=== PATIENT | female | born 1950 | race American Indian/Alaskan Native ===

== ENCOUNTER 2017-04-21 09:19 | Emergency (ER) | payer MEDICARE ==
[2017-04-21 09:55] LABS: Basophils % (Auto) 0.3 % (0.0-1.8); Eosinophils % (Auto) 1.6 % (0.0-4.3); Hemoglobin 11.9 gm/dl (10.1-14.3); Mean Corpuscular HGB Conc 33 % (30-34); Mean Corpuscular Hemoglobin 31 pg (28-32); Mean Corpuscular Volume 93 fl (79-97); Platelet Count 242 K/mm3 (140-440); Red Blood Count 3.87 M/mm3 (3.65-5.03); Red Cell Distribution Width 13.5 % (13.2-15.2); White Blood Count 7.3 K/mm3 (4.5-11.0)
[2017-04-21 10:07] LABS: INR 0.97 (0.87-1.13)
[2017-04-21 10:08] LABS: Partial Thromboplastin Time 27.8 Sec. (24.2-36.6)
[2017-04-21 10:10] LABS: Anion Gap 17 mmol/L; BUN/Creatinine Ratio 16.66; Blood Urea Nitrogen 15 mg/dL (7-17); Calcium 9.4 mg/dL (8.4-10.2); Carbon Dioxide 27 mmol/L (22-30); Glucose 340 mg/dL (65-100); Potassium 4.2 mmol/L (3.6-5.0); Sodium 136 mmol/L (137-145)
--- NOTE | 2017-04-21 10:26 | XRay Report ---
RIGHT TIBIA/FIBULA: History: Right leg swelling AP and lateral views of the right tibia/fibula demonstrate normal mineralization and contours for this patient's age. No destructive changes or fracture. There is mild diffuse soft tissue swelling. IMPRESSION: Mild soft tissue swelling.
[2017-04-21] MEDS ORDERED: ZOFRAN IV ONE (16:33)
[2017-04-21] MEDS ORDERED: LASIX IV ONE (16:33)
[2017-04-21] MEDS ORDERED: MORPHINE IV ONE (16:33)
[2017-04-21] MEDS ORDERED: TYLENOL PO ONE (18:08)
--- NOTE | 2017-04-21 19:30 | Cat Scan Report ---
FINAL REPORT PROCEDURE: CT HEAD/BRAIN WO CON TECHNIQUE: Computerized tomography of the head was performed without contrast material. HISTORY: Headache. DLP 1075.62 mGy-cm. COMPARISON: No prior studies are available for comparison. FINDINGS: Skull and scalp: Normal. Paranasal sinuses: Mild right sphenoid sinusitis. Ventricles and subarachnoid spaces: Normal. Cerebrum: No evidence of hemorrhage, acute infarction or mass. Punctate right basal ganglia calcifications. Small up to 4 millimeter areas of low attenuation right basal ganglia. Cerebellum and brainstem: No evidence of hemorrhage, acute infarction or mass. Vasculature: Mild atherosclerosis. Comments: None. IMPRESSION: No CT evidence of acute intracranial pathology. Areas of low in attenuation in the right basal ganglia likely small lacunes. Consider MRI of the brain for further evaluation if there is continued clinical concern and if patient has no contraindication to MRI. Right sphenoid sinusitis.
--- NOTE | 2017-04-21 19:33 | Emergency Department Report ---
HPI - General Chief Complaint: Extremity Injury, Lower Time Seen by Provider: 04/21/17 16:07 - HPI HPI: The patient is a 67-year-old female who presents for evaluation of headache and right leg pain. The patient reports mild achy frontal headache on and off, is exacerbated with movement, and right lower leg pain, moderate to severe, constant since onset, exacerbated with weightbearing, improved with rest, since sustaining a fall from standing 5 days ago. She states that she tripped 5 days ago, and struck her right lower leg and head on the ground. Since she has also experienced mild swelling to the right leg as well. She denies neuro deficits, neck pain, neck stiffness, chest pain, dyspnea, hemoptysis, back pain, abdominal pain, pain to the arms, paresthesias, motor deficit in the arms or legs. ED Past Medical Hx - Past Medical History Previous Medical History?: Yes Hx Hypertension: Yes Hx Diabetes: Yes Additional medical history: Hypercholesterolemia - Surgical History Past Surgical History?: Yes Additional Surgical History: Right side lymph node excision - Social History Smoking Status: Never Smoker Substance Use Type: None - Medications Home Medications: Home Medications Medication Instructions Recorded Confirmed Last Taken Type Albuterol Sulfate [Ventolin HFA] 2 puff IH Q4H PRN #1 hfa.aer.ad 12/08/14 Unknown Rx Azithromycin [Zithromax Z-RAHUL] 250 mg PO DAILY #6 tablet 12/08/14 Unknown Rx Benzonatate [Tessalon Perles] 100 mg PO Q8HR #30 capsule 12/08/14 Unknown Rx Acetaminophen/Codeine [Tylenol #3] 1 tab PO Q6H PRN #12 tab 04/21/17 Unknown Rx Furosemide [Lasix] 20 mg PO QDAY #10 tablet 04/21/17 Unknown Rx ED Review of Systems ROS: Stated complaint: FALL LEG PAIN Other details as noted in HPI Constitutional: denies: fever ENT: denies: throat or neck pain Respiratory: denies: cough, shortness of breath Cardiovascular: denies: chest pain Endocrine: denies unexplained weight loss or gain Gastrointestinal: denies: abdominal pain, nausea Genitourinary: denies: dysuria Musculoskeletal: reports right leg pain and leg swelling Skin: denies: rash Neurological: reports headache Hematological/Lymphatic: denies: easy bleeding or easy bruising Psych: denies sadness or hopelessness Physical Exam - Physical Exam Vital Signs: Vital Signs 04/21/17 09:31 Temperature 98.5 F Pulse Rate 70 Respiratory 16 Rate Blood Pressure 160/76 O2 Sat by Pulse 100 Oximetry Physical Exam: General: well-nourished, well-developed, no acute distress Head: Normocephalic, atraumatic Eyes: normal sclera, EOMI, PERRL ENT: Mucous membranes are pink and moist Neck: trachea midline, neck supple, No neck stiffness, no cervical adenopathy Respiratory: Breath sounds equal bilaterally, no wheezing, rales, or rhonchi Cardio: S1 and S2 present, no murmurs, rubs, gallops, capillary refill is brisk Abdomen: Normoactive bowel sounds, soft abdomen, no rigidity, no guarding or rebound tenderness Musc: Right lower leg anterior tenderness to palpation present, mild swelling, redness, and ecchymosis present as well, distal sensation, motor function and pulses intact in the right foot, compartments are soft and pliable in the right leg and foot, no signs of compartment syndrome Skin: No rash Neuro: no facial drooping, normal speech, alert oriented 3, no sensation or motor deficits, reflexes 2+ symmetric on DTR testing, no [place] deficit with finger to nose testing, no obvious gross neuro deficits Psych: Normal affect ED Course Vital Signs 04/21/17 09:31 Temperature 98.5 F Pulse Rate 70 Respiratory 16 Rate Blood Pressure 160/76 O2 Sat by Pulse 100 Oximetry ED Medical Decision Making - Lab Data Result diagrams: 04/21/17 09:41 04/21/17 09:41 - Medical Decision Making The patient was seen and examined by myself. The patient is placed on a athletic monitor and continuous pulse ox. On initial evaluation, the patient was found to be in no distress. Evaluation orders were placed. The patient is given morphine and Tylenol for her pain. X-ray of the tibia fibular right is unremarkable. Lab results revealed mildly elevated glucose of 300, and mildly elevated d-dimer level, and otherwise labs are unremarkable. Ultrasound of the right lower extremity is negative for DVT. The patient was reevaluated and reported that their symptoms were markedly improved. The patient is stable for discharge with outpatient follow-up. The patient is given follow-up and return instructions. The patient expressed understanding and agreed with the plan. The patient is discharged in stable condition. Critical care attestation.: If time is entered above; I have spent that time in minutes in the direct care of this critically ill patient, excluding procedure time. ED Disposition Clinical Impression: Acute post-traumatic headache, not intractable, Myalgia, Acute hyperglycemia Contusion of lower leg, right Qualifiers: Encounter type: initial encounter Qualified Code(s): S80.11XA - Contusion of right lower leg, initial encounter Disposition: TO HOME OR SELFCARE Is pt being admited?: No Does the pt Need Aspirin: No Condition: Stable Instructions: Cellulitis (ED), Acute Headache (ED), Contusion in Adults (ED), Musculoskeletal Pain (ED), Knee Pain (ED), Diabetic Hyperglycemia (ED) Prescriptions: Acetaminophen/Codeine [Tylenol #3] 1 tab PO Q6H PRN #12 tab PRN Reason: Pain Furosemide [Lasix] 20 mg PO QDAY #10 tablet Referrals: PRIMARY CARE, [Primary Care Provider] - 3-5 Days Time of Disposition: 19:30
[2017-04-21 20:04] VITALS: BP 188/78
--- NOTE | 2017-04-23 11:12 | Vascular Lab Report ---
Right Lower Extremity Venous Duplex Study: Reason for Exam: Pain of the right lower extremity. Comments on the Right: All veins visualized are freely compressible without evidence of internal echogenicity. Flow is spontaneous and phasic throughout. No evidence of acute or chronic thrombus is seen in any of the vessels visualized. Comments on the Left: A limited duplex study was done of the proximal veins of the left lower extremity. All veins visualized are freely compressible without evidence of internal echogenicity. Flow is spontaneous and phasic throughout. No evidence of acute or chronic thrombus is seen in any of the vessels visualized. Impression: No evidence of acute or chronic deep venous thrombosis in the right lower extremity.
== END 2017-04-21 20:05 | disposition home or self-care (01) ==
LOC: ED 09:19
DX: G44.319 Acute post-traumatic headache, not intractable (principal); S80.11XA Contusion of right lower leg, initial encounter; I10 Essential (primary) hypertension; E11.65 Type 2 diabetes mellitus with hyperglycemia; E78.00 Pure hypercholesterolemia, unspecified; W01.0XXA Fall on same level from slipping, tripping and stumbling without subsequent striking against object, initial encounter; Y93.89 Activity, other specified; Y92.89 Other specified places as the place of occurrence of the external cause; Y99.8 Other external cause status
CPT/HCPCS: 36415; 70450; 73590; 80048; 82962; 85025; 85379; 85610; 85730; 93971; 96374; 96375; 99285; J1940; J2270; J2405

== ENCOUNTER 2017-12-12 10:50 | Emergency (ER) | payer MEDICARE ==
--- NOTE | 2017-12-12 11:42 | Emergency Department Report ---
HPI - General Chief Complaint: Medical Clearance Time Seen by Provider: 12/12/17 11:29 - HPI HPI: Patient reports that she is off her insulin for 3 days and not feeling good today. She says she takes sliding scale insulin and also Levemir 40 units in the morning. She says she ran out. Denies any nausea or vomiting. Denies any chest pain or abdominal pain. Reported feeling of tiredness. Pain is 0-10. She has a history of high blood pressure and diabetes along with high cholesterol. Patient says she goes across the street for primary care. She said her hemoglobin A1c was greater than a last time but she cannot remember the specific number. Reports increased urination and thirst. Denies any shortness of breath. ED Past Medical Hx - Past Medical History Previous Medical History?: Yes Hx Hypertension: Yes Hx Diabetes: Yes Additional medical history: Hypercholesterolemia - Surgical History Past Surgical History?: Yes Additional Surgical History: Right side lymph node excision - Family History Family history: diabetes, hypertension - Social History Smoking Status: Never Smoker Substance Use Type: None - Medications Home Medications: Home Medications Medication Instructions Recorded Confirmed Last Taken Type Albuterol Sulfate [Ventolin HFA] 2 puff IH Q4H PRN #1 hfa.aer.ad 12/08/14 Unknown Rx Azithromycin [Zithromax Z-RAHUL] 250 mg PO DAILY #6 tablet 12/08/14 Unknown Rx Benzonatate [Tessalon Perles] 100 mg PO Q8HR #30 capsule 12/08/14 Unknown Rx Acetaminophen/Codeine [Tylenol #3] 1 tab PO Q6H PRN #12 tab 04/21/17 Unknown Rx Furosemide [Lasix] 20 mg PO QDAY #10 tablet 04/21/17 Unknown Rx Insulin Detemir [Levemir VIAL] 40 unit SQ QAM #1 vial 12/12/17 Unknown Rx ED Review of Systems ROS: Stated complaint: MEDICATION REFILL Other details as noted in HPI Comment: All other systems reviewed and negative Constitutional: weakness Respiratory: no symptoms reported Cardiovascular: denies: chest pain, palpitations, dyspnea on exertion, orthopnea , edema, syncope, paroxysmal nocturnal dyspnea Endocrine: increased hunger, increased thirst, increased urine. denies: excessive sweating, flushing, intolerance to cold, intolerance to heat, unexplained weight gain, unexplained weight loss Gastrointestinal: denies: abdominal pain, nausea, vomiting, diarrhea, constipation, hematemesis, melena, hematochezia Genitourinary: denies: urgency, dysuria, frequency, hematuria, discharge Musculoskeletal: denies: back pain, joint swelling, arthralgia, myalgia Skin: denies: rash Neurological: weakness. denies: headache, numbness, paresthesias, confusion, abnormal gait, vertigo Physical Exam - Physical Exam Vital Signs: Vital Signs 12/12/17 10:56 Temperature 98.4 F Pulse Rate 103 H Respiratory 16 Rate Blood Pressure 161/61 O2 Sat by Pulse 99 Oximetry Vital Signs 12/12/17 12/12/17 10:56 14:55 Temperature 98.4 F 97.1 F L Pulse Rate 103 H 80 Respiratory 16 18 Rate Blood Pressure 161/61 Blood Pressure 180/82 [Left] O2 Sat by Pulse 99 100 Oximetry General: This is a 67-year-old female well-nourished well-developed and nontoxic in appearance. Physical Exam: Head: Normocephalic, atraumatic, no abrasion, no bruising and no contusion. Eyes: Biateral pupils equal and reactive to light, bilateral EOM intact.. Bilateral conjunctival and sclera without injection, normal accommodation. Mouth: Moist, no pharyngeal exudate or erythema. No peritonsillar abscesses. Uvula is midline and oral airways patent. Neck: Supple, No Cervical adenopathy, full range of motion and no C-spine tenderness. No swelling or tracheal deviation normal reflexes Cardiovascular: S1, S2. Regular rate and rhythm. No murmur. Capillary refill is less then 3 seconds. Lungs: Clear to auscultate bilaterally. No rhonchi, wheezes or rales. No chest wall tenderness. No chest contusion. No bruising to chest. MSK: Strength 5/5 in all extremities. No joint deformity or crepitus. Normal inspection. Full range of motion to all extremities. No laceration, abrasion or ecchymotic area noted. Abdomen: Non-tender to palpate in all quadrants, no guarding or rebound tenderness, positive bowel sounds in all quadrants. No CVA tenderness. No hernia, bruit or mass. No rigidity or distention. Extremities: No clubbing, cyanosis or edema. +2 pulses. No neurovascular compromise Skin: Clean, dry and intact. No rash or lesions. Neurological: GCS at 15, Pt is alert and oriented 3 speech is clear . Bilateral hand extension course coordinator strong and equal. Normal gait. Negative Romberg and no pronator drift. Normal Reflexes. No motor or sensory deficit Back: No vertebral tenderness, no paraspinal tenderness. The bend over and touch his toes without any difficulties. Ambulates without any difficulties. Psych: Normal mood and behavior ED Course Vital Signs 12/12/17 10:56 Temperature 98.4 F Pulse Rate 103 H Respiratory 16 Rate Blood Pressure 161/61 O2 Sat by Pulse 99 Oximetry Vital Signs 12/12/17 12/12/17 10:56 14:55 Temperature 98.4 F 97.1 F L Pulse Rate 103 H 80 Respiratory 16 18 Rate Blood Pressure 161/61 Blood Pressure 180/82 [Left] O2 Sat by Pulse 99 100 Oximetry - Reevaluation(s) Reevaluation #1: 12/12/17 13:03 BG 560. ivf x2 liter. second liter infusing. Insulin 10 units r,egular Reevaluation #2: 12/12/17 14:13 Patient is stable at present. Second units of normal saline infusing. ED Medical Decision Making - Lab Data Result diagrams: 12/12/17 11:53 12/12/17 11:53 Lab Results 12/12/17 12/12/17 12/12/17 Range/Units 11:02 11:53 11:53 WBC 10.3 (4.5-11.0) K/mm3 RBC 3.81 (3.65-5.03) M/mm3 Hgb 12.2 (10.1-14.3) gm/dl Hct 36.4 (30.3-42.9) % MCV 95 (79-97) fl MCH 32 (28-32) pg MCHC 34 (30-34) % RDW 13.4 (13.2-15.2) % Plt Count 272 (140-440) K/mm3 Lymph % (Auto) 14.1 (13.4-35.0) % [place] % (Auto) 4.4 (0.0-7.3) % Eos % (Auto) 0.6 (0.0-4.3) % Baso % (Auto) 0.3 (0.0-1.8) % Lymph # 1.5 (1.2-5.4) K/mm3 [place] # 0.5 (0.0-0.8) K/mm3 Eos # 0.1 (0.0-0.4) K/mm3 Baso # 0.0 (0.0-0.1) K/mm3 Seg Neutrophils % 80.6 H (40.0-70.0) % Seg Neutrophils # 8.3 H (1.8-7.7) K/mm3 VBG pH (7.320-7.420) Sodium (137-145) mmol/L Potassium (3.6-5.0) mmol/L Chloride (98-107) mmol/L Carbon Dioxide (22-30) mmol/L Anion Gap mmol/L BUN (7-17) mg/dL Creatinine (0.7-1.2) mg/dL Estimated GFR ml/min BUN/Creatinine Ratio % Glucose (65-100) mg/dL POC Glucose 416 H (70-105) Calcium (8.4-10.2) mg/dL Total Bilirubin (0.1-1.2) mg/dL Direct Bilirubin (0-0.2) mg/dL Indirect Bilirubin mg/dL AST (5-40) units/L ALT (7-56) units/L Alkaline Phosphatase (35-129) units/L Total Protein (6.3-8.2) g/dL Albumin (3.9-5) g/dL Albumin/Globulin Ratio % Urine Color Straw (Yellow) Urine Turbidity Clear (Clear) Urine pH 5.0 (5.0-7.0) Ur Specific [place] 1.024 (1.003-1.030) Urine Protein <15 mg/dl (Negative) mg/dL Urine Glucose (UA) >=500 (Negative) mg/dL Urine Ketones 80 (Negative) mg/dL Urine Blood Neg (Negative) Urine Nitrite Neg (Negative) Urine Bilirubin Neg (Negative) Urine Urobilinogen < 2.0 (<2.0) mg/dL Ur Leukocyte Esterase Neg (Negative) Urine WBC (Auto) 3.0 (0.0-6.0) /HPF Urine RBC (Auto) 1.0 (0.0-6.0) /HPF U Epithel Cells (Auto) 4.0 (0-13.0) /HPF Urine Mucus Few /HPF 12/12/17 12/12/17 Range/Units 11:53 11:53 WBC (4.5-11.0) K/mm3 RBC (3.65-5.03) M/mm3 Hgb (10.1-14.3) gm/dl Hct (30.3-42.9) % MCV (79-97) fl MCH (28-32) pg MCHC (30-34) % RDW (13.2-15.2) % Plt Count (140-440) K/mm3 Lymph % (Auto) (13.4-35.0) % [place] % (Auto) (0.0-7.3) % Eos % (Auto) (0.0-4.3) % Baso % (Auto) (0.0-1.8) % Lymph # (1.2-5.4) K/mm3 [place] # (0.0-0.8) K/mm3 Eos # (0.0-0.4) K/mm3 Baso # (0.0-0.1) K/mm3 Seg Neutrophils % (40.0-70.0) % Seg Neutrophils # (1.8-7.7) K/mm3 VBG pH 7.304 L (7.320-7.420) Sodium 135 L (137-145) mmol/L Potassium 3.9 (3.6-5.0) mmol/L Chloride 91.4 L (98-107) mmol/L Carbon Dioxide 23 (22-30) mmol/L Anion Gap 25 mmol/L BUN 14 (7-17) mg/dL Creatinine 1.0 (0.7-1.2) mg/dL Estimated GFR > 60 ml/min BUN/Creatinine Ratio 14 % Glucose 560 H* (65-100) mg/dL POC Glucose (70-105) Calcium 8.9 (8.4-10.2) mg/dL Total Bilirubin 0.50 (0.1-1.2) mg/dL Direct Bilirubin < 0.2 (0-0.2) mg/dL Indirect Bilirubin 0.3 mg/dL AST 13 (5-40) units/L ALT 12 (7-56) units/L Alkaline Phosphatase 118 (35-129) units/L Total Protein 6.9 (6.3-8.2) g/dL Albumin 3.8 L (3.9-5) g/dL Albumin/Globulin Ratio 1.2 % Urine Color (Yellow) Urine Turbidity (Clear) Urine pH (5.0-7.0) Ur Specific [place] (1.003-1.030) Urine Protein (Negative) mg/dL Urine Glucose (UA) (Negative) mg/dL Urine Ketones (Negative) mg/dL Urine Blood (Negative) Urine Nitrite (Negative) Urine Bilirubin (Negative) Urine Urobilinogen (<2.0) mg/dL Ur Leukocyte Esterase (Negative) Urine WBC (Auto) (0.0-6.0) /HPF Urine RBC (Auto) (0.0-6.0) /HPF U Epithel Cells (Auto) (0-13.0) /HPF Urine Mucus /HPF Anion gap:21.5 mEq/L Corrected Anion Gap for Albumin High anion gap acidosis - Medical Decision Making ED course: Patient presented to emergency room complaining of not feeling well because her blood sugar is high and she's been out of her insulin for 3 days. Denies any nausea vomiting, abdominal pain. Physical findings with normal exam. Laboratory findings urine with positive ketones, positive glucose and protein. Chemistry with blood glucose of 560 ,corrected anion gap including albumin was 21.9 her venous pH is 7.3 which is slightly decrease in her CO2 is 23 which is stable. Sodium of 134. Patient received 2 L of normal saline IV, 10 units of regular insulin which brought her blood sugar down to 255. Patient stable throughout ED course she was able to tolerate water without any nausea or vomiting. Patient says she felt a lot better after IV fluids and insulin. She'll be discharged home to follow up with her primary care physician for management of her blood glucose. I discussed with her that she needs to keep a record of her blood sugar and take to her primary care visit with her for evaluation. Patient discharged home with prescription for Levemir insulin and regular insulin. Critical care attestation.: If time is entered above; I have spent that time in minutes in the direct care of this critically ill patient, excluding procedure time. ED Disposition Clinical Impression: Urine ketone, Glucosuria, Elevated blood pressure reading with diagnosis of hypertension Hyperglycemia due to type 2 diabetes mellitus Qualifiers: Diabetes mellitus prison insulin use: with prison use Qualified Code(s): E11.65 - Type 2 diabetes mellitus with hyperglycemia; Z79.4 - [facility] (current ) use of insulin Disposition: DC-01 TO HOME OR SELFCARE Is pt being admited?: No Does the pt Need Aspirin: No Condition: Stable Instructions: Diabetes Mellitus Type 2 in Adults (ED), Hypertension (ED), Diabetic Hyperglycemia (ED), How to Check Your Blood Sugar (ED) Additional Instructions: Please take insulin as instructed by her primary care physician Document your blood sugar before meals and at bedtime and take your primary care physician with you. Please follow diabetic diet that was given to you by her primary care doctor Increase her fluid intake to include water Prescriptions: Insulin Detemir [Levemir VIAL] 40 unit SQ QAM #1 vial Referrals: PRIMARY CAREMD [Primary Care Provider] - 12/13/17 ESTELA OH MD [Staff Physician] - 12/14/17 Forms: Work/School Release Form(ED)
[2017-12-12] MEDS ORDERED: NACL 0.9% 1000 ML 1,000 ML IV ONE ×2 (11:43→13:02)
[2017-12-12 12:09] LABS: Basophils % (Auto) 0.3 % (0.0-1.8); Eosinophils # (Auto) 0.1 K/mm3 (0.0-0.4); Eosinophils % (Auto) 0.6 % (0.0-4.3); Hematocrit 36.4 % (30.3-42.9); Hemoglobin 12.2 gm/dl (10.1-14.3); Lymphocytes # (Auto) 1.5 K/mm3 (1.2-5.4); Lymphocytes % (Auto) 14.1 % (13.4-35.0); Mean Corpuscular HGB Conc 34 % (30-34); Mean Corpuscular Hemoglobin 32 pg (28-32); Mean Corpuscular Volume 95 fl (79-97); Monocytes # (Auto) 0.5 K/mm3 (0.0-0.8); Monocytes % (Auto) 4.4 % (0.0-7.3); Platelet Count 272 K/mm3 (140-440); Red Blood Count 3.81 M/mm3 (3.65-5.03); Red Cell Distribution Width 13.4 % (13.2-15.2)
[2017-12-12 12:12] LABS: Bilirubin,Urine NEG (Negative); Blood,Urine NEG (Negative); Color,Urine Straw (Yellow); Mucus,Urine FEW /HPF; Protein,Urine <15 mg/dL mg/dL (Negative); Urobilinogen,Urine < 2.0 mg/dL (<2.0)
[2017-12-12 12:23] LABS: Alanine Aminotransferase 12 units/L (7-56); Albumin 3.8 g/dL (3.9-5); BUN/Creatinine Ratio 14; Blood Urea Nitrogen 14 mg/dL (7-17); Calcium 8.9 mg/dL (8.4-10.2); Hemolysis Index 27
[2017-12-12 12:34] LABS: Bilirubin,Direct < 0.2 mg/dL (0-0.2)
[2017-12-12] MEDS ORDERED: HumuLIN R IV ONE (13:02)
[2017-12-12 16:16] VITALS: BP 157/82
== END 2017-12-12 16:12 | disposition home or self-care (01) ==
LOC: ED 10:50
DX: I10 Essential (primary) hypertension (principal); E11.65 Type 2 diabetes mellitus with hyperglycemia; E78.00 Pure hypercholesterolemia, unspecified
CPT/HCPCS: 36415; 80048; 80074; 81001; 82805; 82962; 85025; 96361; 96374; 99284; J7030; J1815

== ENCOUNTER 2018-03-17 08:06 | Emergency (ER) | payer MEDICARE ==
[2018-03-17 08:38] LABS: Basophils % (Auto) 0.4 % (0.0-1.8); Eosinophils # (Auto) 0.1 K/mm3 (0.0-0.4); Eosinophils % (Auto) 1.3 % (0.0-4.3); Hematocrit 36.1 % (30.3-42.9); Hemoglobin 12.3 gm/dl (10.1-14.3); Lymphocytes # (Auto) 2.1 K/mm3 (1.2-5.4); Lymphocytes % (Auto) 30.4 % (13.4-35.0); Mean Corpuscular HGB Conc 34 % (30-34); Mean Corpuscular Hemoglobin 32 pg (28-32); Mean Corpuscular Volume 95 fl (79-97); Monocytes # (Auto) 0.6 K/mm3 (0.0-0.8); Monocytes % (Auto) 9.2 % (0.0-7.3); Platelet Count 275 K/mm3 (140-440); Red Blood Count 3.81 M/mm3 (3.65-5.03); Red Cell Distribution Width 13.3 % (13.2-15.2)
[2018-03-17 08:53] LABS: Alanine Aminotransferase 9 units/L (7-56); Albumin 3.9 g/dL (3.9-5); BUN/Creatinine Ratio 13; Blood Urea Nitrogen 13 mg/dL (7-17); Calcium 9.3 mg/dL (8.4-10.2); Hemolysis Index 3; Lipase 18 units/L (13-60)
[2018-03-17 08:54] LABS: Bacteria,Urine 1+ /HPF (Negative); Bilirubin,Urine NEG (Negative); Blood,Urine NEG (Negative); Color,Urine Yellow (Yellow); Hyaline Casts,Urine 1 /LPF; Mucus,Urine FEW /HPF; Protein,Urine <15 mg/dL mg/dL (Negative); Urobilinogen,Urine < 2.0 mg/dL (<2.0)
[2018-03-17] MEDS ORDERED: HumuLIN R IV ONE (11:27)
[2018-03-17] MEDS ORDERED: NACL 0.9% 500 ML 500 ML IV ONE (11:28)
[2018-03-17] MEDS ORDERED: TORADOL IV ONE (11:28)
--- NOTE | 2018-03-17 12:31 | Emergency Department Report ---
ED Abdominal Pain HPI - General Chief Complaint: Abdominal Pain Stated Complaint: LOWER SIDE ABD PAIN Time Seen by Provider: 03/17/18 11:19 Source: patient Mode of arrival: Ambulatory Limitations: No Limitations - History of Present Illness Initial Comments: 68-year-old female with a past medical history of elevated cholesterol, diabetes , hypertension, and previous cholecystectomy presents to the hospital complaining of left flank pain 1 week. Pain is intermittent and aching. Pain comes and goes without any specific activity or palpation. Patient also states she's having difficulty moving her bowels and did have a bowel movement after taking a lot of Ex-Lax. She did complain of nausea with 2 episodes of vomiting that has since resolved. She denies fever, dysuria, hematuria, diarrhea, melena , hematochezia, or hematemesis. Severity scale (0 -10): 2 - Related Data Previous Rx's Medication Instructions Recorded Last Taken Type Albuterol Sulfate [Ventolin HFA] 2 puff IH Q4H PRN #1 hfa.aer.ad 12/08/14 Unknown Rx Azithromycin [Zithromax Z-RAHUL] 250 mg PO DAILY #6 tablet 12/08/14 Unknown Rx Benzonatate [Tessalon Perles] 100 mg PO Q8HR #30 capsule 12/08/14 Unknown Rx Acetaminophen/Codeine [Tylenol #3] 1 tab PO Q6H PRN #12 tab 04/21/17 Unknown Rx Furosemide [Lasix] 20 mg PO QDAY #10 tablet 04/21/17 Unknown Rx Insulin Detemir [Levemir Flextouch] 40 unit SQ QAM #1 insuln.pen 12/12/17 Unknown Rx Docusate Sodium [Colace] 100 mg PO BID PRN #20 capsule 03/17/18 Unknown Rx Ibuprofen [Motrin] 800 mg PO Q8HR PRN #30 tablet 03/17/18 Unknown Rx traMADol [Ultram 50 MG tab] 50 mg PO Q6HR PRN #20 tablet 03/17/18 Unknown Rx Allergies Allergy/AdvReac Type Severity Reaction Status Date / Time No Known Allergies Allergy Unverified 12/08/14 16:58 ED Review of Systems ROS: Stated complaint: LOWER SIDE ABD PAIN Other details as noted in HPI Comment: All other systems reviewed and negative ED Past Medical Hx - Past Medical History Previous Medical History?: Yes Hx Hypertension: Yes Hx Diabetes: Yes Additional medical history: Hypercholesterolemia - Surgical History Past Surgical History?: Yes Hx Cholecystectomy: Yes Additional Surgical History: Right side lymph node excision - Social History Smoking Status: Current Every Day Smoker Substance Use Type: Prescribed - Medications Home Medications: Home Medications Medication Instructions Recorded Confirmed Last Taken Type Albuterol Sulfate [Ventolin HFA] 2 puff IH Q4H PRN #1 hfa.aer.ad 12/08/14 Unknown Rx Azithromycin [Zithromax Z-RAHUL] 250 mg PO DAILY #6 tablet 12/08/14 Unknown Rx Benzonatate [Tessalon Perles] 100 mg PO Q8HR #30 capsule 12/08/14 Unknown Rx Acetaminophen/Codeine [Tylenol #3] 1 tab PO Q6H PRN #12 tab 04/21/17 Unknown Rx Furosemide [Lasix] 20 mg PO QDAY #10 tablet 04/21/17 Unknown Rx Insulin Detemir [Levemir Flextouch] 40 unit SQ QAM #1 insuln.pen 12/12/17 Unknown Rx Docusate Sodium [Colace] 100 mg PO BID PRN #20 capsule 03/17/18 Unknown Rx Ibuprofen [Motrin] 800 mg PO Q8HR PRN #30 tablet 03/17/18 Unknown Rx traMADol [Ultram 50 MG tab] 50 mg PO Q6HR PRN #20 tablet 03/17/18 Unknown Rx ED Physical Exam - General Limitations: No Limitations - Other Other exam information: General: No limitations, patient is alert in no acute distress Head exam: Atraumatic, normocephalic Eyes exam: Normal appearance ENT: Moist mucous membrane, normal oropharynx Neck exam: Normal inspection, full range of motion, no meningismus nontender Respiratory exam: Clear to auscultation bilateral, no wheezes, rales, crackles Cardiovascular: Normal rate and rhythm, normal heart sounds Abdomen: Soft, nondistended, and nontender, with normal bowel sounds, no rebound, or guarding Extremity: Full range of motion normal inspection no deformity Back: Normal Inspection, full range of motion, pain at the left flank area but I reproduce Neurologic: Alert, oriented x3, cranial nerves intact, no motor or sensory deficit Psychiatric: normal affect, normal mood Skin: Warm, dry, intact ED Course Vital Signs 03/17/18 08:12 Temperature 98.2 F Pulse Rate 85 Respiratory 18 Rate Blood Pressure 165/70 O2 Sat by Pulse 100 Oximetry ED Medical Decision Making - Lab Data Result diagrams: 03/17/18 08:26 03/17/18 08:26 Lab Results 03/17/18 03/17/18 03/17/18 Range/Units 08:26 08:26 08:28 WBC 7.0 (4.5-11.0) K/mm3 RBC 3.81 (3.65-5.03) M/mm3 Hgb 12.3 (10.1-14.3) gm/dl Hct 36.1 (30.3-42.9) % MCV 95 (79-97) fl MCH 32 (28-32) pg MCHC 34 (30-34) % RDW 13.3 (13.2-15.2) % Plt Count 275 (140-440) K/mm3 Lymph % (Auto) 30.4 (13.4-35.0) % [place] % (Auto) 9.2 H (0.0-7.3) % Eos % (Auto) 1.3 (0.0-4.3) % Baso % (Auto) 0.4 (0.0-1.8) % Lymph # 2.1 (1.2-5.4) K/mm3 [place] # 0.6 (0.0-0.8) K/mm3 Eos # 0.1 (0.0-0.4) K/mm3 Baso # 0.0 (0.0-0.1) K/mm3 Seg Neutrophils % 58.7 (40.0-70.0) % Seg Neutrophils # 4.1 (1.8-7.7) K/mm3 Sodium 133 L (137-145) mmol/L Potassium 3.9 (3.6-5.0) mmol/L Chloride 89.9 L (98-107) mmol/L Carbon Dioxide 27 (22-30) mmol/L Anion Gap 20 mmol/L BUN 13 (7-17) mg/dL Creatinine 1.0 (0.7-1.2) mg/dL Estimated GFR > 60 ml/min BUN/Creatinine Ratio 13 % Glucose 309 H (65-100) mg/dL Calcium 9.3 (8.4-10.2) mg/dL Total Bilirubin 0.50 (0.1-1.2) mg/dL AST 13 (5-40) units/L ALT 9 (7-56) units/L Alkaline Phosphatase 109 (35-129) units/L Total Protein 7.0 (6.3-8.2) g/dL Albumin 3.9 (3.9-5) g/dL Albumin/Globulin Ratio 1.3 % Lipase 18 (13-60) units/L Urine Color Yellow (Yellow) Urine Turbidity Clear (Clear) Urine pH 5.0 (5.0-7.0) Ur Specific [place] 1.013 (1.003-1.030) Urine Protein <15 mg/dl (Negative) mg/dL Urine Glucose (UA) >=500 (Negative) mg/dL Urine Ketones Tr (Negative) mg/dL Urine Blood Neg (Negative) Urine Nitrite Neg (Negative) Urine Bilirubin Neg (Negative) Urine Urobilinogen < 2.0 (<2.0) mg/dL Ur Leukocyte Esterase Tr (Negative) Urine WBC (Auto) 3.0 (0.0-6.0) /HPF Urine RBC (Auto) 3.0 (0.0-6.0) /HPF U Epithel Cells (Auto) 23.0 H (0-13.0) /HPF Urine Bacteria (Auto) 1+ (Negative) /HPF Hyaline Casts 1 /LPF Urine Mucus Few /HPF - Radiology Data Radiology results: report reviewed CT abdomen and pelvis noncontrast,: unremarkable urinary tract. Nonobstructing umbilical hernia. Severe degenerative lower thoracic and lumbar changes. - Medical Decision Making Patient has left flank pain exacerbated with movement while in the ED. Labs a urine unremarkable with exception of hyperglycemia which was improved with treatment in the ED. Patient was fed prior to discharge. Pain improved with ED treatment of Toradol. Tramadol will be provided prior to discharge and additional medication will be prescribed. - Differential Diagnosis renal colic, UTI, constipation, diverticulitis, muscle strain Critical Care Time: No Critical care attestation.: If time is entered above; I have spent that time in minutes in the direct care of this critically ill patient, excluding procedure time. ED Disposition Clinical Impression: Flank strain, DJD (degenerative joint disease), thoracolumbar, Diabetes Disposition: DC-01 TO HOME OR SELFCARE Is pt being admited?: No Does the pt Need Aspirin: No Condition: Stable Instructions: Flank Pain (ED), Degenerative Disc Disease (ED), Diabetes Mellitus Type 2 in Adults (ED) Additional Instructions: Follow-up with the primary care doctor. Return is symptoms worsen as indicated by your discharge instructed. Take medications as prescribed. Prescriptions: Docusate Sodium [Colace] 100 mg PO BID PRN #20 capsule PRN Reason: Constipation Ibuprofen [Motrin] 800 mg PO Q8HR PRN #30 tablet PRN Reason: Pain traMADol [Ultram 50 MG tab] 50 mg PO Q6HR PRN #20 tablet PRN Reason: Pain Referrals: PRIMARY CARE, [Primary Care Provider] - 3-5 Days Time of Disposition: 13:50
--- NOTE | 2018-03-17 13:05 | Cat Scan Report ---
CT abdomen and pelvis without contrast: Right flank pain and constipation. Transverse images are performed from the lung bases to the ischium with coronal and sagittal 2-D reformatted images. The visualized lung bases are clear. The gallbladder has been removed. The abdominal and retroperitoneal organs appear normal. Specifically no evidence of renal calcification. The abdominal aorta is normal in size and contour. The unopacified bowel and mesentery appear normal. The appendix is not identified. No evidence of inflammatory change is noted. No abnormal collections. There is an umbilical hernia containing mesenteric fat. The hernia measures 14 mm in width. There are some calcifications in the uterus most likely related to small fibroids. There is diffuse spondylosis of the lower thoracic and lumbar levels. There is mild retrolisthesis of L2 on L3. There is diffuse narrowing of the interspaces in the lower thoracic and upper lumbar levels as well as L5. Impressions: 1. Unremarkable urinary tract. 2. Nonobstructing umbilical hernia. 3. Severe degenerative lower thoracic and lumbar changes.
[2018-03-17] MEDS ORDERED: ULTRAM PO ONE (13:46)
[2018-03-17 14:11] VITALS: BP 181/57
== END 2018-03-17 14:10 | disposition home or self-care (01) ==
LOC: ED 08:06
DX: M47.9 Spondylosis, unspecified (principal); I10 Essential (primary) hypertension; E11.9 Type 2 diabetes mellitus without complications; F17.200 Nicotine dependence, unspecified, uncomplicated; Z79.4 Long term (current) use of insulin
CPT/HCPCS: 36415; 74176; 80053; 81001; 82962; 83690; 85025; 96374; 96375; 99284; J1885; J7040; J1815

== ENCOUNTER 2020-02-12 20:10 | Inpatient (IN) | payer MEDICARE, OTHER ==
[2020-02-12] MEDS ORDERED: SODIUM CHLORIDE 0.9% 1000 ML 1,000 ML IV ONE ×2 (20:17→21:50)
--- NOTE | 2020-02-12 20:19 | Emergency Department Report ---
ED General Adult HPI - General Chief complaint: Weakness Stated complaint: HIGH BLOOD SUGAR PUI?: No Time Seen by Provider: 02/12/20 20:14 Source: patient, EMS (Verbal report received from emergency medical services. EMS documentation not available at time of chart dictation ), RN notes reviewed, old records reviewed Mode of arrival: Stretcher Limitations: Altered Mental Status, Physical Limitation - History of Present Illness Initial comments: Patient is a 69-year-old female. She has a history of diabetes. She also has a history of COPD. She does not know who her primary care doctor is. History obtained mostly from EMS. Apparently, emergency services were called because the patient was having weakness, confusion, nausea vomiting and hyperglycemia. The patient is mildly confused, but she tells me that she has been having nausea and vomiting, weakness, abdominal pain, malaise and fatigue. She denies headache, neck pain, chest pain, shortness of breath, irritative and obstructive urinary symptoms. She is not sure if she is taking any diabetic medications. She has difficulty describing exacerbating or relieving factors. -: unknown Consistency: other Improves with: other Worsens with: other Associated Symptoms: other - Related Data Previous Rx's Medication Instructions Recorded Last Taken Type Albuterol Sulfate [Ventolin HFA] 2 puff IH Q4H PRN #1 hfa.aer.ad 12/08/14 Unknown Rx Azithromycin [Zithromax Z-RAHUL] 250 mg PO DAILY #6 tablet 12/08/14 Unknown Rx Benzonatate [Tessalon Perles] 100 mg PO Q8HR #30 capsule 12/08/14 Unknown Rx Acetaminophen/Codeine [Tylenol #3] 1 tab PO Q6H PRN #12 tab 04/21/17 Unknown Rx Furosemide [Lasix] 20 mg PO QDAY #10 tablet 04/21/17 Unknown Rx Insulin Detemir (Nf) [Levemir 40 unit SQ QAM #1 insuln.pen 12/12/17 Unknown Rx Flextouch] Docusate Sodium [Colace] 100 mg PO BID PRN #20 capsule 03/17/18 Unknown Rx Ibuprofen [Motrin] 800 mg PO Q8HR PRN #30 tablet 03/17/18 Unknown Rx traMADoL [Ultram 50 MG tab] 50 mg PO Q6HR PRN #20 tablet 03/17/18 Unknown Rx Allergies Allergy/AdvReac Type Severity Reaction Status Date / Time No Known Allergies Allergy Unverified 12/08/14 16:58 ED Review of Systems ROS: Stated complaint: HIGH BLOOD SUGAR Other details as noted in HPI Comment: Unobtainable due to pts medical conditions Constitutional: malaise, weakness Endocrine: increased thirst, increased urine Gastrointestinal: abdominal pain ED Past Medical Hx - Past Medical History Hx Hypertension: Yes Hx Diabetes: Yes Additional medical history: Hypercholesterolemia - Surgical History Hx Cholecystectomy: Yes Additional Surgical History: Right side lymph node excision - Social History Smoking Status: Current Every Day Smoker Substance Use Type: Prescribed - Medications Home Medications: Home Medications Medication Instructions Recorded Confirmed Last Taken Type Albuterol Sulfate [Ventolin HFA] 2 puff IH Q4H PRN #1 hfa.aer.ad 12/08/14 Unknown Rx Azithromycin [Zithromax Z-RAHUL] 250 mg PO DAILY #6 tablet 12/08/14 Unknown Rx Benzonatate [Tessalon Perles] 100 mg PO Q8HR #30 capsule 12/08/14 Unknown Rx Acetaminophen/Codeine [Tylenol #3] 1 tab PO Q6H PRN #12 tab 04/21/17 Unknown Rx Furosemide [Lasix] 20 mg PO QDAY #10 tablet 04/21/17 Unknown Rx Insulin Detemir (Nf) [Levemir 40 unit SQ QAM #1 insuln.pen 12/12/17 Unknown Rx Flextouch] Docusate Sodium [Colace] 100 mg PO BID PRN #20 capsule 03/17/18 Unknown Rx Ibuprofen [Motrin] 800 mg PO Q8HR PRN #30 tablet 03/17/18 Unknown Rx traMADoL [Ultram 50 MG tab] 50 mg PO Q6HR PRN #20 tablet 03/17/18 Unknown Rx ED Physical Exam - General Limitations: Other (Confusion, weakness) General appearance: anxious, in distress, other (The patient is listless) - Head Head exam: Present: atraumatic, normocephalic - Eye Eye exam: Present: normal appearance, EOMI. Absent: nystagmus - ENT ENT exam: Present: mucous membranes dry, normal external ear exam - Neck Neck exam: Present: normal inspection, full ROM. Absent: tenderness, meningismus - Respiratory Respiratory exam: Present: decreased breath sounds. Absent: respiratory distress - Cardiovascular Cardiovascular Exam: Present: normal rhythm, tachycardia, normal heart sounds. Absent: systolic murmur, diastolic murmur, rubs, gallop - GI/Abdominal GI/Abdominal exam: Present: soft, tenderness. Absent: distended, guarding, rebound, rigid, pulsatile mass - Extremities Exam Extremities exam: Present: normal inspection, full ROM, other (2+ pulses noted in the bilateral upper and lower extremities. There is no palpable cord. negative Homans sign. Muscular compartments are soft. The pelvis is stable.). Absent: calf tenderness - Back Exam Back exam: Present: normal inspection, full ROM. Absent: tenderness, CVA tende rness (R), CVA tenderness (L), paraspinal tenderness, vertebral tenderness - Neurological Exam Neurological exam: Present: alert, other (No facial droop. Tongue midline. Extraocular movements intact bilaterally. Facial sensation intact to light touch in V1, V2, V3 distribution bilaterally. 5 and a 5 strength in 4 extremities. Sensation intact to light touch in 4 extremities.) - Psychiatric Psychiatric exam: Present: anxious - Skin Skin exam: Present: warm, dry, intact, normal color. Absent: rash ED Course Vital Signs 02/12/20 02/12/20 02/12/20 20:17 20:24 20:30 Temperature 97.8 F Pulse Rate 100 H 106 H Respiratory 18 18 16 Rate Blood Pressure 150/51 150/51 O2 Sat by Pulse 100 100 100 Oximetry 02/12/20 02/12/20 02/12/20 21:00 21:09 21:46 Temperature 96.2 F L Pulse Rate 140 H 99 H Respiratory 21 21 Rate Blood Pressure 127/52 134/57 O2 Sat by Pulse 100 100 Oximetry 02/12/20 02/12/20 22:06 22:16 Temperature Pulse Rate 100 H 101 H Respiratory 17 22 Rate Blood Pressure 134/57 134/48 O2 Sat by Pulse 100 100 Oximetry - Reevaluation(s) Reevaluation #1: 02/12/20 21:48 Differential diagnosis, including but not limited to: Diabetic hyperglycemia, diabetic ketoacidosis, hyperosmolar state, volume depletion, dehydration, pneumonia, urinary tract infection, intracranial lesion, intra-abdominal lesion Assessment and plan: 69-year-old female with complaint of generalized weakness, malaise and fatigue, nausea vomiting abdominal pain, slightly confused, GCS of 14, no history of trauma, found to have evidence of hyperglycemia, anion gap acidosis, leukocytosis, and lactic acidosis. Patient does not have any neck pain or stiffness, or nuchal rigidity. She is alert and oriented to name, place and location. This is not suggestive of meningitis. We do suspect a toxic metabolic encephalopathy, likely secondary to hyperosmolar state versus diabetic ketoacidosis. IV fluids, insulin, antibiotics ordered. CT scan brain, abdomen pelvis ordered. She will be admitted to the medical service once her diagnostics have resulted. Reevaluation #2: 02/12/20 22:15 Dr Kev Payton to admit Reevaluation #3: 02/12/20 22:28 CT scan brain negative for acute findings, CT scan abdomen pelvis negative for acute emergent findings. Incidental orthopedic findings can be followed up as an outpatient once she has been medically optimized. ED Medical Decision Making - Lab Data Result diagrams: 02/12/20 20:32 02/12/20 21:38 Vital Signs 02/12/20 02/12/20 20:17 20:24 Temperature 97.8 F Pulse Rate 100 H Respiratory 18 18 Rate Blood Pressure 150/51 O2 Sat by Pulse 100 100 Oximetry Lab Results 02/12/20 02/12/20 Range/Units 20:32 20:32 WBC 16.9 H (4.5-11.0) K/mm3 RBC 3.27 L (3.65-5.03) M/mm3 Hgb 10.5 (10.1-14.3) gm/dl Hct 36.8 (30.3-42.9) % MCV 113 H (79-97) fl MCH 32 (28-32) pg MCHC 29 L (30-34) % RDW 15.6 H (13.2-15.2) % Plt Count 260 (140-440) K/mm3 Lymph % (Auto) 7.4 L (13.4-35.0) % [place] % (Auto) 7.7 H (0.0-7.3) % Eos % (Auto) 0.3 (0.0-4.3) % Baso % (Auto) 0.4 (0.0-1.8) % Lymph # 1.2 (1.2-5.4) K/mm3 [place] # 1.3 H (0.0-0.8) K/mm3 Eos # 0.0 (0.0-0.4) K/mm3 Baso # 0.1 (0.0-0.1) K/mm3 Seg Neutrophils % 84.2 H (40.0-70.0) % Seg Neutrophils # 14.2 H (1.8-7.7) K/mm3 VBG pH 7.076 L* (7.320-7.420) - EKG Data -: EKG Interpreted by Me EKG shows normal: sinus rhythm Rate: bradycardia - EKG Data 02/12/20 21:48 Sinus rhythm, 96 bpm, OR interval within normal limits, QTC 482 ms. There is motion artifact. Premature complexes. Not a STEMI. - Radiology Data Radiology results: report reviewed, image reviewed interpreted by me: Noncontrast CT scan of the brain, interpreted by myself, negative for acute findings, chronic findings noted Print Report Referring Physician: KIMI LAZARO Patient Name: CAMRYN JOY Date of : 1950 Sex: Female Report Date: 2020-02-12 Report Status: Finalized Findings [address] [address] XRay Report Signed Patient: CAMRYN JOY MR#: [id number] : 1950 Acct:[id number] Age/Sex: 69 / F ADM Date: 02/12/20 Loc: ED Attending Dr: Ordering Physician: KIMI LAZARO MD Date of Service: 02/12/20 Procedure(s): XR chest 1V ap Accession Number(s): [id number] cc: KIMI LAZARO MD Fluoro Time In Minutes: CHEST 1 VIEW 02/12/2020 7:43 PM INDICATION / CLINICAL INFORMATION: MAIN: Altered Mental Status; complaints of nausea, vomiting and elevated blood glucose. COMPARISON: None available. FINDINGS: SUPPORT DEVICES: None. HEART / MEDIASTINUM: No significant abnormality. LUNGS / PLEURA: No significant pulmonary or pleural abnormality. No pneumothorax. ADDITIONAL FINDINGS: Surgical clips right axillary region. IMPRESSION: 1. No acute findings. Signer Name: Teo Jo MD Signed: 02/12/2020 8:50 PM Workstation Name: [id number] Transcribed By: TL Dictated By: Teo Jo MD Electronically Authent icated By: Teo Jo MD Signed Date/Time: 02/12/202049 DD/ 49 TD/TT: Critical Care Time: Yes Critical care time in (mins) excluding proc time.: 45 Critical care attestation.: If time is entered above; I have spent that time in minutes in the direct care of this critically ill patient, excluding procedure time. ED Disposition Clinical Impression: DKA (diabetic ketoacidoses), BRITTNEY (acute kidney injury), SIRS (systemic inflammatory response syndrome), Dehydration Disposition: OP ADMIT IP TO THIS HOSP Is pt being admited?: Yes Does the pt Need Aspirin: No Condition: Critical Instructions: Diabetic Ketoacidosis (ED) Referrals: PRIMARY CARE, [Primary Care Provider] - 3-5 Days
[2020-02-12 20:52] LABS: Basophils # (Auto) 0.1 K/mm3 (0.0-0.1); Basophils % (Auto) 0.4 % (0.0-1.8); Eosinophils % (Auto) 0.3 % (0.0-4.3); Lymphocytes # (Auto) 1.2 K/mm3 (1.2-5.4); Lymphocytes % (Auto) 7.4 % (13.4-35.0); Mean Corpuscular HGB Conc 29 % (30-34); Monocytes # (Auto) 1.3 K/mm3 (0.0-0.8); Monocytes % (Auto) 7.7 % (0.0-7.3); Platelet Count 260 K/mm3 (140-440); Red Blood Count 3.27 M/mm3 (3.65-5.03); Red Cell Distribution Width 15.6 % (13.2-15.2)
[2020-02-12 20:53] LABS: Hemoglobin 10.5 gm/dl (10.1-14.3)
[2020-02-12 20:54] LABS: Hematocrit 36.8 % (30.3-42.9); Mean Corpuscular Volume 113 fl (79-97)
--- NOTE | 2020-02-12 20:55 | XRay Report ---
CHEST 1 VIEW 02/12/2020 7:43 PM INDICATION / CLINICAL INFORMATION: MAIN: Altered Mental Status; complaints of nausea, vomiting and elevated blood glucose. COMPARISON: None available. FINDINGS: SUPPORT DEVICES: None. HEART / MEDIASTINUM: No significant abnormality. LUNGS / PLEURA: No significant pulmonary or pleural abnormality. No pneumothorax. ADDITIONAL FINDINGS: Surgical clips right axillary region. IMPRESSION: 1. No acute findings. Signer Name: Teo Jo MD Signed: 02/12/2020 8:50 PM Workstation Name: [id number]
[2020-02-12 21:03] LABS: INR 1.24 (0.87-1.13)
[2020-02-12 21:13] LABS: Albumin 3.9 g/dL (3.9-5); Calcium 9.4 mg/dL (8.4-10.2)
[2020-02-12 21:26] LABS: Bacteria,Urine 2+ /HPF (Negative); Bilirubin,Urine NEG (Negative); Blood,Urine SM (Negative); Color,Urine Straw (Yellow); Mucus,Urine FEW /HPF; Protein,Urine <15 mg/dL mg/dL (Negative); Urobilinogen,Urine < 2.0 mg/dL (<2.0)
[2020-02-12] MEDS ORDERED: cefTRIAXone/NS 2 GM/100 ML 2 GM/100 ML BAG IV ONE (21:32)
[2020-02-12] MEDS ORDERED: SODIUM CHLORIDE 0.9% 1000 ML 2,000 ML IV ONE (21:32)
[2020-02-12] MEDS ORDERED: INSULIN REGULAR, HUMAN 100 UNITS/1 ML IV ONE (21:33)
[2020-02-12] MEDS ORDERED: DEXTROSE 50% IN WATER (25GM) 50 ML SYRINGE IV PRN (21:33)
[2020-02-12 22:06] LABS: Calcium 9.1 mg/dL (8.4-10.2)
--- NOTE | 2020-02-12 22:17 | Cat Scan Report ---
CT HEAD WITHOUT CONTRAST INDICATION / CLINICAL INFORMATION: Altered Mental Status. TECHNIQUE: All CT scans at this location are performed using CT dose reduction for ALARA by means of automated e xposure control. COMPARISON: None available. FINDINGS: HEMORRHAGE: None. EXTRA-AXIAL SPACES: Normal in size and morphology for the patient's age. VENTRICULAR SYSTEM: Normal in size and morphology for the patient's age. CEREBRAL PARENCHYMA: No significant abnormality. No acute territorial infarct. MIDLINE SHIFT OR HERNIATION: None. CEREBELLUM / BRAINSTEM: No significant abnormality. ORBITS: Normal as visualized. SOFT TISSUES of HEAD: No significant abnormality. CALVARIUM: No significant abnormality. PARANASAL SINUSES / MASTOID AIR CELLS: Normal as visualized. ADDITIONAL FINDINGS: None. IMPRESSION: 1. No acute intracranial abnormality. Signer Name: Teo Jo MD Signed: 02/12/2020 10:13 PM Workstation Name: [id number]
--- NOTE | 2020-02-12 22:22 | Cat Scan Report ---
CT ABDOMEN AND PELVIS WITHOUT CONTRAST INDICATION: n/v weak hyperglycemia. TECHNIQUE: Axial CT images were obtained through the abdomen and pelvis without IV contrast. All CT scans at is location are performed using CT dose reduction for ALARA by means of automated exposure control. COMPARISON: CT abdomen pelvis 03/17/2018 FINDINGS: LOWER CHEST: No significant abnormality. LIVER: Moderate decreased attenuation characteristic for steatosis. GALLBLADDER: Surgically absent. BILE DUCTS: No significant abnormality. PANCREAS: No significant abnormality. SPLEEN: No significant abnormality. ADRENALS: No significant abnormality. RIGHT KIDNEY and URETER: No significant abnormality. LEFT KIDNEY and URETER: No significant abnormality. STOMACH and SMALL BOWEL: No significant abnormality. COLON: No significant abnormality. APPENDIX: No significant abnormality. PERITONEUM: Small fat-containing umbilical hernia, unchanged. No free fluid. No free air. No fluid co llection. LYMPH NODES: No significant adenopathy. AORTA and ARTERIES: No significant abnormality. IVC and VEINS: No significant abnormality. URINARY BLADDER: No significant abnormality. REPRODUCTIVE ORGANS: No significant abnormality. ADDITIONAL FINDINGS: None. SKELETAL SYSTEM: Moderately advanced multilevel degenerative changes of lumbar spine. Osteonecrosis o f right femoral head with subchondral collapse and mild secondary degenerative arthrosis. IMPRESSION: 1. No significant abnormality. 2. Hepatic steatosis. 3. Osteonecrosis with subchondral collapse right femoral head with secondary degenerative changes. Signer Name: Teo Jo MD Signed: 02/12/2020 10:17 PM Workstation Name: [id number]
[2020-02-12] MEDS ORDERED: ONDANSETRON 4 MG/2 ML INJ IV PRN (22:43)
[2020-02-12] MEDS: INSULIN REGULAR, HUMAN 100 UNITS in SODIUM CHLORIDE 0.9% 99 ML IV SCH (22:54)
--- NOTE | 2020-02-12 23:13 | History and Physical Report ---
History of Present Illness Date of examination: 02/12/20 Date of admission: 02/12/2020 Chief complaint: Confusion Generalized weakness. History of present illness: 69-year-old -[place] female with known history of COPD and diabetes mellitus brought in by EMS today after they were called because patient was having weakness, confusion, nausea and vomiting and elevated blood sugar. Patient unable to give a very good history as she is confused and most of the history was gotten from the emergency room physician. However patient was able to state that she was feeling very weak and having some abdominal pain. She denies any headache, no chest pain or shortness of breath but has been having some nausea and vomiting. Denies any diarrhea. Denies any hematuria or dysuria. Work-up in the emergency room reveals blood glucose greater than 1000 and tami colbert was apparently in DKA. She was started on IV fluid and also placed on insulin drip. Family members not available during this history and physical. Past History Past Medical History: COPD, diabetes, hypertension, hyperlipidemia Past Surgical History: No surgical history, cholecystectomy Social history: smoking (Daily smoker) Family history: no significant family history Medications and Allergies Allergies Allergy/AdvReac Type Severity Reaction Status Date / Time No Known Allergies Allergy Unverified 12/08/14 16:58 Home Medications Medication Instructions Recorded Confirmed Last Taken Type Albuterol Sulfate [Ventolin HFA] 2 puff IH Q4H PRN #1 hfa.aer.ad 12/08/14 Unknown Rx Azithromycin [Zithromax Z-RAHUL] 250 mg PO DAILY #6 tablet 12/08/14 Unknown Rx Benzonatate [Tessalon Perles] 100 mg PO Q8HR #30 capsule 12/08/14 Unknown Rx Acetaminophen/Codeine [Tylenol #3] 1 tab PO Q6H PRN #12 tab 04/21/17 Unknown Rx Furosemide [Lasix] 20 mg PO QDAY #10 tablet 04/21/17 Unknown Rx Insulin Detemir (Nf) [Levemir 40 unit SQ QAM #1 insuln.pen 12/12/17 Unknown Rx Flextouch] Docusate Sodium [Colace] 100 mg PO BID PRN #20 capsule 03/17/18 Unknown Rx Ibuprofen [Motrin] 800 mg PO Q8HR PRN #30 tablet 03/17/18 Unknown Rx traMADoL [Ultram 50 MG tab] 50 mg PO Q6HR PRN #20 tablet 03/17/18 Unknown Rx Active Meds: Active Medications Dextrose (D50w (25gm) Syringe) 0 ml IV Q30MIN PRN; Protocol PRN Reason: Hypoglycemia Heparin Sodium (Porcine) (Heparin) 5,000 unit SUB-Q Q8HR IVANA Insulin Human Regular 100 (units/ Sodium Chloride) 100 mls @ 1 mls/hr IV TITR IVANA; Protocol Last Admin: 02/12/20 22:54 Dose: 8 units/hr, 8 mls/hr Documented by: Potassium Chloride/Dextrose/Sod Cl (D5w/0.45% Nacl/Kcl 20 Meq) 20 meq in 1,000 mls @ 125 mls/hr IV DIRECT IVANA Ondansetron HCl (Zofran) 4 mg IV Q8H PRN PRN Reason: Nausea And Vomiting Sodium Chloride (Sodium Chloride Flush Syringe 10 Ml) 10 ml IV PRN PRN PRN Reason: LINE FLUSH Sodium Chloride (Sodium Chloride Flush Syringe 10 Ml) 10 ml IV BID IVANA Review of Systems ROS unobtainable: due to mental status Exam - Constitutional Vitals: Temp Pulse Resp BP Pulse Ox 96.2 F L 102 H 21 142/56 100 02/12/20 21:09 02/12/20 23:00 02/12/20 23:00 02/12/20 23:00 02/12/20 23:00 General appearance: Present: mild distress, well-nourished - EENT Eyes: Present: PERRL, EOM intact ENT: hearing intact, clear oral mucosa, dentition normal - Neck Neck: Present: supple, normal ROM - Respiratory Respiratory effort: normal Respiratory: bilateral: CTA - Cardiovascular Rhythm: regular Heart Sounds: Present: S1 & S2 - Extremities Extremities: no ischemia, pulses intact, pulses symmetrical, No edema, Full ROM Peripheral Pulses: within normal limits - Abdominal General gastrointestinal: Present: soft, non-tender, non-distended, normal bowel sounds - Integumentary Integumentary: Present: clear, warm, dry - Musculoskeletal Musculoskeletal: generalized weakness - Psychiatric Psychiatric: cooperative, other (Appears confused.) - Neurologic Neurologic: CNII-XII intact, moves all extremities Results - Labs CBC & Chem 7: 02/12/20 20:32 02/12/20 23:05 Labs: Abnormal lab results 02/12/20 02/12/20 02/12/20 Range/Units 20:32 20:32 20:32 WBC 16.9 H (4.5-11.0) K/mm3 RBC 3.27 L (3.65-5.03) M/mm3 MCV 113 H (79-97) fl MCHC 29 L (30-34) % RDW 15.6 H (13.2-15.2) % Lymph % (Auto) 7.4 L (13.4-35.0) % [place] % (Auto) 7.7 H (0.0-7.3) % [place] # 1.3 H (0.0-0.8) K/mm3 Seg Neutrophils % 84.2 H (40.0-70.0) % Seg Neutrophils # 14.2 H (1.8-7.7) K/mm3 PT 15.3 H (12.2-14.9) Sec. INR 1.24 H (0.87-1.13) VBG pH (7.320-7.420) Sodium 128 L (137-145) mmol/L Potassium 5.7 H (3.6-5.0) mmol/L Chloride 83.9 L (98-107) mmol/L Carbon Dioxide 11 L (22-30) mmol/L BUN 51 H (7-17) mg/dL Creatinine 2.1 H (0.7-1.2) mg/dL Glucose 1043 H* (65-100) mg/dL Lactic Acid (0.7-2.0) mmol/L Phosphorus (2.5-4.5) mg/dL Magnesium (1.7-2.3) mg/dL Alkaline Phosphatase 159 H (35-129) units/L Ammonia (25-60) umol/L Salicylates (2.8-20.0) mg/dL Acetaminophen (10.0-30.0) ug/mL 02/12/20 02/12/20 02/12/20 Range/Units 20:32 20:32 20:32 WBC (4.5-11.0) K/mm3 RBC (3.65-5.03) M/mm3 MCV (79-97) fl MCHC (30-34) % RDW (13.2-15.2) % Lymph % (Auto) (13.4-35.0) % [place] % (Auto) (0.0-7.3) % [place] # (0.0-0.8) K/mm3 Seg Neutrophils % (40.0-70.0) % Seg Neutrophils # (1.8-7.7) K/mm3 PT (12.2-14.9) Sec. INR (0.87-1.13) VBG pH (7.320-7.420) Sodium (137-145) mmol/L Potassium (3.6-5.0) mmol/L Chloride (98-107) mmol/L Carbon Dioxide (22-30) mmol/L BUN (7-17) mg/dL Creatinine (0.7-1.2) mg/dL Glucose (65-100) mg/dL Lactic Acid 4.30 H* (0.7-2.0) mmol/L Phosphorus (2.5-4.5) mg/dL Magnesium (1.7-2.3) mg/dL Alkaline Phosphatase (35-129) units/L Ammonia 62.0 H (25-60) umol/L Salicylates < 0.3 L (2.8-20.0) mg/dL Acetaminophen (10.0-30.0) ug/mL 02/12/20 02/12/20 02/12/20 Range/Units 20:32 20:32 20:32 WBC (4.5-11.0) K/mm3 RBC (3.65-5.03) M/mm3 MCV (79-97) fl MCHC (30-34) % RDW (13.2-15.2) % Lymph % (Auto) (13.4-35.0) % [place] % (Auto) (0.0-7.3) % [place] # (0.0-0.8) K/mm3 Seg Neutrophils % (40.0-70.0) % Seg Neutrophils # (1.8-7.7) K/mm3 PT (12.2-14.9) Sec. INR (0.87-1.13) VBG pH 7.076 L* (7.320-7.420) Sodium (137-145) mmol/L Potassium (3.6-5.0) mmol/L Chloride (98-107) mmol/L Carbon Dioxide (22-30) mmol/L BUN (7-17) mg/dL Creatinine (0.7-1.2) mg/dL Glucose (65-100) mg/dL Lactic Acid (0.7-2.0) mmol/L Phosphorus (2.5-4.5) mg/dL Magnesium 3.10 H (1.7-2.3) mg/dL Alkaline Phosphatase (35-129) units/L Ammonia (25-60) umol/L Salicylates (2.8-20.0) mg/dL Acetaminophen < 5.0 L (10.0-30.0) ug/mL 02/12/20 02/12/20 Range/Units 21:38 21:38 WBC (4.5-11.0) K/mm3 RBC (3.65-5.03) M/mm3 MCV (79-97) fl MCHC (30-34) % RDW (13.2-15.2) % Lymph % (Auto) (13.4-35.0) % [place] % (Auto) (0.0-7.3) % [place] # (0.0-0.8) K/mm3 Seg Neutrophils % (40.0-70.0) % Seg Neutrophils # (1.8-7.7) K/mm3 PT (12.2-14.9) Sec. INR (0.87-1.13) VBG pH (7.320-7.420) Sodium 128 L (137-145) mmol/L Potassium 5.5 H (3.6-5.0) mmol/L Chloride 84.4 L (98-107) mmol/L Carbon Dioxide 4 L* D (22-30) mmol/L BUN 52 H (7-17) mg/dL Creatinine 2.2 H (0.7-1.2) mg/dL Glucose 1124 H* (65-100) mg/dL Lactic Acid (0.7-2.0) mmol/L Phosphorus 8.20 H (2.5-4.5) mg/dL Magnesium 3.20 H (1.7-2.3) mg/dL Alkaline Phosphatase (35-129) units/L Ammonia (25-60) umol/L Salicylates (2.8-20.0) mg/dL Acetaminophen (10.0-30.0) ug/mL Assessment and Plan - Patient Problems (1) DKA (diabetic ketoacidoses) Current Visit: Yes Status: Acute Plan to address problem: Patient admitted into the intensive care unit and placed on IV fluid and insulin drip according to DKA protocol. Will monitor blood glucose closely. Will monitor hemoglobin A1c. We will place a consult to dietitian for diabetic education. (2) BRITTNEY (acute kidney injury) Current Visit: Yes Status: Acute Plan to address problem: Probably secondary to dehydration. We will place a consult to nephrology for evaluation and recommendation. (3) Dehydration Current Visit: Yes Status: Acute Plan to address problem: We will continue IV fluid hydration. Will monitor chemistry. (4) DVT prophylaxis Current Visit: Yes Status: Acute Plan to address problem: Patient placed on subcutaneous heparin. (5) Full code status Current Visit: Yes Status: Acute
[2020-02-12 23:46] LABS: Calcium 8.2 mg/dL (8.4-10.2)
[2020-02-12] MEDS ORDERED: D5W/0.45% NACL/KCL 20 MEQ 20 MEQ/1,000 ML BAG IV ONE (23:54)
[2020-02-13] MEDS: D5W/0.45% NACL/KCL 20 MEQ 20 MEQ/1,000 ML BAG IV SCH ×2 (00:03→10:58)
[2020-02-13 01:59] LABS: Calcium 8.3 mg/dL (8.4-10.2)
[2020-02-13] MEDS: SODIUM CHLORIDE 0.9% 1000 ML 1,000 ML IV SCH ×2 (02:00→08:47)
[2020-02-13] MEDS ORDERED: SODIUM BICARB 8.4% 50 MEQ/50 ML SYRINGE IV ONE (05:35)
[2020-02-13] MEDS: INSULIN REGULAR, HUMAN 100 UNITS in SODIUM CHLORIDE 0.9% 99 ML IV SCH ×2 (05:53→08:30)
[2020-02-13] MEDS: HEPARIN 5,000 UNIT/1 ML VIAL SUB-Q SCH ×2 (07:33→13:33)
[2020-02-13 07:55] LABS: Albumin 3.8 g/dL (3.9-5); Calcium 8.7 mg/dL (8.4-10.2)
[2020-02-13 08:37] LABS: Basophils % (Auto) 0.2 % (0.0-1.8); Eosinophils % (Auto) 0.2 % (0.0-4.3); Hemoglobin 9.4 gm/dl (10.1-14.3); Lymphocytes # (Auto) 1.1 K/mm3 (1.2-5.4); Lymphocytes % (Auto) 7.1 % (13.4-35.0); Mean Corpuscular HGB Conc 34 % (30-34); Mean Corpuscular Volume 96 fl (79-97); Monocytes # (Auto) 1.6 K/mm3 (0.0-0.8); Platelet Count 221 K/mm3 (140-440); Red Blood Count 2.91 M/mm3 (3.65-5.03)
[2020-02-13 08:47] LABS: INR 1.11 (0.87-1.13)
[2020-02-13] MEDS ORDERED: SODIUM BICARBONATE 50 MEQ in SODIUM CHLORIDE 0.9% 1000 ML 1,000 ML IV SCH (09:00)
[2020-02-13] MEDS ORDERED: FLU VACC QUAD 2019-20 (3 YR UP)/PF 60 MCG/0.5 ML SYRINGE IM ONE (12:00)
[2020-02-13] MEDS ORDERED: PNEUMOCOCCAL 23 Valent 0.5 ML VIAL IM ONE (12:00)
[2020-02-13] MEDS ORDERED: SODIUM CHLORIDE 0.9% 1000 ML 1,000 ML IV ONE ×3 (12:34→14:25)
--- NOTE | 2020-02-13 12:46 | Consultation ---
History of Present Illness Consult date: 02/13/20 Requesting physician: CLIFTON MURILLO Reason for consult: other (DKA) History of present illness: PULMONARY/CCM CONSULT NOTE (Full dictation # [id number]) Please see dictated notes for full details Past History Past Medical History: COPD, diabetes, hypertension, hyperlipidemia Past Surgical History: No surgical history, cholecystectomy Social history: smoking (Daily smoker) Family history: no significant family history Medications and Allergies Allergies Allergy/AdvReac Type Severity Reaction Status Date / Time No Known Allergies Allergy Unverified 12/08/14 16:58 Home Medications Medication Instructions Recorded Confirmed Last Taken Type Albuterol Sulfate [Ventolin HFA] 2 puff IH Q4H PRN #1 hfa.aer.ad 12/08/14 Unknown Rx Azithromycin [Zithromax Z-RAHUL] 250 mg PO DAILY #6 tablet 12/08/14 Unknown Rx Benzonatate [Tessalon Perles] 100 mg PO Q8HR #30 capsule 12/08/14 Unknown Rx Acetaminophen/Codeine [Tylenol #3] 1 tab PO Q6H PRN #12 tab 04/21/17 Unknown Rx Furosemide [Lasix] 20 mg PO QDAY #10 tablet 04/21/17 Unknown Rx Insulin Detemir (Nf) [Levemir 40 unit SQ QAM #1 insuln.pen 12/12/17 Unknown Rx Flextouch] Docusate Sodium [Colace] 100 mg PO BID PRN #20 capsule 03/17/18 Unknown Rx Ibuprofen [Motrin] 800 mg PO Q8HR PRN #30 tablet 03/17/18 Unknown Rx traMADoL [Ultram 50 MG tab] 50 mg PO Q6HR PRN #20 tablet 03/17/18 Unknown Rx Active Meds: Active Medications Dextrose (D50w (25gm) Syringe) 0 ml IV Q30MIN PRN; Protocol PRN Reason: Hypoglycemia Heparin Sodium (Porcine) (Heparin) 5,000 unit SUB-Q Q8HR IVANA Last Admin: 02/13/20 07:33 Dose: 5,000 unit Documented by: Insulin Human Regular 100 (units/ Sodium Chloride) 100 mls @ 1 mls/hr IV TITR IVANA; Protocol Last Titration: 02/13/20 12:00 Dose: 9 units/hr, 9 mls/hr Documented by: Potassium Chloride/Dextrose/Sod Cl (D5w/0.45% Nacl/Kcl 20 Meq) 20 meq in 1,000 mls @ 125 mls/hr IV DIRECT IVANA Last Admin: 02/13/20 10:58 Dose: 125 mls/hr Documented by: Sodium Bicarbonate 50 meq/ (Sodium Chloride) 1,050 mls @ 100 mls/hr IV DIRECT IVANA Last Admin: 02/13/20 09:16 Dose: 100 mls/hr Documented by: Sodium Chloride (Nacl 0.9% 1000 Ml) 1,000 mls @ 999 mls/hr IV BOLUS ONE Stop: 02/13/20 13:34 Sodium Chloride (Nacl 0.9% 1000 Ml) 1,000 mls @ 999 mls/hr IV BOLUS ONE Stop: 02/13/20 13:40 Ondansetron HCl (Zofran) 4 mg IV Q8H PRN PRN Reason: Nausea And Vomiting Sodium Chloride (Sodium Chloride Flush Syringe 10 Ml) 10 ml IV PRN PRN PRN Reason: LINE FLUSH Sodium Chloride (Sodium Chloride Flush Syringe 10 Ml) 10 ml IV BID IVANA Physical Examination Vital signs: Vital Signs Temp 97.8 F 02/12/20 20:10 Results - Laboratory Findings CBC and BMP: 02/13/20 08:27 02/13/20 Unknown PT/INR, D-dimer PT 14.1 Sec. (12.2-14.9) 02/13/20 08:27 INR 1.11 (0.87-1.13) 02/13/20 08:27 Abnormal lab findings: Abnormal Labs 02/12/20 02/12/20 02/12/20 20:32 20:32 20:32 WBC 16.9 H RBC 3.27 L Hgb Hct MCV 113 H MCHC 29 L RDW 15.6 H Lymph % (Auto) 7.4 L [place] % (Auto) 7.7 H Lymph # [place] # 1.3 H Seg Neutrophils % 84.2 H Seg Neutrophils # 14.2 H PT 15.3 H INR 1.24 H VBG pH Sodium 128 L Potassium 5.7 H Chloride 83.9 L Carbon Dioxide 11 L BUN 51 H Creatinine 2.1 H Glucose 1043 H* POC Glucose Hemoglobin A1c Lactic Acid Calcium Phosphorus Magnesium Alkaline Phosphatase 159 H Ammonia Total Protein Albumin Salicylates Acetaminophen 02/12/20 02/12/20 02/12/20 20:32 20:32 20:32 WBC RBC Hgb Hct MCV MCHC RDW Lymph % (Auto) [place] % (Auto) Lymph # [place] # Seg Neutrophils % Seg Neutrophils # PT INR VBG pH Sodium Potassium Chloride Carbon Dioxide BUN Creatinine Glucose POC Glucose Hemoglobin A1c Lactic Acid 4.30 H* Calcium Phosphorus Magnesium Alkaline Phosphatase Ammonia 62.0 H Total Protein Albumin Salicylates < 0.3 L Acetaminophen 02/12/20 02/12/20 02/12/20 20:32 20:32 20:32 WBC RBC Hgb Hct MCV MCHC RDW Lymph % (Auto) [place] % (Auto) Lymph # [place] # Seg Neutrophils % Seg Neutrophils # PT INR VBG pH 7.076 L* Sodium Potassium Chloride Carbon Dioxide BUN Creatinine Glucose POC Glucose Hemoglobin A1c Lactic Acid Calcium Phosphorus Magnesium 3.10 H Alkaline Phosphatase Ammonia Total Protein Albumin Salicylates Acetaminophen < 5.0 L 02/12/20 02/12/20 02/12/20 21:38 21:38 23:05 WBC RBC Hgb Hct MCV MCHC RDW Lymph % (Auto) [place] % (Auto) Lymph # [place] # Seg Neutrophils % Seg Neutrophils # PT INR VBG pH Sodium 128 L Potassium 5.5 H Chloride 84.4 L Carbon Dioxide 4 L* D BUN 52 H Creatinine 2.2 H Glucose 1124 H* POC Glucose Hemoglobin A1c Lactic Acid 3.30 H* Calcium Phosphorus 8.20 H Magnesium 3.20 H Alkaline Phosphatase Ammonia Total Protein Albumin Salicylates Acetaminophen 02/12/20 02/12/20 02/12/20 23:05 23:05 23:05 WBC RBC Hgb Hct MCV MCHC RDW Lymph % (Auto) [place] % (Auto) Lymph # [place] # Seg Neutrophils % Seg Neutrophils # PT INR VBG pH Sodium 132 L Potassium Chloride 92.7 L Carbon Dioxide 3 L* BUN 51 H Creatinine 2.0 H Glucose 967 H* POC Glucose Hemoglobin A1c 10.5 H Lactic Acid Calcium 8.2 L Phosphorus 6.30 H D Magnesium 2.70 H Alkaline Phosphatase Ammonia Total Protein Albumin Salicylates Acetaminophen 02/12/20 02/13/20 02/13/20 23:57 01:12 01:24 WBC RBC Hgb Hct MCV MCHC RDW Lymph % (Auto) [place] % (Auto) Lymph # [place] # Seg Neutrophils % Seg Neutrophils # PT INR VBG pH Sodium 135 L Potassium Chloride 96.2 L Carbon Dioxide 4 L* BUN 50 H Creatinine 2.0 H Glucose 845 H* POC Glucose > 500 H > 500 H Hemoglobin A1c Lactic Acid Calcium 8.3 L Phosphorus Magnesium Alkaline Phosphatase Ammonia Total Protein Albumin Salicylates Acetaminophen 02/13/20 02/13/20 02/13/20 02:25 03:30 04:50 WBC RBC Hgb Hct MCV MCHC RDW Lymph % (Auto) [place] % (Auto) Lymph # [place] # Seg Neutrophils % Seg Neutrophils # PT INR VBG pH Sodium Potassium Chloride Carbon Dioxide BUN Creatinine Glucose POC Glucose > 500 H > 500 H > 500 H Hemoglobin A1c Lactic Acid Calcium Phosphorus Magnesium Alkaline Phosphatase Ammonia Total Protein Albumin Salicylates Acetaminophen 02/13/20 02/13/20 02/13/20 05:19 06:14 06:14 WBC RBC Hgb Hct MCV MCHC RDW Lymph % (Auto) [place] % (Auto) Lymph # [place] # Seg Neutrophils % Seg Neutrophils # PT INR VBG pH Sodium Potassium Chloride Carbon Dioxide 9 L* BUN 47 H Creatinine 2.1 H Glucose 570 H* 569 H* POC Glucose > 500 H Hemoglobin A1c Lactic Acid Calcium Phosphorus Magnesium Alkaline Phosphatase 135 H Ammonia Total Protein 5.8 L Albumin 3.8 L Salicylates Acetaminophen 02/13/20 02/13/20 02/13/20 06:39 07:40 08:27 WBC RBC Hgb Hct MCV MCHC RDW Lymph % (Auto) [place] % (Auto) Lymph # [place] # Seg Neutrophils % Seg Neutrophils # PT INR VBG pH Sodium Potassium Chloride Carbon Dioxide BUN Creatinine Glucose POC Glucose > 500 H 467 H Hemoglobin A1c Lactic Acid 2.80 H* Calcium Phosphorus Magnesium Alkaline Phosphatase Ammonia Total Protein Albumin Salicylates Acetaminophen 02/13/20 02/13/20 02/13/20 08:27 08:49 09:37 WBC 15.9 H RBC 2.91 L Hgb 9.4 L Hct 28.0 L D MCV MCHC RDW Lymph % (Auto) 7.1 L [place] % (Auto) 10.0 H Lymph # 1.1 L [place] # 1.6 H Seg Neutrophils % 82.5 H Seg Neutrophils # 13.1 H PT INR VBG pH Sodium Potassium Chloride Carbon Dioxide BUN Creatinine Glucose POC Glucose 324 H 270 H Hemoglobin A1c Lactic Acid Calcium Phosphorus Magnesium Alkaline Phosphatase Ammonia Total Protein Albumin Salicylates Acetaminophen 02/13/20 02/13/20 02/13/20 11:00 11:39 12:17 WBC RBC Hgb Hct MCV MCHC RDW Lymph % (Auto) [place] % (Auto) Lymph # [place] # Seg Neutrophils % Seg Neutrophils # PT INR VBG pH Sodium Potassium Chloride Carbon Dioxide BUN Creatinine Glucose POC Glucose 141 H 142 H Hemoglobin A1c Lactic Acid 3.70 H* Calcium Phosphorus Magnesium Alkaline Phosphatase Ammonia Total Protein Albumin Salicylates Acetaminophen
[2020-02-13 13:37] LABS: Calcium 8.8 mg/dL (8.4-10.2)
[2020-02-13] MEDS ORDERED: dilTIAZem 25 MG/5 ML INJ IV STA (14:25)
--- NOTE | 2020-02-13 14:37 | Consultation ---
PULMONARY CRITICAL CARE CONSULT NOTE CONSULTING PHYSICIAN: Paul Lawrence M.D. REASON FOR CONSULTATION: Diabetic ketoacidosis. CHIEF COMPLAINT AND HISTORY OF PRESENT ILLNESS: The patient is a 69-year-old -Citizen Of [place] female with past medical history significant amongst other things for a diagnosis of diabetes as well as chronic obstructive lung disease. Emergency Medical Services were called secondary to the patient's developing an acute weakness, acute encephalopathy, nausea, vomiting and she was hyperglycemic. In the ER, she was confused. She had shortness of breath. She had increased work of breathing. She had denied any urinary pain or dysuria. Denied fevers or chills, but really was unable to tell much of the history. Evaluation was consistent with a diagnosis of diabetic ketoacidosis. ICU admission was requested for IV insulin management. When I stopped by to see her, she was resting in bed, still pretty somnolent, still confused, unable to give us a phone number or really understand where she was. I do not have any history of fevers or chills. I do not have any history of vomiting or overt aspiration. The above is as much of the history of presentation as I have. It is unclear if she was on any medications or not at home. PAST MEDICAL HISTORY: Again, significant for diabetes, COPD, hyperlipidemia, hypertension. PAST SURGICAL HISTORY: She has had a cholecystectomy. MEDICATIONS: She was on at the time I stopped by to see were reviewed. Pertinent medications include the following: Heparin 5000 units subcutaneous q. 8 hours, insulin drip was going at 9 units per hour, Zofran 4 mg IV q. 8 hours p.r.n. nausea and vomiting. She was on a D5 half NS drip with 20 of KCl per liter at 125 mL per hour. She had received some sodium bicarbonate supplementation earlier. She received Rocephin 2 grams IV in the Emergency Room. ALLERGIES: No known drug allergies. DIET: Well-built lady and acute weight loss or gain, the history is unknown. FAMILY AND SOCIAL HISTORY: As far as I can tell, she lived in the community. She is described as a current every day smoker, unable to quantify how much. Alcohol, illicit drug use or abuse, other family history is unknown. REVIEW OF SYSTEMS: Unobtainable secondary to the patient's medical and mental condition. Since she has been here, no gross hematochezia or melena. No gross hematuria or dysuria. No hematemesis. No hemoptysis. No witnessed seizures. Review of systems otherwise unobtainable or as in body of history above. PHYSICAL EXAMINATION: VITAL SIGNS: At presentation, she was afebrile, temperature 97.8 degrees Fahrenheit, pulse of 100, respiratory rate of 18, blood pressure 150/51, O2 sats were 100%, inspired oxygen concentration at that time was not recorded. When I stopped by to see her, her O2 sats were 99% on room air. GENERAL: She is an elderly looking -Citizen Of [place] female, normocephalic, atraumatic, talking to me in full sentences with mildly increased respiratory effort at rest. HEAD, EYES, EARS, NOSE AND THROAT: She is anicteric. No conjunctival erythema. Oropharynx was dry. Mallampati #2 oropharynx. No gross jugular venous distention, no thyromegaly. NECK: Grossly, there were no palpable lymph nodes in the supraclavicular or submandibular lymph node chains. LUNGS: Auscultation of both lung nava was unremarkable. Lungs were clear bilaterally with good bilateral air movement. HEART: Sounds 1 and 2 were heard, regular rate and rhythm at the time of my evaluation without overt rubs or murmurs. ABDOMEN: Soft, full, bowel sounds were positive. She had mild tenderness in the right upper quadrant region. No palpable hepatosplenomegaly. EXTREMITIES: Without overt digital clubbing or cyanosis. No pedal edema. Pedal pulses were 2+ bilaterally. NEUROLOGIC: Pupils were equal, round, about 3 mm, reactive to light. Extraocular muscle movements were intact. She moved all 4 extremities spontaneously. She was a little bit confused, a poor historian. SKIN: Without overt cellulitis or rash in the areas of the skin I examined. Please see the wound care nurse's notes for full description of her skin. PSYCHIATRIC: Her mood and affect were flat. LABORATORY DATA: From my review are as follows: Admission white cell count 16,900, hemoglobin 10.5, hematocrit 36.8, platelet count 260. No manual differential. INR was 1.24. Her venous blood gas showed a pH of 7.08. Serum sodium on presentation 132, potassium 4.0, chloride 93, bicarbonate was 3, BUN was 51, creatinine was 2.0, glucose was 967. Lactic acid level was 3.3. Phosphorus and magnesium were elevated. Ammonia was up at 62, otherwise liver function tests within normal limits. TSH within normal limits. Urinalysis was negative for nitrites and leukocyte esterase. She did have 2+ bacteria. Aspirin, Tylenol, alcohol levels were within normal limits. Most recent labs, potassium 3.2, anion gap is down to 18. Lactic acid is still 3.9, BUN 42, creatinine 1.8. Two sets of blood cultures, no growth to date. Chest x-ray was done. I have reviewed the chest x-ray as well as the radiologist's interpretation. I do agree to a nonacute chest x-ray, no focal infiltrates, no acute process. A CT scan of the abdomen and pelvis was done. I have reviewed the results, hepatic steatosis, otherwise no significant abnormality. She did have osteonecrosis with subchondral collapse of the right femoral head. A CT scan of her head was also done, it was read as no acute intracranial abnormality. ASSESSMENT: 1. Diabetic ketoacidosis. 2. Severe metabolic acidosis. 3. Leukocytosis. 4. Acute kidney injury. 5. Elevated lactic acid levels. 6. Acute encephalopathy. 7. Hyperammonemia. 8. History of hypertension. 9. History of chronic obstructive pulmonary disease. 10. History of hyperlipidemia. PLAN: We will continue the DKA protocol as well as volume resuscitation. This lactic acidosis is probably related to an element of intravascular volume depletion. We will continue per the DKA protocol. She did receive one dose of Rocephin. I will get a CRP level and a procalcitonin level. Follow her clinically off antibiotics at this time and see if the results of this test will assist with clinical decision making. Oxygen will be weaned as necessary or instituted as necessary to keep O2 sats greater than or equal to 92%. Aspiration precautions will be maintained. She will remain n.p.o. for now. She is appropriately on DVT prophylaxis. I will put her on GI prophylaxis with IV Pepcid. Flu and pneumonia vaccination will be addressed per protocol. Once she is more appropriate, counseling will be given for tobacco abstinence as well as diabetic education and we will get more history. Thank you very much for the consult, Dr. Lawrence. We will follow along and make further recommendations as picture progresses/becomes clearer. She is critically ill on life-sustaining interventions including the IV insulin therapy, at high risk of from endocrine system decompensation. At this time, I spent about 35-40 minutes of critical care time without overlap and excluding any procedural time that may be necessary. JOB# [id number] EAMON/JAKE
--- NOTE | 2020-02-13 14:56 | Consultation ---
History of Present Illness Consult date: 02/13/20 Requesting physician: JUDAH PERDUE Consult reason: atrial fibrillation History of present illness: The pt is a 69-year-old -Irish female with a past medical history of COPD and diabetes mellitus. She is lethargic on evaluation and is a rather poor historian and thus HPI is obtained per the chart. Pt was brought in by EMS yesterday after they were called because patient was having weakness, confusion, nausea and vomiting and elevated blood sugar. Following arrival, pt diagnosed with DKA and was initiated on insulin gtt. Today, she was noted to develop new onset AFib with RVR and thus cardiology has been consulted. On evaluation, pt is resting comfortably with NAD, she denies any cardiac complaints or known prior cardiac issues. She is noted to be in AFib RVR with HR 130s - 160s. Past History Past Medical History: COPD, diabetes, hypertension, hyperlipidemia Past Surgical History: No surgical history, cholecystectomy Social history: smoking (Daily smoker) Family history: no significant family history Medications and Allergies Allergies Allergy/AdvReac Type Severity Reaction Status Date / Time No Known Allergies Allergy Unverified 12/08/14 16:58 Home Medications Medication Instructions Recorded Confirmed Last Taken Type Albuterol Sulfate [Ventolin HFA] 2 puff IH Q4H PRN #1 hfa.aer.ad 12/08/14 Unknown Rx Azithromycin [Zithromax Z-RAHUL] 250 mg PO DAILY #6 tablet 12/08/14 Unknown Rx Benzonatate [Tessalon Perles] 100 mg PO Q8HR #30 capsule 12/08/14 Unknown Rx Acetaminophen/Codeine [Tylenol #3] 1 tab PO Q6H PRN #12 tab 04/21/17 Unknown Rx Furosemide [Lasix] 20 mg PO QDAY #10 tablet 04/21/17 Unknown Rx Insulin Detemir (Nf) [Levemir 40 unit SQ QAM #1 insuln.pen 12/12/17 Unknown Rx Flextouch] Docusate Sodium [Colace] 100 mg PO BID PRN #20 capsule 03/17/18 Unknown Rx Ibuprofen [Motrin] 800 mg PO Q8HR PRN #30 tablet 03/17/18 Unknown Rx traMADoL [Ultram 50 MG tab] 50 mg PO Q6HR PRN #20 tablet 03/17/18 Unknown Rx Active Meds: Active Medications Dextrose (D50w (25gm) Syringe) 0 ml IV Q30MIN PRN; Protocol PRN Reason: Hypoglycemia Last Admin: 02/13/20 14:35 Dose: 50 ml Documented by: Famotidine (Pepcid) 20 mg IV QDAY IVANA Heparin Sodium (Porcine) (Heparin) 5,000 unit SUB-Q Q8HR IVANA Last Admin: 02/13/20 13:33 Dose: 5,000 unit Documented by: Insulin Human Regular 100 (units/ Sodium Chloride) 100 mls @ 1 mls/hr IV TITR IVANA; Protocol Last Titration: 02/13/20 13:10 Dose: 0 units/hr, 0 mls/hr Documented by: Potassium Chloride/Dextrose/Sod Cl (D5w/0.45% Nacl/Kcl 20 Meq) 20 meq in 1,000 mls @ 125 mls/hr IV DIRECT IVANA Last Admin: 02/13/20 10:58 Dose: 125 mls/hr Documented by: Sodium Bicarbonate 50 meq/ (Sodium Chloride) 1,050 mls @ 100 mls/hr IV DIRECT IVANA Last Admin: 02/13/20 09:16 Dose: 100 mls/hr Documented by: Sodium Chloride (Nacl 0.9% 1000 Ml) 1,000 mls @ 999 mls/hr IV BOLUS ONE Stop: 02/13/20 15:25 Diltiazem HCl (Cardizem/D5w 100mg/100ml) 100 mg in 100 mls @ 5 mls/hr IV TITR IVANA; Protocol Ondansetron HCl (Zofran) 4 mg IV Q8H PRN PRN Reason: Nausea And Vomiting Sodium Chloride (Sodium Chloride Flush Syringe 10 Ml) 10 ml IV PRN PRN PRN Reason: LINE FLUSH Sodium Chloride (Sodium Chloride Flush Syringe 10 Ml) 10 ml IV BID IVANA Review of Systems Cardiovascular: no chest pain, no palpitations, no rapid/irregular heart beat, no shortness of breath, no dyspnea on exertion Physical Examination Vital Signs Temp 97.8 F 02/12/20 20:10 General appearance: no acute distress, other (lethargic) HEENT: Positive: PERRL Neck: Positive: neck supple, trachea midline Cardiac: Positive: irregularly irregular, S1/S2, Tachycardia Lungs: Positive: Decreased Breath Sounds Neuro: Positive: Other (lethargic) Abdomen: Negative: Tender Skin: Negative: Rash Musculoskeletal: No Pain Extremities: Absent: edema Results 02/13/20 08:27 02/13/20 Unknown Cardiac Enzymes 02/12/20 02/13/20 Range/Units 20:32 06:14 AST 19 24 (5-40) units/L Coagulation 02/12/20 02/13/20 Range/Units 20:32 08:27 PT 15.3 H 14.1 (12.2-14.9) Sec. INR 1.24 H 1.11 (0.87-1.13) APTT 27.0 (24.2-36.6) Sec. CBC 02/12/20 02/13/20 Range/Units 20:32 08:27 WBC 16.9 H 15.9 H (4.5-11.0) K/mm3 RBC 3.27 L 2.91 L (3.65-5.03) M/mm3 Hgb 10.5 9.4 L (10.1-14.3) gm/dl Hct 36.8 28.0 L D (30.3-42.9) % Plt Count 260 221 (140-440) K/mm3 Lymph # 1.2 1.1 L (1.2-5.4) K/mm3 [place] # 1.3 H 1.6 H (0.0-0.8) K/mm3 Eos # 0.0 0.0 (0.0-0.4) K/mm3 Baso # 0.1 0.0 (0.0-0.1) K/mm3 Comprehensive Metabolic Panel 02/12/20 02/12/20 02/12/20 Range/Units 20:32 21:38 23:05 Sodium 128 L 128 L 132 L (137-145) mmol/L Potassium 5.7 H 5.5 H 4.0 D (3.6-5.0) mmol/L Chloride 83.9 L 84.4 L 92.7 L (98-107) mmol/L Carbon Dioxide 11 L 4 L* D 3 L* (22-30) mmol/L BUN 51 H 52 H 51 H (7-17) mg/dL Creatinine 2.1 H 2.2 H 2.0 H (0.7-1.2) mg/dL Glucose 1043 H* 1124 H* 967 H* (65-100) mg/dL Calcium 9.4 9.1 8.2 L (8.4-10.2) mg/dL AST 19 (5-40) units/L ALT 25 (7-56) units/L Alkaline Phosphatase 159 H (35-129) units/L Total Protein 7.1 (6.3-8.2) g/dL Albumin 3.9 (3.9-5) g/dL 02/13/20 02/13/20 02/13/20 Range/Units 01:24 06:14 06:14 Sodium 135 L 137 (137-145) mmol/L Potassium 4.4 3.7 (3.6-5.0) mmol/L Chloride 96.2 L 102.2 (98-107) mmol/L Carbon Dioxide 4 L* 9 L* (22-30) mmol/L BUN 50 H 47 H (7-17) mg/dL Creatinine 2.0 H 2.1 H (0.7-1.2) mg/dL Glucose 845 H* 570 H* 569 H* (65-100) mg/dL Calcium 8.3 L 8.7 (8.4-10.2) mg/dL AST 24 (5-40) units/L ALT 23 (7-56) units/L Alkaline Phosphatase 135 H (35-129) units/L Total Protein 5.8 L (6.3-8.2) g/dL Albumin 3.8 L (3.9-5) g/dL 02/13/20 Range/Units Unknown Sodium 145 D (137-145) mmol/L Potassium 3.2 L (3.6-5.0) mmol/L Chloride 111.1 H (98-107) mmol/L Carbon Dioxide 19 L D (22-30) mmol/L BUN 42 H (7-17) mg/dL Creatinine 1.8 H (0.7-1.2) mg/dL Glucose 97 (65-100) mg/dL Calcium 8.8 (8.4-10.2) mg/dL AST (5-40) units/L ALT (7-56) units/L Alkaline Phosphatase (35-129) units/L Total Protein (6.3-8.2) g/dL Albumin (3.9-5) g/dL - Imaging and Cardiology EKG: report reviewed, image reviewed EKG interpretations - Telemetry EKG Rhythm: Atrial Fibrillation - EKG Supraventricular dysrhythmia: atrial fibrillation Assessment and Plan Agree with IV cardizem bolus and gtt. Initiate heparin gtt and consider conve rsion to OAC prior to hospital discharge. Obtain echo. Management of DKA per primary/critical care team. Further recs to follow per hospital course. Will follow. The patient has been seen in conjunction with Dr. Garcia who agrees with the assessment and plan of care. - Patient Problems (1) Atrial fibrillation with RVR Current Visit: Yes Status: Acute Plan to address problem: new onset (2) DKA (diabetic ketoacidoses) Current Visit: Yes Status: Acute (3) BRITTNEY (acute kidney injury) Current Visit: Yes Status: Acute (4) Anemia Current Visit: Yes Status: Acute (5) COPD (chronic obstructive pulmonary disease) Current Visit: Yes Status: Chronic
[2020-02-13] MEDS ORDERED: dilTIAZem/D5W 100 MG/100 ML BAG IV SCH (15:00)
[2020-02-13] MEDS: POTASSIUM CHLORIDE ER 20 MEQ TAB PO SCH ×2 (15:43→21:53)
[2020-02-13] MEDS: HEPARIN/ 0.45% NACL DRIP 25,000 UNIT/500 ML BAG IV SCH (15:52)
[2020-02-13] MEDS ORDERED: HEPARIN 10,000 UNITS/10 ML VIAL IV ONE (16:00)
--- NOTE | 2020-02-13 16:31 | Progress Note ---
Assessment and Plan Assessment and plan: 69-year-old -[place] female with known history of COPD and diabetes mellitus brought in by EMS today after they were called because patient was having weakness, confusion, nausea and vomiting and elevated blood sugar. Patient unable to give a very good history as she is confused and most of the history was gotten from the emergency room physician. However patient was able to state that she was feeling very weak and having some abdominal pain. She denies any headache, no chest pain or shortness of breath but has been having some nausea and vomiting. Denies any diarrhea. Denies any hematuria or dysuria. Work-up in the emergency room reveals blood glucose greater than 1000 and patient was apparently in DKA. She was started on IV fluid and also placed on insulin drip. DKA BRITNTEY with vasomotor nephropathy AFib with RVR COPD Dehydration Leukocytosis Anemia Hypotension Plan Continue ICU care Adjust insulin per protocol Cardiology consulted Patient noted with episodic Hypotension, address Replace electrolytes DVT/GI prophy CCT 35 MINS History Interval history: Patient seen and examined, appears dehydrated, later in the day she developed Si nus tachycardia but was asymptomatic, cardiology consulted Hospitalist Physical - Physical exam Narrative exam: General appearance: Present: mild distress, well-nourished - EENT Eyes: Present: PERRL, EOM intact ENT: hearing intact, clear oral mucosa, dentition normal - Neck Neck: Present: supple, normal ROM - Respiratory Respiratory effort: normal Respiratory: bilateral: CTA - Cardiovascular Rhythm: regular Heart Sounds: Present: S1 & S2 - Extremities Extremities: no ischemia, pulses intact, pulses symmetrical, No edema, Full ROM Peripheral Pulses: within normal limits - Abdominal General gastrointestinal: Present: soft, non-tender, non-distended, normal bowel sounds - Integumentary Integumentary: Present: clear, warm, dry - Musculoskeletal Musculoskeletal: generalized weakness - Psychiatric Psychiatric: cooperative, other - Neurologic Neurologic: CNII-XII intact, moves all extremities - Constitutional Vitals: Temp Pulse Resp BP Pulse Ox 98.4 F 128 H 13 119/62 100 02/13/20 12:00 02/13/20 14:58 02/13/20 10:00 02/13/20 14:58 02/13/20 10:00 General appearance: Present: no acute distress, other (lethargic) Results - Labs CBC & Chem 7: 02/14/20 04:29 02/14/20 04:29 Labs: Laboratory Last Values WBC 15.9 K/mm3 (4.5-11.0) H 02/13/20 08:27 RBC 2.91 M/mm3 (3.65-5.03) L 02/13/20 08:27 Hgb 9.4 gm/dl (10.1-14.3) L 02/13/20 08:27 Hct 28.0 % (30.3-42.9) L D 02/13/20 08:27 MCV 96 fl (79-97) 02/13/20 08: MCH 32 pg (28-32) 02/13/20 08: MCHC 34 % (30-34) 02/13/20 08: RDW 14.0 % (13.2-15.2) 02/13/20 08: Plt Count 221 K/mm3 (140-440) 02/13/20 08:27 Lymph % (Auto) 7.1 % (13.4-35.0) L 02/13/20 08:27 [place] % (Auto) 10.0 % (0.0-7.3) H 02/13/20 08:27 Eos % (Auto) 0.2 % (0.0-4.3) 02/13/20 08: Baso % (Auto) 0.2 % (0.0-1.8) 02/13/20 08:27 Lymph # 1.1 K/mm3 (1.2-5.4) L 02/13/20 08:27 [place] # 1.6 K/mm3 (0.0-0.8) H 02/13/20 08:27 Eos # 0.0 K/mm3 (0.0-0.4) 02/13/20 08:27 Baso # 0.0 K/mm3 (0.0-0.1) 02/13/20 08:27 Seg Neutrophils % 82.5 % (40.0-70.0) H 02/13/20 08: Seg Neutrophils # 13.1 K/mm3 (1.8-7.7) H 02/13/20 08:27 PT 14.1 Sec. (12.2-14.9) 02/13/20 08:27 INR 1.11 (0.87-1.13) 02/13/20 08:27 APTT 27.0 Sec. (24.2-36.6) 02/12/20 20:32 VBG pH 7.076 (7.320-7.420) L* 02/12/20 20:32 Sodium 145 mmol/L (137-145) D 02/13/20 Unknown Potassium 3.2 mmol/L (3.6-5.0) L 02/13/20 Unknown Chloride 111.1 mmol/L (98-107) H 02/13/20 Unknown Carbon Dioxide 19 mmol/L (22-30) L D 02/13/20 Unknown Anion Gap 18 mmol/L 02/13/20 Unknown BUN 42 mg/dL (7-17) H 02/13/20 Unknown Creatinine 1.8 mg/dL (0.7-1.2) H 02/13/20 Unknown Estimated GFR 34 ml/min 02/13/20 Unknown BUN/Creatinine Ratio 23 % 02/13/20 Unknown Glucose 97 mg/dL (65-100) 02/13/20 Unknown POC Glucose 131 (70-105) H 02/13/20 15:21 Hemoglobin A1c 10.5 % (4-6) H 02/12/20 23:05 Lactic Acid 3.90 mmol/L (0.7-2.0) H* 02/13/20 12:41 Calcium 8.8 mg/dL (8.4-10.2) 02/13/20 Unknown Phosphorus 6.30 mg/dL (2.5-4.5) H D 02/12/20 23:05 Magnesium 2.70 mg/dL (1.7-2.3) H 02/12/20 23:05 Total Bilirubin 0.20 mg/dL (0.1-1.2) 02/13/20 06:14 AST 24 units/L (5-40) 02/13/20 06:14 ALT 23 units/L (7-56) 02/13/20 06:14 Alkaline Phosphatase 135 units/L (35-129) H 02/13/20 06:14 Ammonia 62.0 umol/L (25-60) H 02/12/20 20:32 Total Creatine Kinase 132 units/L (30-135) 02/12/20 20:32 Total Protein 5.8 g/dL (6.3-8.2) L 02/13/20 06:14 Albumin 3.8 g/dL (3.9-5) L 02/13/20 06:14 Albumin/Globulin Ratio 1.9 % 02/13/20 06:14 TSH 0.485 mlU/mL (0.270-4.200) 02/12/20 20:32 Urine Color Straw (Yellow) 02/12/20 21:10 Urine Turbidity Slightly-cloudy (Clear) 02/12/20 21:10 Urine pH 5.0 (5.0-7.0) 02/12/20 21:10 Ur Specific [place] 1.018 (1.003-1.030) 02/12/20 21:10 Urine Protein <15 mg/dl mg/dL (Negative) 02/12/20 21:10 Urine Glucose (UA) >=500 mg/dL (Negative) 02/12/20 21:10 Urine Ketones 20 mg/dL (Negative) 02/12/20 21:10 Urine Blood Sm (Negative) 02/12/20 21:10 Urine Nitrite Neg (Negative) 02/12/20 21:10 Urine Bilirubin Neg (Negative) 02/12/20 21:10 Urine Urobilinogen < 2.0 mg/dL (<2.0) 02/12/20 21:10 Ur Leukocyte Esterase Neg (Negative) 02/12/20 21:10 Urine WBC (Auto) 1.0 /HPF (0.0-6.0) 02/12/20 21:10 Urine RBC (Auto) 1.0 /HPF (0.0-6.0) 02/12/20 21:10 U Epithel Cells (Auto) < 1.0 /HPF (0-13.0) 02/12/20 21:10 Urine Bacteria (Auto) 2+ /HPF (Negative) 02/12/20 21:10 Urine Mucus Few /HPF 02/12/20 21:10 Salicylates < 0.3 mg/dL (2.8-20.0) L 02/12/20 20:32 Acetaminophen < 5.0 ug/mL (10.0-30.0) L 02/12/20 20:32 Plasma/Serum Alcohol < 0.01 % (0-0.07) 02/12/20 20:32 Microbiology: Microbiology 02/12/20 20:44 Peripheral/Venous Blood Culture - Preliminary Culture in Progress 02/12/20 20:32 Peripheral/Venous Blood Culture - Preliminary Culture in Progress Montero/IV: IV Catheter Type [Left Peripheral IV Antecubital] IV Catheter Type [Left Wrist] INT / Saline Lock Active Medications - Current Medications Current Medications: Generic Name Dose Route Start Last Admin Trade Name Freq PRN Reason Stop Dose Admin Dextrose 0 ml 02/12/20 21:33 02/13/20 14:35 D50w (25gm) Syringe IV 50 ml Q30MIN PRN Administration Hypoglycemia Protocol Famotidine 20 mg 02/14/20 10:00 Pepcid IV QDAY IVANA Insulin Human Regular 100 100 mls @ 1 mls/hr 02/12/20 22:00 02/13/20 13:10 units/ Sodium Chloride IV 0 units/hr TITR IVANA 0 mls/hr Titration Protocol 1 UNITS/HR Potassium Chloride/Dextrose/Sod Cl 20 meq in 1,000 mls @ 125 mls/hr 02/12/20 22:00 02/13/20 10:58 D5w/0.45% Nacl/Kcl 20 Meq IV 125 mls/hr DIRECT IVANA Administration Sodium Bicarbonate 50 meq/ 1,050 mls @ 100 mls/hr 02/13/20 09:00 02/13/20 09:16 Sodium Chloride IV 100 mls/hr DIRECT IVANA Administration Diltiazem HCl 100 mg in 100 mls @ 5 mls/hr 02/13/20 15:00 02/13/20 16:05 Cardizem/D5w 100mg/100ml IV 5 mg/hr TITR IVANA 5 mls/hr Titration Protocol 5 MG/HR Heparin Sodium/Sodium Chloride 25,000 unit in 500 mls @ 23 mls/hr 02/13/20 16:00 02/13/20 15:52 Heparin/ 0.45% Nacl-25,000 Unit/500 Ml IV 1,150 units/hr TITR IVANA 23 mls/hr Administration Protocol 1,150 UNITS/HR Ondansetron HCl 4 mg 02/12/20 22:43 Zofran IV Q8H PRN Nausea And Vomiting Potassium Chloride 40 meq 02/13/20 16:00 02/13/20 15:43 K-Dur PO 02/13/20 20:01 40 meq Q4H IVANA Administration Sodium Chloride 10 ml 02/12/20 22:00 Sodium Chloride Flush Syringe 10 Ml IV PRN PRN LINE FLUSH Sodium Chloride 10 ml 02/13/20 10:00 Sodium Chloride Flush Syringe 10 Ml IV BID IVANA Nutrition/Malnutrition Assess - Dietary Evaluation Nutrition/Malnutrition Findings: Nutrition Notes Start: 02/13/20 11:36 Freq: Status: Active Protocol: Document 02/13/20 11:36 LM (Rec: 02/13/20 11:39 LM [email or web address]) Nutrition Notes Need for Assessment generated from: MD Order Initial or Follow up Brief Note Current Diagnosis Acute Kidney Injury,COPD, Diabetes,Hypertension, Hyperlipidemia Other Pertinent Diagnosis DKA, dehydration Current Diet NPO Labs/Tests BG 570 BUN 47 Cr 2.1 Pertinent Medications Insulin NaCl at 150ml/hr KCl/D5w/NaCl at 125ml/hr Height 5 ft 11 in Weight 76.2 kg [place] Body Weight (kg) 70.45 BMI 23.4 Weight Status Appropriate Subjective/Other Information MD consult for diet education and RN screen for MST. Unable to reach pt. Per RN notes pt is lethargic. Nutrition Intervention Follow-Up By: 02/14/20 Additional Comments F/U for diet education/ assessment
[2020-02-13] MEDS ORDERED: AMIODARONE 150 MG in DEXTROSE 5% IN WATER 100 ML IV ONE (16:54)
[2020-02-13] MEDS ORDERED: AMIODARONE 900 MG in DEXTROSE 5% IN WATER 482 ML IV SCH (17:00)
[2020-02-13] MEDS ORDERED: INSULIN REGULAR, HUMAN 100 UNITS/1 ML SUB-Q ONE (17:07)
[2020-02-13] MEDS ORDERED: INSULIN LISPRO 100 UNIT/ML SUB-Q ONE (18:23)
[2020-02-13] MEDS: INSULIN LISPRO 100 UNIT/ML SUB-Q SCH ×2 (18:25→21:53)
[2020-02-13 19:49] LABS: Hematocrit 28.6 % (30.3-42.9); Hemoglobin 9.6 gm/dl (10.1-14.3)
[2020-02-13 20:01] LABS: INR 1.21 (0.87-1.13)
[2020-02-13 20:11] LABS: Calcium 7.8 mg/dL (8.4-10.2)
[2020-02-13 20:15] LABS: Partial Thromboplastin Time 225.2 Sec. (24.2-36.6)
[2020-02-14 06:31] LABS: Hematocrit 27.6 % (30.3-42.9); Hemoglobin 9.4 gm/dl (10.1-14.3); Mean Corpuscular HGB Conc 34 % (30-34); Mean Corpuscular Volume 97 fl (79-97); Platelet Count 185 K/mm3 (140-440); Red Blood Count 2.83 M/mm3 (3.65-5.03); Red Cell Distribution Width 14.9 % (13.2-15.2)
[2020-02-14 06:51] LABS: Calcium 8.3 mg/dL (8.4-10.2)
[2020-02-14] MEDS ORDERED: SODIUM CHLORIDE 0.9% 1000 ML 1,000 ML IV ONE (07:45)
[2020-02-14] MEDS ORDERED: SODIUM POLYSTYRENE 15 GM/60 ML ORAL LIQD PO ONE (08:00)
[2020-02-14] MEDS ORDERED: SODIUM BICARBONATE 50 MEQ in SODIUM CHLORIDE 0.9% 1000 ML 1,000 ML IV SCH (08:00)
[2020-02-14] MEDS: INSULIN LISPRO 100 UNIT/ML SUB-Q SCH ×2 (08:48→12:45)
[2020-02-14] MEDS: FAMOTIDINE 20 MG/2 ML INJ IV SCH (09:02)
--- NOTE | 2020-02-14 09:24 | Progress Note ---
Assessment and Plan Assessment and plan: 69-year-old -[place] female with known history of COPD and diabetes mellitus brought in by EMS today after they were called because patient was having weakness, confusion, nausea and vomiting and elevated blood sugar. Patient unable to give a very good history as she is confused and most of the history was gotten from the emergency room physician. However patient was able to state that she was feeling very weak and having some abdominal pain. She denies any headache, no chest pain or shortness of breath but has been having some nausea and vomiting. Denies any diarrhea. Denies any hematuria or dysuria. Work-up in the emergency room reveals blood glucose greater than 1000 and patient was apparently in DKA. She was started on IV fluid and also placed on insulin drip. DKA BRITTNEY with vasomotor nephropathy nonoliguric Metabolic acidosis again secondary to DKA AFib with RVR Hypertensive urgency following initial hypotension COPD Dehydration Leukocytosis Anemia Hypotension Plan Continue ICU care Insulin DKA protocol has been discontinued yesterday due to correction but now with a rebound will resume insulin drip. Adjust insulin per protocol Beta-tray added per cardiology we will add hydralazine as needed. Initial amiodarone that was started has been discontinued in favor of beta-tray Cardiology consulted Patient noted with episodic Hypotension, address Replace electrolytes DVT/GI prophy CCT 35 MINS Discussed with film cleaner and also with the patient History Interval history: Patient seen and examined, appears dehydrated still remains lethargic although denies any pain. Intermittent tachycardia. Hospitalist Physical - Physical exam Narrative exam: General appearance: Present: mild distress, well-nourished. Lethargic - EENT Eyes: Present: PERRL, EOM intact ENT: hearing intact, clear oral mucosa, dentition normal - Neck Neck: Present: supple, normal ROM - Respiratory Respiratory effort: normal Respiratory: bilateral: CTA - Cardiovascular Rhythm: regular Heart Sounds: Present: S1 & S2 - Extremities Extremities: no ischemia, pulses intact, pulses symmetrical, No edema, Full ROM Peripheral Pulses: within normal limits - Abdominal General gastrointestinal: Present: soft, non-tender, non-distended, normal bowel sounds - Integumentary Integumentary: Present: clear, warm, dry - Musculoskeletal Musculoskeletal: generalized weakness - Psychiatric Psychiatric: cooperative, other - Neurologic Neurologic: CNII-XII intact, moves all extremities - Constitutional Vitals: Temp Pulse Resp BP Pulse Ox 98.0 F 84 14 138/49 100 02/14/20 08:00 02/14/20 08:30 02/14/20 08:30 02/14/20 08:30 02/14/20 04:00 General appearance: Present: no acute distress, other (lethargic) Results - Labs CBC & Chem 7: 02/14/20 04:29 02/14/20 11:21 Labs: Laboratory Last Values WBC 17.5 K/mm3 (4.5-11.0) H 02/14/20 04:29 RBC 2.83 M/mm3 (3.65-5.03) L 02/14/20 04:29 Hgb 9.4 gm/dl (10.1-14.3) L 02/14/20 04:29 Hct 27.6 % (30.3-42.9) L 02/14/20 04:29 MCV 97 fl (79-97) 02/14/20 04:29 MCH 33 pg (28-32) H 02/14/20 04:29 MCHC 34 % (30-34) 02/14/20 04:29 RDW 14.9 % (13.2-15.2) 02/14/20 04:29 Plt Count 185 K/mm3 (140-440) 02/14/20 04:29 Lymph % (Auto) 7.1 % (13.4-35.0) L 02/13/20 08:27 [place] % (Auto) 10.0 % (0.0-7.3) H 02/13/20 08:27 Eos % (Auto) 0.2 % (0.0-4.3) 02/13/20 08:27 Baso % (Auto) 0.2 % (0.0-1.8) 02/13/20 08:27 Lymph # 1.1 K/mm3 (1.2-5.4) L 02/13/20 08:27 [place] # 1.6 K/mm3 (0.0-0.8) H 02/13/20 08:27 Eos # 0.0 K/mm3 (0.0-0.4) 02/13/20 08:27 Baso # 0.0 K/mm3 (0.0-0.1) 02/13/20 08:27 Seg Neutrophils % 82.5 % (40.0-70.0) H 02/13/20 08:27 Seg Neutrophils # 13.1 K/mm3 (1.8-7.7) H 02/13/20 08:27 PT 15.1 Sec. (12.2-14.9) H 02/13/20 19:41 INR 1.21 (0.87-1.13) H 02/13/20 19:41 APTT 38.3 Sec. (24.2-36.6) H 02/14/20 04:29 Heparin Anti-Xa Level 1.32 U.I./ml (0.3-0.7) H 02/13/20 22:33 VBG pH 7.076 (7.320-7.420) L* 02/12/20 20:32 Sodium 141 mmol/L (137-145) 02/14/20 04:29 Potassium 5.3 mmol/L (3.6-5.0) H D 02/14/20 04:29 Chloride 111.0 mmol/L (98-107) H 02/14/20 04:29 Carbon Dioxide 8 mmol/L (22-30) L* 02/14/20 04:29 Anion Gap 27 mmol/L 02/14/20 04:29 BUN 44 mg/dL (7-17) H 02/14/20 04:29 Creatinine 1.6 mg/dL (0.7-1.2) H 02/14/20 04:29 Estimated GFR 39 ml/min 02/14/20 04:29 BUN/Creatinine Ratio 28 % 02/14/20 04:29 Glucose 484 mg/dL (65-100) H 02/14/20 04:29 POC Glucose > 500 (70-105) H 02/14/20 07:41 Hemoglobin A1c 10.5 % (4-6) H 02/12/20 23:05 Lactic Acid 1.40 mmol/L (0.7-2.0) 02/13/20 19:41 Calcium 8.3 mg/dL (8.4-10.2) L 02/14/20 04:29 Phosphorus 6.30 mg/dL (2.5-4.5) H D 02/12/20 23:05 Magnesium 2.70 mg/dL (1.7-2.3) H 02/12/20 23:05 Total Bilirubin 0.20 mg/dL (0.1-1.2) 02/13/20 06:14 AST 24 units/L (5-40) 02/13/20 06:14 ALT 23 units/L (7-56) 02/13/20 06:14 Alkaline Phosphatase 135 units/L (35-129) H 02/13/20 06:14 Ammonia 62.0 umol/L (25-60) H 02/12/20 20:32 Total Creatine Kinase 132 units/L (30-135) 02/12/20 20:32 Total Protein 5.8 g/dL (6.3-8.2) L 02/13/20 06:14 Albumin 3.8 g/dL (3.9-5) L 02/13/20 06:14 Albumin/Globulin Ratio 1.9 % 02/13/20 06:14 TSH 0.485 mlU/mL (0.270-4.200) 02/12/20 20:32 Urine Color Straw (Yellow) 02/12/20 21:10 Urine Turbidity Slightly-cloudy (Clear) 02/12/20 21:10 Urine pH 5.0 (5.0-7.0) 02/12/20 21:10 Ur Specific [place] 1.018 (1.003-1.030) 02/12/20 21:10 Urine Protein <15 mg/dl mg/dL (Negative) 02/12/20 21:10 Urine Glucose (UA) >=500 mg/dL (Negative) 02/12/20 21:10 Urine Ketones 20 mg/dL (Negative) 02/12/20 21:10 Urine Blood Sm (Negative) 02/12/20 21:10 Urine Nitrite Neg (Negative) 02/12/20 21:10 Urine Bilirubin Neg (Negative) 02/12/20 21:10 Urine Urobilinogen < 2.0 mg/dL (<2.0) 02/12/20 21:10 Ur Leukocyte Esterase Neg (Negative) 02/12/20 21:10 Urine WBC (Auto) 1.0 /HPF (0.0-6.0) 02/12/20 21:10 Urine RBC (Auto) 1.0 /HPF (0.0-6.0) 02/12/20 21:10 U Epithel Cells (Auto) < 1.0 /HPF (0-13.0) 02/12/20 21:10 Urine Bacteria (Auto) 2+ /HPF (Negative) 02/12/20 21:10 Urine Mucus Few /HPF 02/12/20 21:10 Salicylates < 0.3 mg/dL (2.8-20.0) L 02/12/20 20:32 Acetaminophen < 5.0 ug/mL (10.0-30.0) L 02/12/20 20:32 Plasma/Serum Alcohol < 0.01 % (0-0.07) 02/12/20 20:32 Microbiology: Microbiology 02/12/20 20:44 Peripheral/Venous Blood Culture - Preliminary NO GROWTH AFTER 24 HOURS 02/12/20 20:32 Peripheral/Venous Blood Culture - Preliminary NO GROWTH AFTER 24 HOURS Montero/IV: Voiding Method Bedpan IV Catheter Type [Left Peripheral IV Antecubital] IV Catheter Type [Left Wrist] INT / Saline Lock Active Medications - Current Medications Current Medications: Generic Name Dose Route Start Last Admin Trade Name Freq PRN Reason Stop Dose Admin Famotidine 20 mg 02/14/20 10:00 02/14/20 09:02 Pepcid IV 20 mg QDAY IVANA Administration Heparin Sodium/Sodium Chloride 25,000 unit in 500 mls @ 23 mls/hr 02/13/20 16:00 02/14/20 02:25 Heparin/ 0.45% Nacl-25,000 Unit/500 Ml IV 1,000 units/hr TITR IVANA 20 mls/hr Titration Protocol 1,150 UNITS/HR Amiodarone HCl 900 mg/ 500 mls @ 33.333 mls/hr 02/13/20 17:00 02/13/20 23:50 Dextrose IV 0.5 mg/min DIRECT IVANA 16.667 mls/hr Infusion Protocol 1 MG/MIN Sodium Bicarbonate 50 meq/ 1,050 mls @ 100 mls/hr 02/14/20 08:00 02/14/20 08:47 Sodium Chloride IV 100 mls/hr DIRECT IVANA Administration Insulin Glargine 40 units 02/14/20 10:00 02/14/20 09:02 Lantus SUB-Q 40 units QAM IVANA Administration Insulin Human Lispro 0 unit 02/13/20 22:00 02/14/20 08:48 Humalog SUB-Q 10 unit ACHS IVANA Administration Protocol Ondansetron HCl 4 mg 02/12/20 22:43 Zofran IV Q8H PRN Nausea And Vomiting Sodium Chloride 10 ml 02/13/20 10:00 02/14/20 09:03 Sodium Chloride Flush Syringe 10 Ml IV 10 ml BID IVANA Administration Nutrition/Malnutrition Assess - Dietary Evaluation Nutrition/Malnutrition Findings: Nutrition Notes Start: 02/13/20 11:36 Freq: Status: Active Protocol: Document 02/13/20 11:36 LM (Rec: 02/13/20 11:39 LM [email or web address]) Nutrition Notes Need for Assessment generated from: MD Order Initial or Follow up Brief Note Current Diagnosis Acute Kidney Injury,COPD, Diabetes,Hypertension, Hyperlipidemia Other Pertinent Diagnosis DKA, dehydration Current Diet NPO Labs/Tests BG 570 BUN 47 Cr 2.1 Pertinent Medications Insulin NaCl at 150ml/hr KCl/D5w/NaCl at 125ml/hr Height 5 ft 11 in Weight 76.2 kg [place] Body Weight (kg) 70.45 BMI 23.4 Weight Status Appropriate Subjective/Other Information MD consult for diet education and RN screen for MST. Unable to reach pt. Per RN notes pt is lethargic. Nutrition Intervention Follow-Up By: 02/14/20 Additional Comments F/U for diet education/ assessment
[2020-02-14] MEDS ORDERED: INSULIN DETEMIR 40 UNIT SQ SCH (10:00)
[2020-02-14] MEDS ORDERED: INSULIN GLARGINE 100 UNITS/ML SUB-Q SCH (10:00)
--- NOTE | 2020-02-14 10:24 | Progress Note ---
Assessment and Plan Pt converted to NSR overnight. D/c IV amio and initiate PO lopressor TID. Await echo. Cont heparin gtt and consider conversion to OAC prior to hospital discharge. Management of DKA per primary/critical care team. The patient has been seen in conjunction with Dr. Garcia who agrees with the assessment and plan of care. - Patient Problems (1) Atrial fibrillation with RVR Current Visit: Yes Status: Acute Plan to address problem: new onset (2) DKA (diabetic ketoacidoses) Current Visit: Yes Status: Acute (3) BRITTNEY (acute kidney injury) Current Visit: Yes Status: Acute (4) Anemia Current Visit: Yes Status: Acute (5) COPD (chronic obstructive pulmonary disease) Current Visit: Yes Status: Chronic Subjective Date of service: 02/14/20 Principal diagnosis: AFib RVR Interval history: pt resting in bed, remains lethargic. tele reviewed - pt converted to NSR overni ght. amio gtt infusing. Objective Last Vital Signs Temp 98.0 F 02/14/20 08:00 Pulse 86 02/14/20 10:30 Resp 24 02/14/20 10:30 BP 173/64 02/14/20 10:30 Pulse Ox 100 02/14/20 04:00 - Physical Examination General: Other (lethargic) HEENT: Positive: PERRL Neck: Positive: neck supple, trachea midline Cardiac: Positive: Reg Rate and Rhythm, S1/S2 Lungs: Positive: Decreased Breath Sounds Neuro: Positive: Other (lethargic) Abdomen: Negative: Tender Skin: Negative: Rash Musculoskeletal: No Pain Extremities: Absent: edema - Labs and Meds Coagulation 02/13/20 02/14/20 Range/Units 19:41 04:29 PT 15.1 H (12.2-14.9) Sec. INR 1.21 H (0.87-1.13) APTT 225.2 H* 38.3 H (24.2-36.6) Sec. CBC 02/13/20 02/14/20 Range/Units 19:41 04:29 WBC 17.5 H (4.5-11.0) K/mm3 RBC 2.83 L (3.65-5.03) M/mm3 Hgb 9.6 L 9.4 L (10.1-14.3) gm/dl Hct 28.6 L 27.6 L (30.3-42.9) % Plt Count 201 185 (140-440) K/mm3 Comprehensive Metabolic Panel 02/13/20 02/13/20 02/14/20 Range/Units 19:41 Unknown 04:29 Sodium 140 145 D 141 (137-145) mmol/L Potassium 3.6 3.2 L 5.3 H D (3.6-5.0) mmol/L Chloride 108.6 H 111.1 H 111.0 H (98-107) mmol/L Carbon Dioxide 10 L D 19 L D 8 L* (22-30) mmol/L BUN 41 H 42 H 44 H (7-17) mg/dL Creatinine 1.4 H 1.8 H 1.6 H (0.7-1.2) mg/dL Glucose 316 H 97 484 H (65-100) mg/dL Calcium 7.8 L 8.8 8.3 L (8.4-10.2) mg/dL - Imaging and Cardiology EKG: report reviewed, image reviewed Echo: pending - Telemetry EKG Rhythm: Sinus Rhythm
[2020-02-14] MEDS ORDERED: METOPROLOL TARTRATE 5 MG/5 ML INJ IV ONE (11:30)
--- NOTE | 2020-02-14 12:10 | Consultation ---
History of Present Illness - Reason for Consult Consult date: 02/14/20 acute renal failure, metabolic acidosis - History of Present Illness Patient is a poor historian. Per records: patient is a 69yo with type II DM who presented to the ED via EMS w/ hx of change in mental status, generalized weakness, N/V. In the ED, labs were obtained and notable for SCr 2.1, K 5.7, Bicarb 11 and glucose 1043. Nephrology has been consulted for BRITTNEY, metabolic acidosis Note consultation was placed on 02/11 appx 2300. However, due to IT issue, patient's name did not populate on SCN list, and consult was not called. Past History Past Medical History: COPD, diabetes, hypertension, hyperlipidemia Past Surgical History: No surgical history, cholecystectomy Social history: smoking (Daily smoker) Family history: no significant family history Medications and Allergies Allergies Allergy/AdvReac Type Severity Reaction Status Date / Time No Known Allergies Allergy Unverified 12/08/14 16:58 Home Medications Medication Instructions Recorded Confirmed Last Taken Type Albuterol Sulfate [Ventolin HFA] 2 puff IH Q4H PRN #1 hfa.aer.[id number] 12/08/14 Unknown Rx Azithromycin [Zithromax Z-RAHUL] 250 mg PO DAILY #6 tablet 12/08/14 Unknown Rx Benzonatate [Tessalon Perles] 100 mg PO Q8HR #30 capsule 12/08/14 Unknown Rx Acetaminophen/Codeine [Tylenol #3] 1 tab PO Q6H PRN #12 tab 04/21/17 Unknown Rx Furosemide [Lasix] 20 mg PO QDAY #10 tablet 04/21/17 Unknown Rx Insulin Detemir (Nf) [Levemir 40 unit SQ QAM #1 insuln.pen 12/12/17 Unknown Rx Flextouch] Docusate Sodium [Colace] 100 mg PO BID PRN #20 capsule 03/17/18 Unknown Rx Ibuprofen [Motrin] 800 mg PO Q8HR PRN #30 tablet 03/17/18 Unknown Rx traMADoL [Ultram 50 MG tab] 50 mg PO Q6HR PRN #20 tablet 03/17/18 Unknown Rx Active Meds: Active Medications Famotidine (Pepcid) 20 mg IV QDAY IVANA Last Admin: 02/14/20 09:02 Dose: 20 mg Documented by: Heparin Sodium/Sodium Chloride (Heparin/ 0.45% Nacl-25,000 Unit/500 Ml) 25,000 unit in 500 mls @ 23 mls/hr IV TITR [facility]; Protocol Last Titration: 02/14/20 02:25 Dose: 1,000 units/hr, 20 mls/hr Documented by: Sodium Bicarbonate 50 meq/ (Sodium Chloride) 1,050 mls @ 100 mls/hr IV DIRECT IVANA Last Admin: 02/14/20 08:47 Dose: 100 mls/hr Documented by: Insulin Glargine (Lantus) 40 units SUB-Q QAM IVANA Last Admin: 02/14/20 09:02 Dose: 40 units Documented by: Insulin Human Lispro (Humalog) 0 unit SUB-Q ACHS [facility]; Protocol Last Admin: 02/14/20 08:48 Dose: 10 unit Documented by: Metoprolol Tartrate (Metoprolol) 25 mg PO TID [facility] Ondansetron HCl (Zofran) 4 mg IV Q8H PRN PRN Reason: Nausea And Vomiting Sodium Chloride (Sodium Chloride Flush Syringe 10 Ml) 10 ml IV BID [facility] Last Admin: 02/14/20 09:03 Dose: 10 ml Documented by: Review of Systems All systems: negative Exam - Vital Signs Vital signs: Vital Signs Temp 97.8 F 02/12/20 20:10 - General Appearance General appearance: well-developed, well-nourished EENT: ATNC Respiratory: Clear to Ascultation Heart: regular, S1S2 Gastrointestinal: Present: normal. Absent: tenderness, distended Integumentary: no rash Musculoskeletal: Present: other (no edema) Psychiatric: cooperative Results - Lab Results 02/14/20 04:29 02/14/20 11:21 Most recent lab results Calcium 8.3 mg/dL (8.4-10.2) L 02/14/20 04:29 Phosphorus 6.30 mg/dL (2.5-4.5) H D 02/12/20 23:05 Magnesium 2.70 mg/dL (1.7-2.3) H 02/12/20 23:05 Assessment and Plan Impression: * Nonoliguric acute kidney injury secondary to prerenal azotemia due to volume depletion * Anion gap metabolic acidosis secondary to DKA * Atrial fibrillation w/ RVR * Anemia * Hypertension * Leukocytosis Plan: * Renal function has improved with hydration * Metabolic acidosis and anion gap worsened today - recommend resuming insulin gtt * Patient currently receiving hypertonic IVF - NS w/ 50meq bicarb; will change to 1/2 NS with 75meq bicarb for now * Cardiology following - rate control/anticoagulation per cardiology * Avoid potential nephrotoxins * Dose medications for renal function
[2020-02-14] MEDS: METOPROLOL TARTRATE 25 MG TAB PO SCH ×2 (13:06→20:43)
[2020-02-14 13:24] LABS: Calcium 8.1 mg/dL (8.4-10.2)
--- NOTE | 2020-02-14 14:04 | Progress Note ---
Assessment and Plan Diabetic ketoacidosis. Severe metabolic acidosis. Atrial Fibrillation Leukocytosis. Acute kidney injury. Elevated lactic acid levels. Acute encephalopathy. Hyperammonemia. History of hypertension. History of chronic obstructive pulmonary disease. History of hyperlipidemia. - continue IV insulin per DKA protocol - azotemia per nephrology - bicarbonate supplementation in short term - rate control for atrial fibrillation per cardiology - anticoagulation for A-fib - prn supplemental oxygen for target O2 sat's > 90% acutely - aspiration precautions - prn bronchodilators with pulmonary hygiene per RT - wean per pulmonary driven protocols otherwise - avoid benzodiazepine's, reduce the possibility of delirium - follow clinically off AB's - prn analgesia per pain score - Maintenance of sleep-wake cycle, avoid delirium -NPO till off IV insulin - G.I. & VTE prophylaxis - PT/OT/ROM exercises - continue mobility protocols for pressure ulcer prophylaxis - Monitor hemodynamics closely - continue other care per attending / other consultants - discharge planning ongoing concurrently .... Re-evaluate in am & prn CONDITION: CRITICAL PROGNOSIS: GUARDED CODE STATUS: FULL CODE The high probability of a clinically significant, sudden or life-threatening deterioration of the [endocrine, renal & neurologic] system(s) required my full and direct attention, intervention and personal management. The aggregate critical care time was [33] minutes without overlap. Time includes spent on; [x] Data Review and interpretation [x] Patient assessment and monitoring of vital signs [x] Documentation [x] Medication orders and management Subjective Date of service: 02/14/20 Principal diagnosis: DKA; Severe metabolic acidosis; A-fib; BRITTNEY; Ac encephalopathy; HTN; COPD Interval history: Patient is seen today for: DKA; Severe metabolic acidosis; Atrial Fibrillation; Leukocytosis; Acute kidney injury; Acute encephalopathy; HTN; COPD; hyperlipidemia. Seen and examined at bedside; 24hour events reviewed; nursing and respiratory care staff consulted; no adverse overnight events reported to me; resting peacefully in bed; denies acute chest pains or palpitations; remains somnolent Objective Vital Signs - 12hr 02/14/20 02/14/20 02/14/20 02:30 03:00 03:30 Temperature Pulse Rate 81 86 84 Pulse Rate [ Apical] Respiratory 18 15 19 Rate Blood Pressure 153/64 141/58 135/53 O2 Sat by Pulse 100 Oximetry 02/14/20 02/14/20 02/14/20 04:00 04:30 05:00 Temperature Pulse Rate 89 86 86 Pulse Rate [ 89 Apical] Respiratory 15 19 16 Rate Blood Pressure 146/55 117/47 118/54 O2 Sat by Pulse 100 Oximetry 02/14/20 02/14/20 02/14/20 05:30 06:00 06:30 Temperature 98.8 F Pulse Rate 86 84 84 Pulse Rate [ Apical] Respiratory 18 22 21 Rate Blood Pressure 125/47 131/49 134/56 O2 Sat by Pulse Oximetry 02/14/20 02/14/20 02/14/20 07:00 07:30 08:00 Temperature 98.0 F Pulse Rate 86 83 82 Pulse Rate [ Apical] Respiratory 22 20 21 Rate Blood Pressure 125/50 126/38 138/49 O2 Sat by Pulse Oximetry 02/14/20 02/14/20 02/14/20 08:20 08:30 09:00 Temperature Pulse Rate 84 83 Pulse Rate [ Apical] Respiratory 14 17 Rate Blood Pressure 138/49 150/53 O2 Sat by Pulse 100 Oximetry 02/14/20 02/14/20 02/14/20 09:30 10:00 10:30 Temperature Pulse Rate 88 90 86 Pulse Rate [ Apical] Respiratory 22 21 24 Rate Blood Pressure 150/53 150/53 173/64 O2 Sat by Pulse Oximetry 02/14/20 02/14/20 02/14/20 11:00 11:30 12:01 Temperature Pulse Rate 91 H 83 99 H Pulse Rate [ Apical] Respiratory 22 18 Rate Blood Pressure 195/77 174/64 208/89 O2 Sat by Pulse Oximetry 02/14/20 02/14/20 02/14/20 12:30 13:00 13:06 Temperature Pulse Rate 79 74 74 Pulse Rate [ Apical] Respiratory 23 16 Rate Blood Pressure 203/89 170/80 170/80 O2 Sat by Pulse Oximetry 02/14/20 13:30 Temperature Pulse Rate 72 Pulse Rate [ Apical] Respiratory 16 Rate Blood Pressure 170/80 O2 Sat by Pulse Oximetry Constitutional: no acute distress, other (elderly looking AAF with mildly inc reased respiratory effort at rest) Eyes: non-icteric ENT: oropharynx dry Neck: supple, no lymphadenopathy, no JVD Effort: mildly labored Ascultation: Bilateral: clear, diminished breath sounds Percussion: Bilateral: not dull Cardiovascular: regular rate and rhythm Gastrointestinal: normoactive bowel sounds, hypoactive bowel sounds, soft, tender (mild epigastric), non-distended Integumentary: normal Extremities: no cyanosis, no edema, pulses normal, no ischemia or petechiae Neurologic: non-focal exam (grossly), CN II-XII normal, motor strength normal and, other (somnolent) Psychiatric: other (flat affect) CBC and BMP: 02/14/20 04:29 02/14/20 14:46 ABG, PT/INR, D-dimer: PT/INR, D-dimer PT 15.1 Sec. (12.2-14.9) H 02/13/20 19:41 INR 1.21 (0.87-1.13) H 02/13/20 19:41 Abnormal lab findings: Abnormal Labs 02/12/20 02/12/20 02/12/20 20:32 20:32 20:32 WBC 16.9 H RBC 3.27 L Hgb Hct MCV 113 H MCH MCHC 29 L RDW 15.6 H Lymph % (Auto) 7.4 L Schuyler % (Auto) 7.7 H Lymph # Schuyler # 1.3 H Seg Neutrophils % 84.2 H Seg Neutrophils # 14.2 H PT 15.3 H INR 1.24 H APTT Heparin Anti-Xa Level VBG pH Sodium 128 L Potassium 5.7 H Chloride 83.9 L Carbon Dioxide 11 L BUN 51 H Creatinine 2.1 H Glucose 1043 H* POC Glucose Hemoglobin A1c Lactic Acid Calcium Phosphorus Magnesium Alkaline Phosphatase 159 H Ammonia Total Protein Albumin Salicylates Acetaminophen 02/12/20 02/12/20 02/12/20 20:32 20:32 20:32 WBC RBC Hgb Hct MCV MCH MCHC RDW Lymph % (Auto) Schuyler % (Auto) Lymph # Schuyler # Seg Neutrophils % Seg Neutrophils # PT INR APTT Heparin Anti-Xa Level VBG pH Sodium Potassium Chloride Carbon Dioxide BUN Creatinine Glucose POC Glucose Hemoglobin A1c Lactic Acid 4.30 H* Calcium Phosphorus Magnesium Alkaline Phosphatase Ammonia 62.0 H Total Protein Albumin Salicylates < 0.3 L Acetaminophen 02/12/20 02/12/20 02/12/20 20:32 20:32 20:32 WBC RBC Hgb Hct MCV MCH MCHC RDW Lymph % (Auto) Schuyler % (Auto) Lymph # Schuyler # Seg Neutrophils % Seg Neutrophils # PT INR APTT Heparin Anti-Xa Level VBG pH 7.076 L* Sodium Potassium Chloride Carbon Dioxide BUN Creatinine Glucose POC Glucose Hemoglobin A1c Lactic Acid Calcium Phosphorus Magnesium 3.10 H Alkaline Phosphatase Ammonia Total Protein Albumin Salicylates Acetaminophen < 5.0 L 02/12/20 02/12/20 02/12/20 21:38 21:38 23:05 WBC RBC Hgb Hct MCV MCH MCHC RDW Lymph % (Auto) Schuyler % (Auto) Lymph # Schuyler # Seg Neutrophils % Seg Neutrophils # PT INR APTT Heparin Anti-Xa Level VBG pH Sodium 128 L Potassium 5.5 H Chloride 84.4 L Carbon Dioxide 4 L* D BUN 52 H Creatinine 2.2 H Glucose 1124 H* POC Glucose Hemoglobin A1c Lactic Acid 3.30 H* Calcium Phosphorus 8.20 H Magnesium 3.20 H Alkaline Phosphatase Ammonia Total Protein Albumin Salicylates Acetaminophen 02/12/20 02/12/20 02/12/20 23:05 23:05 23:05 WBC RBC Hgb Hct MCV MCH MCHC RDW Lymph % (Auto) Schuyler % (Auto) Lymph # Schuyler # Seg Neutrophils % Seg Neutrophils # PT INR APTT Heparin Anti-Xa Level VBG pH Sodium 132 L Potassium Chloride 92.7 L Carbon Dioxide 3 L* BUN 51 H Creatinine 2.0 H Glucose 967 H* POC Glucose Hemoglobin A1c 10.5 H Lactic Acid Calcium 8.2 L Phosphorus 6.30 H D Magnesium 2.70 H Alkaline Phosphatase Ammonia Total Protein Albumin Salicylates Acetaminophen 02/12/20 02/13/20 02/13/20 23:57 01:12 01:24 WBC RBC Hgb Hct MCV MCH MCHC RDW Lymph % (Auto) Schuyler % (Auto) Lymph # Schuyler # Seg Neutrophils % Seg Neutrophils # PT INR APTT Heparin Anti-Xa Level VBG pH Sodium 135 L Potassium Chloride 96.2 L Carbon Dioxide 4 L* BUN 50 H Creatinine 2.0 H Glucose 845 H* POC Glucose > 500 H > 500 H Hemoglobin A1c Lactic Acid Calcium 8.3 L Phosphorus Magnesium Alkaline Phosphatase Ammonia Total Protein Albumin Salicylates Acetaminophen 02/13/20 02/13/20 02/13/20 02:25 03:30 04:50 WBC RBC Hgb Hct MCV MCH MCHC RDW Lymph % (Auto) Schuyler % (Auto) Lymph # [place] # Seg Neutrophils % Seg Neutrophils # PT INR APTT Heparin Anti-Xa Level VBG pH Sodium Potassium Chloride Carbon Dioxide BUN Creatinine Glucose POC Glucose > 500 H > 500 H > 500 H Hemoglobin A1c Lactic Acid Calcium Phosphorus Magnesium Alkaline Phosphatase Ammonia Total Protein Albumin Salicylates Acetaminophen 02/13/20 02/13/20 02/13/20 05:19 06:14 06:14 WBC RBC Hgb Hct MCV MCH MCHC RDW Lymph % (Auto) [place] % (Auto) Lymph # [place] # Seg Neutrophils % Seg Neutrophils # PT INR APTT Heparin Anti-Xa Level VBG pH Sodium Potassium Chloride Carbon Dioxide 9 L* BUN 47 H Creatinine 2.1 H Glucose 570 H* 569 H* POC Glucose > 500 H Hemoglobin A1c Lactic Acid Calcium Phosphorus Magnesium Alkaline Phosphatase 135 H Ammonia Total Protein 5.8 L Albumin 3.8 L Salicylates Acetaminophen 02/13/20 02/13/20 02/13/20 06:39 07:40 08:27 WBC RBC Hgb Hct MCV MCH MCHC RDW Lymph % (Auto) Schuyler % (Auto) Lymph # Sch[place] # Seg Neutrophils % Seg Neutrophils # PT INR APTT Heparin Anti-Xa Level VBG pH Sodium Potassium Chloride Carbon Dioxide BUN Creatinine Glucose POC Glucose > 500 H 467 H Hemoglobin A1c Lactic Acid 2.80 H* Calcium Phosphorus Magnesium Alkaline Phosphatase Ammonia Total Protein Albumin Salicylates Acetaminophen 02/13/20 02/13/20 02/13/20 08:27 08:49 09:37 WBC 15.9 H RBC 2.91 L Hgb 9.4 L Hct 28.0 L D MCV MCH MCHC RDW Lymph % (Auto) 7.1 L Schuyler % (Auto) 10.0 H Lymph # 1.1 L Schuyler # 1.6 H Seg Neutrophils % 82.5 H Seg Neutrophils # 13.1 H PT INR APTT Heparin Anti-Xa Level VBG pH Sodium Potassium Chloride Carbon Dioxide BUN Creatinine Glucose POC Glucose 324 H 270 H Hemoglobin A1c Lactic Acid Calcium Phosphorus Magnesium Alkaline Phosphatase Ammonia Total Protein Albumin Salicylates Acetaminophen 02/13/20 02/13/20 02/13/20 11:00 11:39 12:17 WBC RBC Hgb Hct MCV MCH MCHC RDW Lymph % (Auto) [place] % (Auto) Lymph # Sch[place] # Seg Neutrophils % Seg Neutrophils # PT INR APTT Heparin Anti-Xa Level VBG pH Sodium Potassium Chloride Carbon Dioxide BUN Creatinine Glucose POC Glucose 141 H 142 H Hemoglobin A1c Lactic Acid 3.70 H* Calcium Phosphorus Magnesium Alkaline Phosphatase Ammonia Total Protein Albumin Salicylates Acetaminophen 02/13/20 02/13/20 02/13/20 12:41 14:39 15:21 WBC RBC Hgb Hct MCV MCH MCHC RDW Lymph % (Auto) [place]uyler % (Auto) Lymph # [place] # Seg Neutrophils % Seg Neutrophils # PT INR APTT Heparin Anti-Xa Level VBG pH Sodium Potassium Chloride Carbon Dioxide BUN Creatinine Glucose POC Glucose 41 L 131 H Hemoglobin A1c Lactic Acid 3.90 H* Calcium Phosphorus Magnesium Alkaline Phosphatase Ammonia Total Protein Albumin Salicylates Acetaminophen 02/13/20 02/13/20 02/13/20 16:21 17:40 19:41 WBC RBC Hgb Hct MCV MCH MCHC RDW Lymph % (Auto) [place] % (Auto) Lymph # Sch[place] # Seg Neutrophils % Seg Neutrophils # PT INR APTT Heparin Anti-Xa Level VBG pH Sodium Potassium Chloride 108.6 H Carbon Dioxide 10 L D BUN 41 H Creatinine 1.4 H Glucose 316 H POC Glucose 162 H 210 H Hemoglobin A1c Lactic Acid Calcium 7.8 L Phosphorus Magnesium Alkaline Phosphatase Ammonia Total Protein Albumin Salicylates Acetaminophen 02/13/20 02/13/20 02/13/20 19:41 19:41 19:41 WBC RBC Hgb 9.6 L Hct 28.6 L MCV MCH MCHC RDW Lymph % (Auto) Schuyler % (Auto) Lymph # [place] # Seg Neutrophils % Seg Neutrophils # PT 15.1 H INR 1.21 H APTT 225.2 H* Heparin Anti-Xa Level 1.11 H VBG pH Sodium Potassium Chloride Carbon Dioxide BUN Creatinine Glucose POC Glucose Hemoglobin A1c Lactic Acid Calcium Phosphorus Magnesium Alkaline Phosphatase Ammonia Total Protein Albumin Salicylates Acetaminophen 02/13/20 02/13/20 02/13/20 21:22 22:33 Unknown WBC RBC Hgb Hct MCV MCH MCHC RDW Lymph % (Auto) [place] % (Auto) Lymph # [place] # Seg Neutrophils % Seg Neutrophils # PT INR APTT Heparin Anti-Xa Level 1.32 H VBG pH Sodium Potassium 3.2 L Chloride 111.1 H Carbon Dioxide 19 L D BUN 42 H Creatinine 1.8 H Glucose POC Glucose 314 H Hemoglobin A1c Lactic Acid Calcium Phosphorus Magnesium Alkaline Phosphatase Ammonia Total Protein Albumin Salicylates Acetaminophen 02/14/20 02/14/20 02/14/20 04:29 04:29 04:29 WBC 17.5 H RBC 2.83 L Hgb 9.4 L Hct 27.6 L MCV MCH 33 H MCHC RDW Lymph % (Auto) Schuyler % (Auto) Lymph # Sch[place] # Seg Neutrophils % Seg Neutrophils # PT INR APTT 38.3 H Heparin Anti-Xa Level VBG pH Sodium Potassium 5.3 H D Chloride 111.0 H Carbon Dioxide 8 L* BUN 44 H Creatinine 1.6 H Glucose 484 H POC Glucose Hemoglobin A1c Lactic Acid Calcium 8.3 L Phosphorus Magnesium Alkaline Phosphatase Ammonia Total Protein Albumin Salicylates Acetaminophen 02/14/20 02/14/20 02/14/20 07:41 11:21 11:30 WBC RBC Hgb Hct MCV MCH MCHC RDW Lymph % (Auto) [place] % (Auto) Lymph # Schu[place] # Seg Neutrophils % Seg Neutrophils # PT INR APTT Heparin Anti-Xa Level VBG pH Sodium Potassium Chloride 111.4 H Carbon Dioxide 6 L* BUN 46 H Creatinine 1.8 H Glucose 491 H POC Glucose > 500 H > 500 H Hemoglobin A1c Lactic Acid Calcium 8.1 L Phosphorus Magnesium Alkaline Phosphatase Ammonia Total Protein Albumin Salicylates Acetaminophen Allied health notes reviewed: nursing
[2020-02-14] MEDS ORDERED: INSULIN REGULAR, HUMAN 100 UNITS in SODIUM CHLORIDE 0.9% 99 ML IV SCH (15:00)
[2020-02-14] MEDS: SODIUM BICARBONATE 75 MEQ in SODIUM CHLORIDE 0.45% 1000 ML 1,000 ML IV SCH (17:22)
[2020-02-14 17:35] LABS: Calcium 8.7 mg/dL (8.4-10.2)
[2020-02-14] MEDS: hydrALAZINE 20 MG/1 ML INJ IV PRN (18:55)
[2020-02-14 19:46] LABS: Calcium 8.4 mg/dL (8.4-10.2)
[2020-02-14 21:05] LABS: Calcium 8.5 mg/dL (8.4-10.2)
[2020-02-14] MEDS: DEXTROSE 50% IN WATER (25GM) 50 ML SYRINGE IV PRN ×2 (21:39→22:14)
[2020-02-14] MEDS: HEPARIN/ 0.45% NACL DRIP 25,000 UNIT/500 ML BAG IV SCH (23:21)
[2020-02-15 00:04] LABS: Calcium 8.5 mg/dL (8.4-10.2)
[2020-02-15] MEDS: DEXTROSE 50% IN WATER (25GM) 50 ML SYRINGE IV PRN ×3 (00:20→05:50)
[2020-02-15] MEDS: hydrALAZINE 20 MG/1 ML INJ IV PRN (01:10)
[2020-02-15] MEDS: INSULIN LISPRO 100 UNIT/ML SUB-Q SCH ×7 (02:19→22:36)
[2020-02-15] MEDS: SODIUM BICARBONATE 75 MEQ in SODIUM CHLORIDE 0.45% 1000 ML 1,000 ML IV SCH (05:02)
[2020-02-15 05:24] LABS: Hematocrit 28.1 % (30.3-42.9); Hemoglobin 9.6 gm/dl (10.1-14.3); Mean Corpuscular HGB Conc 34 % (30-34); Mean Corpuscular Volume 95 fl (79-97); Platelet Count 171 K/mm3 (140-440); Red Blood Count 2.96 M/mm3 (3.65-5.03); Red Cell Distribution Width 14.6 % (13.2-15.2)
[2020-02-15 05:45] LABS: Calcium 8.5 mg/dL (8.4-10.2)
--- NOTE | 2020-02-15 08:11 | Progress Note ---
Assessment and Plan Assessment and plan: 69-year-old -[place] female with known history of COPD and diabetes mellitus brought in by EMS today after they were called because patient was having weakness, confusion, nausea and vomiting and elevated blood sugar. Patient unable to give a very good history as she is confused and most of the history was gotten from the emergency room physician. However patient was able to state that she was feeling very weak and having some abdominal pain. She denies any headache, no chest pain or shortness of breath but has been having some nausea and vomiting. Denies any diarrhea. Denies any hematuria or dysuria. Work-up in the emergency room reveals blood glucose greater than 1000 and patient was apparently in DKA. She was started on IV fluid and also placed on insulin drip. 02/14: DKA, metabolic acidosis resolved, appears on monitor to have reverted to SR. will transfer to telemetry. Discussed with general medical practitioner. Will transition to insulin regimen subcu and discontinue insulin drip which has already been done. Will defer to cardiology about discontinuation of heparin drip. DKA BRITTNEY with vasomotor nephropathy nonoliguric Metabolic acidosis again secondary to DKA AFib with RVR Hypertensive urgency following initial hypotension COPD Dehydration Leukocytosis Anemia Hypotension Plan Continue ICU care status post DKA protocol Adjust insulin per protocol Beta-tray added per cardiology plus hydralazine as needed. Initial amiodarone that was started has been discontinued in favor of beta-tray Cardiology consulted Patient noted with episodic Hypotension, address Replace electrolytes DVT/GI prophy Transfer to telemetry PT OT evaluation considering severe debility. History Interval history: Patient seen and examined, doing well this morning much improved no other acute events reported overnight Hospitalist Physical - Physical exam Narrative exam: General appearance: Present: mild distress, well-nourished. - EENT Eyes: Present: PERRL, EOM intact ENT: hearing intact, clear oral mucosa, dentition normal - Neck Neck: Present: supple, normal ROM - Respiratory Respiratory effort: normal Respiratory: bilateral: CTA - Cardiovascular Rhythm: regular Heart Sounds: Present: S1 & S2 - Extremities Extremities: no ischemia, pulses intact, pulses symmetrical, No edema, Full ROM Peripheral Pulses: within normal limits - Abdominal General gastrointestinal: Present: soft, non-tender, non-distended, normal bowel sounds - Integumentary Integumentary: Present: clear, warm, dry - Musculoskeletal Musculoskeletal: Moves all extremities - Psychiatric Psychiatric: cooperative, other - Neurologic Neurologic: CNII-XII intact, moves all extremities - Constitutional Vitals: Temp Pulse Resp BP Pulse Ox 98.7 F 104 H 15 141/76 100 02/15/20 04:00 02/15/20 07:00 02/15/20 07:00 02/15/20 07:00 02/14/20 08:20 General appearance: Present: no acute distress, other (lethargic) Results - Labs CBC & Chem 7: 02/15/20 05:06 02/15/20 05:06 Labs: Laboratory Last Values WBC 13.2 K/mm3 (4.5-11.0) H 02/15/20 05:06 RBC 2.96 M/mm3 (3.65-5.03) L 02/15/20 05:06 Hgb 9.6 gm/dl (10.1-14.3) L 02/15/20 05:06 Hct 28.1 % (30.3-42.9) L 02/15/20 05:06 MCV 95 fl (79-97) 02/15/20 05:06 MCH 32 pg (28-32) 02/15/20 05:06 MCHC 34 % (30-34) 02/15/20 05:06 RDW 14.6 % (13.2-15.2) 02/15/20 05:06 Plt Count 171 K/mm3 (140-440) 02/15/20 05:06 Lymph % (Auto) 7.1 % (13.4-35.0) L 02/13/20 08:27 [place] % (Auto) 10.0 % (0.0-7.3) H 02/13/20 08:27 Eos % (Auto) 0.2 % (0.0-4.3) 02/13/20 08:27 Baso % (Auto) 0.2 % (0.0-1.8) 02/13/20 08:27 Lymph # 1.1 K/mm3 (1.2-5.4) L 02/13/20 08:27 [place] # 1.6 K/mm3 (0.0-0.8) H 02/13/20 08:27 Eos # 0.0 K/mm3 (0.0-0.4) 02/13/20 08:27 Baso # 0.0 K/mm3 (0.0-0.1) 02/13/20 08:27 Seg Neutrophils % 82.5 % (40.0-70.0) H 02/13/20 08:27 Seg Neutrophils # 13.1 K/mm3 (1.8-7.7) H 02/13/20 08:27 PT 15.1 Sec. (12.2-14.9) H 02/13/20 19:41 INR 1.21 (0.87-1.13) H 02/13/20 19:41 APTT 38.3 Sec. (24.2-36.6) H 02/14/20 04:29 Heparin Anti-Xa Level 0.39 U.I./ml (0.3-0.7) 02/14/20 23:01 VBG pH 7.076 (7.320-7.420) L* 02/12/20 20:32 Sodium 147 mmol/L (137-145) H 02/15/20 05:06 Potassium 3.1 mmol/L (3.6-5.0) L 02/15/20 05:06 Chloride 115.0 mmol/L (98-107) H 02/15/20 05:06 Carbon Dioxide 18 mmol/L (22-30) L 02/15/20 05:06 Anion Gap 17 mmol/L 02/15/20 05:06 BUN 34 mg/dL (7-17) H 02/15/20 05:06 Creatinine 1.1 mg/dL (0.7-1.2) 02/15/20 05:06 Estimated GFR 59 ml/min 02/15/20 05:06 BUN/Creatinine Ratio 31 % 02/15/20 05:06 Glucose 82 mg/dL (65-100) 02/15/20 05:06 POC Glucose 59 (70-105) L 02/15/20 06:02 Hemoglobin A1c 10.5 % (4-6) H 02/12/20 23:05 Lactic Acid 1.40 mmol/L (0.7-2.0) 02/13/20 19:41 Calcium 8.5 mg/dL (8.4-10.2) 02/15/20 05:06 Phosphorus 6.30 mg/dL (2.5-4.5) H D 05/11/20 23:05 Magnesium 2.70 mg/dL (1.7-2.3) H 02/12/20 23:05 Total Bilirubin 0.20 mg/dL (0.1-1.2) 02/13/20 06:14 AST 24 units/L (5-40) 02/13/20 06:14 ALT 23 units/L (7-56) 02/13/20 06:14 Alkaline Phosphatase 135 units/L (35-129) H 02/13/20 06:14 Ammonia 62.0 umol/L (25-60) H 02/12/20 20:32 Total Creatine Kinase 132 units/L (30-135) 02/12/20 20:32 Total Protein 5.8 g/dL (6.3-8.2) L 02/13/20 06:14 Albumin 3.8 g/dL (3.9-5) L 02/13/20 06:14 Albumin/Globulin Ratio 1.9 % 02/13/20 06:14 TSH 0.485 mlU/mL (0.270-4.200) 02/12/20 20:32 Urine Color Straw (Yellow) 02/12/20 21:10 Urine Turbidity Slightly-cloudy (Clear) 02/12/20 21:10 Urine pH 5.0 (5.0-7.0) 02/12/20 21:10 Ur Specific [place] 1.018 (1.003-1.030) 02/12/20 21:10 Urine Protein <15 mg/dl mg/dL (Negative) 02/12/20 21:10 Urine Glucose (UA) >=500 mg/dL (Negative) 02/12/20 21:10 Urine Ketones 20 mg/dL (Negative) 02/12/20 21:10 Urine Blood Sm (Negative) 02/12/20 21:10 Urine Nitrite Neg (Negative) 02/12/20 21:10 Urine Bilirubin Neg (Negative) 02/12/20 21:10 Urine Urobilinogen < 2.0 mg/dL (<2.0) 02/12/20 21:10 Ur Leukocyte Esterase Neg (Negative) 02/12/20 21:10 Urine WBC (Auto) 1.0 /HPF (0.0-6.0) 02/12/20 21:10 Urine RBC (Auto) 1.0 /HPF (0.0-6.0) 02/12/20 21:10 U Epithel Cells (Auto) < 1.0 /HPF (0-13.0) 02/12/20 21:10 Urine Bacteria (Auto) 2+ /HPF (Negative) 02/12/20 21:10 Urine Mucus Few /HPF 02/12/20 21:10 Salicylates < 0.3 mg/dL (2.8-20.0) L 02/12/20 20:32 Acetaminophen < 5.0 ug/mL (10.0-30.0) L 02/12/20 20:32 Plasma/Serum Alcohol < 0.01 % (0-0.07) 02/12/20 20:32 Microbiology: Microbiology 02/12/20 20:44 Peripheral/Venous Blood Culture - Preliminary NO GROWTH AFTER 48 HOURS 02/12/20 20:32 Peripheral/Venous Blood Culture - Preliminary NO GROWTH AFTER 48 HOURS 02/12/20 Unknown Urine,Catheterized - Straight Catheter Urine Culture - Preliminary - Diagnostic Impressions Diagnostic Impressions: Echocardiogram 02/14/20 08:00 Transthoracic Echocardiogram Indication: Afib BP: 134/56 Conclusions *The left ventricular chamber size is normal.There is no left ventricular hypertrophy. *The estimated ejection fraction is 60-65%. *The left atrial chamber size is normal. Findings Left Ventricle: The left ventricular chamber size is normal. There is no left ventricular hypertrophy. The estimated ejection fraction is 60-65%. Abnormal left ventricular diastolic filling is observed, consistent with impaired relaxation. Left Atrium: The left atrial chamber size is normal. Right Ventricle: The right ventricular cavity size is normal. Right Atrium: The right atrial cavity size is normal. Aortic Valve: The aortic valve is trileaflet. There is no evidence of aortic regurgitation. Mitral Valve: The mitral valve leaflets appear normal. There is mild mitral regurgitation. Tricuspid Valve: The tricuspid valve leaflets are normal. There is mild tricuspid regurgitation. Pulmonic Valve: The pulmonic valve appears normal. There is trace pulmonic regurgitation. Pericardium: There is no pericardial effusion. Aorta: The aorta appears normal. Venous: The inferior vena cava appears normal in size. Measurements Chambers 2D Name Value Normal Range IVSd (2D) 0.84 cm (0.6 - 1.1) LVPWd (2D) 0.9 cm (0.6 - 1.1) LVIDd (2D) 4.78 cm (3.7 - 5.6) LVIDs (2D) 2.28 cm (2 - 3.8) LV FS (2D) 52.26 % - EF Teichholz (2D) 83.32 % - Ao root diameter (2D) 2.72 cm (2 - 3.7) Volumes/Mass Name Value Normal Range LA ESV SP 4CH (A/L) 31.13 ml - LA ESV SP 2CH (A/L) 49.6 ml - LA ESV BP (A/L) 39.87 ml - LA ESV BP (A/L) index 20.45 ml/m2 - LA ESV SP 4CH (MOD) 28.41 ml - LA ESV SP 2CH (MOD) 48.64 ml - LA ESV BP (MOD) 37.54 ml - LA ESV BP (MOD) index 19.25 ml/m2 - LV EDV SP 4CH (MOD) 97.39 ml - LV ESV SP 4CH (MOD) 13.63 ml - EF SP 4CH (MOD) 86.01 % - LV EDV SP 2CH (MOD) 133.52 ml - LV ESV SP 2CH (MOD) 34.97 ml - EF SP 2CH (MOD) 73.81 % - LV EDV BP 117.82 ml - LV ESV BP 21.56 ml - BP EF (MOD) 81.7 % - Diastolic/Systolic Function Name Value Normal Range MV E-wave Vmax 1.14 m/sec - MV deceleration time 205.21 msec - MV A-wave Vmax 0.82 m/sec - MV E:A ratio 1.39 ratio - Aortic Valve Name Value Normal Range AV Vmax 1.47 m/sec - AV VTI 31.87 cm - AV peak gradient 8.61 mmHg - AV mean gradient 4.25 mmHg - LVOT diameter 2 cm - LVOT Vmax 1.31 m/sec - LVOT VTI 28.41 cm - LVOT peak gradient 6.91 mmHg - LVOT mean gradient 2.69 mmHg - SV LVOT 89 ml - COLLIN (continuity Vmax) 2.81 cm2 - COLLIN (continuity VTI) 2.79 cm2 - Ascending Ao 2.95 cm - Tricuspid Valve Name Value Normal Range TR Vmax 2.52 m/sec - TR peak gradient 25 mmHg - RAP 3 mmHg - RVSP 28 mmHg - Pulmonic Valve/Qp:Qs Name Value Normal Range PV Vmax 1.12 m/sec - PV VTI 21.8 cm - PV peak gradient 5 mmHg - PV mean gradient 2.29 mmHg - RVOT Vmax 0.83 m/sec - RVOT VTI 20.77 cm - RVOT peak gradient 2.78 mmHg - [place]/IV: Voiding Method Bedpan IV Catheter Type [Left Forearm INT / Saline Lock ] IV Catheter Type [Left Peripheral IV Antecubital] IV Catheter Type [Left Wrist] INT / Saline Lock Active Medications - Current Medications Current Medications: Generic Name Dose Route Start Last Admin Trade Name Freq PRN Reason Stop Dose Admin Dextrose 50 ml 02/14/20 21:24 02/15/20 05:50 D50w (25gm) Syringe IV 20 ml Q30MIN PRN Administration Hypoglycemia Protocol Famotidine 20 mg 02/14/20 10:00 02/14/20 09:02 Pepcid IV 20 mg QDAY IVANA Administration Hydralazine HCl 10 mg 02/14/20 18:24 02/15/20 01:10 Apresoline IV 10 mg Q6H PRN Administration SBP >160 Heparin Sodium/Sodium Chloride 25,000 unit in 500 mls @ 23 mls/hr 02/13/20 16:00 02/15/20 00:02 Heparin/ 0.45% Nacl-25,000 Unit/500 Ml IV 1,000 units/hr TITR IVANA 20 mls/hr Titration Protocol 1,150 UNITS/HR Sodium Bicarbonate 75 meq/ 1,075 mls @ 100 mls/hr 02/14/20 15:00 02/15/20 05:02 Sodium Chloride IV 100 mls/hr DIRECT IVANA Administration Potassium Chloride 10 meq in 100 mls @ 100 mls/hr 02/15/20 09:00 Kcl 10meq/100ml IV 02/15/20 12:59 Q1H [facility] Insulin Glargine 20 units 02/15/20 08:30 Lantus SUB-Q BIDDIAB [facility] Insulin Human Lispro 0 unit 02/15/20 02:00 02/15/20 05:55 Humalog SUB-Q Not Given Q2HR [facility] Protocol Metoprolol Tartrate 25 mg 02/14/20 14:00 02/14/20 20:43 Metoprolol PO 25 mg TID IVANA Administration Ondansetron HCl 4 mg 02/12/20 22:43 Zofran IV Q8H PRN Nausea And Vomiting Sodium Chloride 10 ml 02/13/20 10:00 02/14/20 21:39 Sodium Chloride Flush Syringe 10 Ml IV 10 ml BID IVANA Administration Nutrition/Malnutrition Assess - Dietary Evaluation Nutrition/Malnutrition Findings: Nutrition Notes Start: 02/13/20 11:36 Freq: Status: Active Protocol: Document 02/14/20 10:44 COUNT INCLUDES THE [facility] (Rec: 02/14/20 10:46 COUNT INCLUDES THE [facility] SRW- [id number]) Nutrition Notes Initial or Follow up Brief Note Current Diet Consistent CHO Labs/Tests BG 484 BUN 44 Cr 1.6 K 5.3 A1C 10.5 Subjective/Other Information Diet advanced for breakfast this am. RD unable to reach pt by phone at 10:41. Nutrition Intervention Follow-Up By: 02/16/20 Additional Comments F/U: PO tolerance/intakes, need for DM diet education (or appropriateness)
--- NOTE | 2020-02-15 09:17 | Progress Note ---
Assessment and Plan Diabetic ketoacidosis, off insulin infusion. Severe metabolic acidosis. Atrial Fibrillation on heparin infusion Leukocytosis. Acute kidney injury. Elevated lactic acid levels. Acute encephalopathy. Hyperammonemia. History of hypertension. History of chronic obstructive pulmonary disease. History of hyperlipidemia. -weight based, basal bolus insulin - azotemia per nephrology - bicarbonate supplementation - rate control for atrial fibrillation per cardiology - anticoagulation for A-fib, heparin infusion - prn supplemental oxygen for target O2 sat's > 90% acutely - aspiration precautions, HOB >40 -diabetic education, modified diet - avoid benzodiazepines, reduce the possibility of delirium - prn analgesia per pain score - Maintenance of sleep-wake cycle, avoid delirium - PT/OT/ROM exercises - continue mobility protocols for pressure ulcer prevention - Monitor hemodynamics closely - continue other care per attending / other consultants -Stable for transfer out of the ICU .... Re-evaluate in am & prn CONDITION: FAIR PROGNOSIS: FAIR CODE STATUS: FULL CODE Subjective Date of service: 02/15/20 Principal diagnosis: DKA; Severe metabolic acidosis; A-fib; BRITTNEY; Ac encephalopathy; HTN; COPD Interval history: Patient is seen today for: DKA; Severe metabolic acidosis; Atrial Fibrillation; Leukocytosis; Acute kidney injury; Acute encephalopathy; HTN; COPD; hyperlipidemia. Seen and examined at bedside; 24hour events reviewed; nursing and respiratory care staff consulted; no adverse overnight events reported to me; resting peacefully in bed; denies acute chest pains or palpitations; awake and alert. Off insulin infusion, heparin infusion running Objective Vital Signs - 12hr 02/14/20 02/14/20 02/14/20 22:00 23:00 23:40 Temperature Pulse Rate 72 70 68 Respiratory 18 21 19 Rate Blood Pressure 163/75 152/68 152/68 02/15/20 02/15/20 02/15/20 00:00 01:00 01:10 Temperature 98.6 F Pulse Rate 70 69 70 Respiratory 16 17 Rate Blood Pressure 152/77 152/77 180/75 02/15/20 02/15/20 02/15/20 02:00 03:00 04:00 Temperature 98.7 F Pulse Rate 74 74 117 H Respiratory 20 19 15 Rate Blood Pressure 180/75 151/69 164/90 02/15/20 02/15/20 02/15/20 05:00 06:00 07:00 Temperature Pulse Rate 123 H 127 H 104 H Respiratory 14 19 15 Rate Blood Pressure 158/99 136/63 141/76 02/15/20 08:00 Temperature Pulse Rate 133 H Respiratory 18 Rate Blood Pressure 149/78 Constitutional: no acute distress, alert Eyes: non-icteric ENT: oropharynx dry Neck: supple, no lymphadenopathy, no JVD Effort: normal Ascultation: Bilateral: clear, diminished breath sounds Percussion: Bilateral: not dull Cardiovascular: regular rate and rhythm Gastrointestinal: normoactive bowel sounds, hypoactive bowel sounds, soft, tender (mild epigastric), non-distended Integumentary: normal Extremities: no cyanosis, no edema, pulses normal, no ischemia or petechiae Neurologic: non-focal exam (grossly), CN II-XII normal, motor strength normal and Psychiatric: mood appropriate, affect normal CBC and BMP: 02/16/20 05:11 02/16/20 05:11 ABG, PT/INR, D-dimer: PT/INR, D-dimer PT 15.1 Sec. (12.2-14.9) H 02/13/20 19:41 INR 1.21 (0.87-1.13) H 02/13/20 19:41 Abnormal lab findings: Abnormal Labs 02/12/20 02/12/20 02/12/20 20:32 20:32 20:32 WBC 16.9 H RBC 3.27 L Hgb Hct MCV 113 H MCH MCHC 29 L RDW 15.6 H Lymph % (Auto) 7.4 L Noble % (Auto) 7.7 H Lymph # Noble # 1.3 H Seg Neutrophils % 84.2 H Seg Neutrophils # 14.2 H PT 15.3 H INR 1.24 H APTT Heparin Anti-Xa Level VBG pH Sodium 128 L Potassium 5.7 H Chloride 83.9 L Carbon Dioxide 11 L BUN 51 H Creatinine 2.1 H Glucose 1043 H* POC Glucose Hemoglobin A1c Lactic Acid Calcium Phosphorus Magnesium Alkaline Phosphatase 159 H Ammonia Total Protein Albumin Salicylates Acetaminophen 02/12/20 02/12/20 02/12/20 20:32 20:32 20:32 WBC RBC Hgb Hct MCV MCH MCHC RDW Lymph % (Auto) Noble % (Auto) Lymph # Noble # Seg Neutrophils % Seg Neutrophils # PT INR APTT Heparin Anti-Xa Level VBG pH Sodium Potassium Chloride Carbon Dioxide BUN Creatinine Glucose POC Glucose Hemoglobin A1c Lactic Acid 4.30 H* Calcium Phosphorus Magnesium Alkaline Phosphatase Ammonia 62.0 H Total Protein Albumin Salicylates < 0.3 L Acetaminophen 02/12/20 02/12/20 02/12/20 20:32 20:32 20:32 WBC RBC Hgb Hct MCV MCH MCHC RDW Lymph % (Auto) Noble % (Auto) Lymph # Noble # Seg Neutrophils % Seg Neutrophils # PT INR APTT Heparin Anti-Xa Level VBG pH 7.076 L* Sodium Potassium Chloride Carbon Dioxide BUN Creatinine Glucose POC Glucose Hemoglobin A1c Lactic Acid Calcium Phosphorus Magnesium 3.10 H Alkaline Phosphatase Ammonia Total Protein Albumin Salicylates Acetaminophen < 5.0 L 02/12/20 02/12/20 02/12/20 21:38 21:38 23:05 WBC RBC Hgb Hct MCV MCH MCHC RDW Lymph % (Auto) Noble % (Auto) Lymph # Noble # Seg Neutrophils % Seg Neutrophils # PT INR APTT Heparin Anti-Xa Level VBG pH Sodium 128 L Potassium 5.5 H Chloride 84.4 L Carbon Dioxide 4 L* D BUN 52 H Creatinine 2.2 H Glucose 1124 H* POC Glucose Hemoglobin A1c Lactic Acid 3.30 H* Calcium Phosphorus 8.20 H Magnesium 3.20 H Alkaline Phosphatase Ammonia Total Protein Albumin Salicylates Acetaminophen 02/12/20 02/12/20 02/12/20 23:05 23:05 23:05 WBC RBC Hgb Hct MCV MCH MCHC RDW Lymph % (Auto) Noble % (Auto) Lymph # Noble # Seg Neutrophils % Seg Neutrophils # PT INR APTT Heparin Anti-Xa Level VBG pH Sodium 132 L Potassium Chloride 92.7 L Carbon Dioxide 3 L* BUN 51 H Creatinine 2.0 H Glucose 967 H* POC Glucose Hemoglobin A1c 10.5 H Lactic Acid Calcium 8.2 L Phosphorus 6.30 H D Magnesium 2.70 H Alkaline Phosphatase Ammonia Total Protein Albumin Salicylates Acetaminophen 02/12/20 02/13/20 02/13/20 23:57 01:12 01:24 WBC RBC Hgb Hct MCV MCH MCHC RDW Lymph % (Auto) Noble % (Auto) Lymph # Noble # Seg Neutrophils % Seg Neutrophils # PT INR APTT Heparin Anti-Xa Level VBG pH Sodium 135 L Potassium Chloride 96.2 L Carbon Dioxide 4 L* BUN 50 H Creatinine 2.0 H Glucose 845 H* POC Glucose > 500 H > 500 H Hemoglobin A1c Lactic Acid Calcium 8.3 L Phosphorus Magnesium Alkaline Phosphatase Ammonia Total Protein Albumin Salicylates Acetaminophen 02/13/20 02/13/20 02/13/20 02:25 03:30 04:50 WBC RBC Hgb Hct MCV MCH MCHC RDW Lymph % (Auto) Noble % (Auto) Lymph # Noble # Seg Neutrophils % Seg Neutrophils # PT INR APTT Heparin Anti-Xa Level VBG pH Sodium Potassium Chloride Carbon Dioxide BUN Creatinine Glucose POC Glucose > 500 H > 500 H > 500 H Hemoglobin A1c Lactic Acid Calcium Phosphorus Magnesium Alkaline Phosphatase Ammonia Total Protein Albumin Salicylates Acetaminophen 02/13/20 02/13/20 02/13/20 05:19 06:14 06:14 WBC RBC Hgb Hct MCV MCH MCHC RDW Lymph % (Auto) Noble % (Auto) Lymph # Noble # Seg Neutrophils % Seg Neutrophils # PT INR APTT Heparin Anti-Xa Level VBG pH Sodium Potassium Chloride Carbon Dioxide 9 L* BUN 47 H Creatinine 2.1 H Glucose 570 H* 569 H* POC Glucose > 500 H Hemoglobin A1c Lactic Acid Calcium Phosphorus Magnesium Alkaline Phosphatase 135 H Ammonia Total Protein 5.8 L Albumin 3.8 L Salicylates Acetaminophen 02/13/20 02/13/20 02/13/20 06:39 07:40 08:27 WBC RBC Hgb Hct MCV MCH MCHC RDW Lymph % (Auto) Noble % (Auto) Lymph # Noble # Seg Neutrophils % Seg Neutrophils # PT INR APTT Heparin Anti-Xa Level VBG pH Sodium Potassium Chloride Carbon Dioxide BUN Creatinine Glucose POC Glucose > 500 H 467 H Hemoglobin A1c Lactic Acid 2.80 H* Calcium Phosphorus Magnesium Alkaline Phosphatase Ammonia Total Protein Albumin Salicylates Acetaminophen 02/13/20 02/13/20 02/13/20 08:27 08:49 09:37 WBC 15.9 H RBC 2.91 L Hgb 9.4 L Hct 28.0 L D MCV MCH MCHC RDW Lymph % (Auto) 7.1 L Noble % (Auto) 10.0 H Lymph # 1.1 L Noble # 1.6 H Seg Neutrophils % 82.5 H Seg Neutrophils # 13.1 H PT INR APTT Heparin Anti-Xa Level VBG pH Sodium Potassium Chloride Carbon Dioxide BUN Creatinine Glucose POC Glucose 324 H 270 H Hemoglobin A1c Lactic Acid Calcium Phosphorus Magnesium Alkaline Phosphatase Ammonia Total Protein Albumin Salicylates Acetaminophen 02/13/20 02/13/20 02/13/20 11:00 11:39 12:17 WBC RBC Hgb Hct MCV MCH MCHC RDW Lymph % (Auto) Noble % (Auto) Lymph # Noble # Seg Neutrophils % Seg Neutrophils # PT INR APTT Heparin Anti-Xa Level VBG pH Sodium Potassium Chloride Carbon Dioxide BUN Creatinine Glucose POC Glucose 141 H 142 H Hemoglobin A1c Lactic Acid 3.70 H* Calcium Phosphorus Magnesium Alkaline Phosphatase Ammonia Total Protein Albumin Salicylates Acetaminophen 02/13/20 02/13/20 02/13/20 12:41 14:39 15:21 WBC RBC Hgb Hct MCV MCH MCHC RDW Lymph % (Auto) Noble % (Auto) Lymph # Noble # Seg Neutrophils % Seg Neutrophils # PT INR APTT Heparin Anti-Xa Level VBG pH Sodium Potassium Chloride Carbon Dioxide BUN Creatinine Glucose POC Glucose 41 L 131 H Hemoglobin A1c Lactic Acid 3.90 H* Calcium Phosphorus Magnesium Alkaline Phosphatase Ammonia Total Protein Albumin Salicylates Acetaminophen 02/13/20 02/13/20 02/13/20 16:21 17:40 19:41 WBC RBC Hgb Hct MCV MCH MCHC RDW Lymph % (Auto) Noble % (Auto) Lymph # Noble # Seg Neutrophils % Seg Neutrophils # PT INR APTT Heparin Anti-Xa Level VBG pH Sodium Potassium Chloride 108.6 H Carbon Dioxide 10 L D BUN 41 H Creatinine 1.4 H Glucose 316 H POC Glucose 162 H 210 H Hemoglobin A1c Lactic Acid Calcium 7.8 L Phosphorus Magnesium Alkaline Phosphatase Ammonia Total Protein Albumin Salicylates Acetaminophen 02/13/20 02/13/20 02/13/20 19:41 19:41 19:41 WBC RBC Hgb 9.6 L Hct 28.6 L MCV MCH MCHC RDW Lymph % (Auto) Noble % (Auto) Lymph # Noble # Seg Neutrophils % Seg Neutrophils # PT 15.1 H INR 1.21 H APTT 225.2 H* Heparin Anti-Xa Level 1.11 H VBG pH Sodium Potassium Chloride Carbon Dioxide BUN Creatinine Glucose POC Glucose Hemoglobin A1c Lactic Acid Calcium Phosphorus Magnesium Alkaline Phosphatase Ammonia Total Protein Albumin Salicylates Acetaminophen 02/13/20 02/13/20 02/13/20 21:22 22:33 Unknown WBC RBC Hgb Hct MCV MCH MCHC RDW Lymph % (Auto) Noble % (Auto) Lymph # Noble # Seg Neutrophils % Seg Neutrophils # PT INR APTT Heparin Anti-Xa Level 1.32 H VBG pH Sodium Potassium 3.2 L Chloride 111.1 H Carbon Dioxide 19 L D BUN 42 H Creatinine 1.8 H Glucose POC Glucose 314 H Hemoglobin A1c Lactic Acid Calcium Phosphorus Magnesium Alkaline Phosphatase Ammonia Total Protein Albumin Salicylates Acetaminophen 02/14/20 02/14/20 02/14/20 04:29 04:29 04:29 WBC 17.5 H RBC 2.83 L Hgb 9.4 L Hct 27.6 L MCV MCH 33 H MCHC RDW Lymph % (Auto) Noble % (Auto) Lymph # Noble # Seg Neutrophils % Seg Neutrophils # PT INR APTT 38.3 H Heparin Anti-Xa Level VBG pH Sodium Potassium 5.3 H D Chloride 111.0 H Carbon Dioxide 8 L* BUN 44 H Creatinine 1.6 H Glucose 484 H POC Glucose Hemoglobin A1c Lactic Acid Calcium 8.3 L Phosphorus Magnesium Alkaline Phosphatase Ammonia Total Protein Albumin Salicylates Acetaminophen 02/14/20 02/14/20 02/14/20 07:41 11:21 11:30 WBC RBC Hgb Hct MCV MCH MCHC RDW Lymph % (Auto) Noble % (Auto) Lymph # Noble # Seg Neutrophils % Seg Neutrophils # PT INR APTT Heparin Anti-Xa Level VBG pH Sodium Potassium Chloride 111.4 H Carbon Dioxide 6 L* BUN 46 H Creatinine 1.8 H Glucose 491 H POC Glucose > 500 H > 500 H Hemoglobin A1c Lactic Acid Calcium 8.1 L Phosphorus Magnesium Alkaline Phosphatase Ammonia Total Protein Albumin Salicylates Acetaminophen 02/14/20 02/14/20 02/14/20 14:46 18:01 18:41 WBC RBC Hgb Hct MCV MCH MCHC RDW Lymph % (Auto) Noble % (Auto) Lymph # Noble # Seg Neutrophils % Seg Neutrophils # PT INR APTT Heparin Anti-Xa Level VBG pH Sodium Potassium Chloride 114.0 H Carbon Dioxide 10 L BUN 44 H Creatinine 1.6 H Glucose 284 H POC Glucose 242 H 206 H Hemoglobin A1c Lactic Acid Calcium Phosphorus Magnesium Alkaline Phosphatase Ammonia Total Protein Albumin Salicylates Acetaminophen 02/14/20 02/14/20 02/14/20 19:07 20:20 23:01 WBC RBC Hgb Hct MCV MCH MCHC RDW Lymph % (Auto) Noble % (Auto) Lymph # Noble # Seg Neutrophils % Seg Neutrophils # PT INR APTT Heparin Anti-Xa Level VBG pH Sodium 146 H 146 H Potassium Chloride 118.4 H 116.9 H 114.6 H Carbon Dioxide 15 L 13 L 17 L BUN 41 H 42 H 39 H Creatinine 1.4 H 1.7 H Glucose 114 H 120 H POC Glucose Hemoglobin A1c Lactic Acid Calcium Phosphorus Magnesium Alkaline Phosphatase Ammonia Total Protein Albumin Salicylates Acetaminophen 02/15/20 02/15/20 02/15/20 00:16 02:20 04:09 WBC RBC Hgb Hct MCV MCH MCHC RDW Lymph % (Auto) Noble % (Auto) Lymph # Noble # Seg Neutrophils % Seg Neutrophils # PT INR APTT Heparin Anti-Xa Level VBG pH Sodium Potassium Chloride Carbon Dioxide BUN Creatinine Glucose POC Glucose 62 L 61 L 251 H Hemoglobin A1c Lactic Acid Calcium Phosphorus Magnesium Alkaline Phosphatase Ammonia Total Protein Albumin Salicylates Acetaminophen 02/15/20 02/15/20 02/15/20 05:06 05:06 06:02 WBC 13.2 H RBC 2.96 L Hgb 9.6 L Hct 28.1 L MCV MCH MCHC RDW Lymph % (Auto) Noble % (Auto) Lymph # Noble # Seg Neutrophils % Seg Neutrophils # PT INR APTT Heparin Anti-Xa Level VBG pH Sodium 147 H Potassium 3.1 L Chloride 115.0 H Carbon Dioxide 18 L BUN 34 H Creatinine Glucose POC Glucose 59 L Hemoglobin A1c Lactic Acid Calcium Phosphorus Magnesium Alkaline Phosphatase Ammonia Total Protein Albumin Salicylates Acetaminophen Allied health notes reviewed: nursing
[2020-02-15] MEDS: FAMOTIDINE 20 MG/2 ML INJ IV SCH (09:29)
[2020-02-15] MEDS: INSULIN GLARGINE 100 UNITS/ML SUB-Q SCH ×2 (09:30→18:05)
[2020-02-15] MEDS: METOPROLOL TARTRATE 25 MG TAB PO SCH (09:30)
[2020-02-15] MEDS: POTASSIUM CHLORIDE 10 MEQ 10 MEQ/100 ML BAG IV SCH ×4 (09:30→15:44)
--- NOTE | 2020-02-15 09:44 | Progress Note ---
Assessment and Plan tte reviewed - EF 60-65%, mild MR, mild TR. Optimize HR - increase lopressor dosage. D/c heparin gtt and initiate Eliquis 5mg BID. Pt may tx to telemetry from cardiology standpoint. The patient has been seen in conjunction with Dr. Garcia who agrees with the assessment and plan of care. - Patient Problems (1) Atrial fibrillation with RVR Current Visit: Yes Status: Acute Plan to address problem: paroxysmal (2) DKA (diabetic ketoacidoses) Current Visit: Yes Status: Acute (3) BRITTNEY (acute kidney injury) Current Visit: Yes Status: Acute (4) Anemia Current Visit: Yes Status: Acute (5) COPD (chronic obstructive pulmonary disease) Current Visit: Yes Status: Chronic Subjective Date of service: 02/15/20 Principal diagnosis: DKA; Severe metabolic acidosis; A-fib; BRITTNEY; Ac encephalopathy; HTN; COPD Interval history: pt resting in bed, eating breakfast, more alert today. tele reviewed - pt currently in NSR with brief bouts of AFib RVR noted overnight. heparin gtt infusing. Objective Last Vital Signs Temp 98.7 F 02/15/20 04:00 Pulse 78 02/15/20 09:30 Resp 18 02/15/20 08:00 BP 134/83 02/15/20 09:30 Pulse Ox 100 02/14/20 08:20 - Physical Examination General: No Apparent Distress HEENT: Positive: PERRL Neck: Positive: neck supple, trachea midline Cardiac: Positive: Reg Rate and Rhythm, S1/S2 Lungs: Positive: Decreased Breath Sounds Neuro: Positive: Grossly Intact Abdomen: Negative: Tender Skin: Negative: Rash Musculoskeletal: No Pain Extremities: Absent: edema - Labs and Meds CBC 02/15/20 Range/Units 05:06 WBC 13.2 H (4.5-11.0) K/mm3 RBC 2.96 L (3.65-5.03) M/mm3 Hgb 9.6 L (10.1-14.3) gm/dl Hct 28.1 L (30.3-42.9) % Plt Count 171 (140-440) K/mm3 Comprehensive Metabolic Panel 02/14/20 02/14/20 02/14/20 Range/Units 11:21 14:46 19:07 Sodium 141 144 146 H (137-145) mmol/L Potassium 4.7 4.6 4.1 (3.6-5.0) mmol/L Chloride 111.4 H 114.0 H 118.4 H (98-107) mmol/L Carbon Dioxide 6 L* 10 L 15 L (22-30) mmol/L BUN 46 H 44 H 41 H (7-17) mg/dL Creatinine 1.8 H 1.6 H 1.4 H (0.7-1.2) mg/dL Glucose 491 H 284 H 114 H (65-100) mg/dL Calcium 8.1 L 8.7 8.4 (8.4-10.2) mg/dL 02/14/20 02/14/20 02/15/20 Range/Units 20:20 23:01 05:06 Sodium 146 H 145 147 H (137-145) mmol/L Potassium 4.5 3.6 3.1 L (3.6-5.0) mmol/L Chloride 116.9 H 114.6 H 115.0 H (98-107) mmol/L Carbon Dioxide 13 L 17 L 18 L (22-30) mmol/L BUN 42 H 39 H 34 H (7-17) mg/dL Creatinine 1.7 H 1.2 1.1 (0.7-1.2) mg/dL Glucose 120 H 72 82 (65-100) mg/dL Calcium 8.5 8.5 8.5 (8.4-10.2) mg/dL - Imaging and Cardiology EKG: report reviewed, image reviewed Echo: report reviewed - Telemetry EKG Rhythm: Sinus Rhythm - Allied health notes Allied health notes reviewed: nursing
[2020-02-15] MEDS ORDERED: APIXABAN 5 MG TAB PO SCH (10:00)
[2020-02-15] MEDS ORDERED: METOPROLOL TARTRATE 25 MG TAB PO SCH (10:00)
[2020-02-15] MEDS: METOPROLOL TARTRATE 25 MG TAB PO ONE ×2 (11:45→12:33)
[2020-02-15] MEDS: APIXABAN 5 MG TAB PO SCH ×2 (11:59→22:13)
--- NOTE | 2020-02-15 12:57 | Progress Note ---
Assessment and Plan Impression: * Nonoliguric acute kidney injury secondary to prerenal azotemia due to volume depletion * Anion gap metabolic acidosis secondary to DKA * Atrial fibrillation w/ RVR * Anemia * Hypertension * Leukocytosis - trending down Plan: * Renal function continues to improve w/ conservative management * Continue IVF - change to 1/2 NS * Acidosis improved with glycemic control * Cardiology following - rate control/anticoagulation per cardiology * Avoid potential nephrotoxins * Dose medications for renal function Subjective Date of service: 02/15/20 Principal diagnosis: DKA; Severe metabolic acidosis; A-fib; BRITTNEY; Ac encephalopathy; HTN; COPD Interval history: Patient has no complaints. Objective - Vital Signs Vital signs: Vital Signs - 12hr 02/15/20 02/15/20 02/15/20 01:00 01:10 02:00 Temperature Pulse Rate 69 70 74 Respiratory 17 20 Rate Blood Pressure 152/77 180/75 180/75 02/15/20 02/15/20 02/15/20 03:00 04:00 05:00 Temperature 98.7 F Pulse Rate 74 117 H 123 H Respiratory 19 15 14 Rate Blood Pressure 151/69 164/90 158/99 02/15/20 02/15/20 02/15/20 06:00 07:00 08:00 Temperature Pulse Rate 127 H 104 H 133 H Respiratory 19 15 18 Rate Blood Pressure 136/63 141/76 149/78 02/15/20 02/15/20 02/15/20 09:00 09:30 12:33 Temperature Pulse Rate 103 H 78 70 Respiratory 16 Rate Blood Pressure 149/78 134/83 160/76 - General Appearance General appearance: well-developed, well-nourished EENT: ATNC Respiratory: Present: Clear to Ascultation Cardiology: regular Gastrointestinal: normal Neurologic: no focal deficit Psychiatric: cooperative - Lab 02/15/20 05:06 02/15/20 05:06 Most recent lab results Calcium 8.5 mg/dL (8.4-10.2) 02/15/20 05:06 Phosphorus 6.30 mg/dL (2.5-4.5) H D 02/12/20 23:05 Magnesium 2.70 mg/dL (1.7-2.3) H 02/12/20 23:05 Medications & Allergies - Medications Allergies/Adverse Reactions: Allergies No Known Allergies Allergy (Unverified 12/08/14 16:58) Home Medications: Home Medications Medication Instructions Recorded Confirmed Last Taken Type Albuterol Sulfate [Ventolin HFA] 2 puff IH Q4H PRN #1 hfa.aer.ad 12/08/14 Unknown Rx Azithromycin [Zithromax Z-RAHUL] 250 mg PO DAILY #6 tablet 12/08/14 Unknown Rx Benzonatate [Tessalon Perles] 100 mg PO Q8HR #30 capsule 12/08/14 Unknown Rx Acetaminophen/Codeine [Tylenol #3] 1 tab PO Q6H PRN #12 tab 04/21/17 Unknown Rx Furosemide [Lasix] 20 mg PO QDAY #10 tablet 04/21/17 Unknown Rx Insulin Detemir (Nf) [Levemir 40 unit SQ QAM #1 insuln.pen 12/12/17 Unknown Rx Flextouch] Docusate Sodium [Colace] 100 mg PO BID PRN #20 capsule 03/17/18 Unknown Rx Ibuprofen [Motrin] 800 mg PO Q8HR PRN #30 tablet 03/17/18 Unknown Rx traMADoL [Ultram 50 MG tab] 50 mg PO Q6HR PRN #20 tablet 03/17/18 Unknown Rx Active Medications: Generic Name Dose Route Start Last Admin Trade Name Freq PRN Reason Stop Dose Admin Apixaban 5 mg 02/15/20 11:00 02/15/20 11:59 Eliquis PO 5 mg Q12HR IVANA Administration Protocol Dextrose 50 ml 02/14/20 21:24 02/15/20 05:50 D50w (25gm) Syringe IV 20 ml Q30MIN PRN Administration Hypoglycemia Protocol Famotidine 20 mg 02/14/20 10:00 02/15/20 09:29 Pepcid IV 20 mg QDAY IVANA Administration Sodium Bicarbonate 75 meq/ 1,075 mls @ 100 mls/hr 02/14/20 15:00 02/15/20 05:02 Sodium Chloride IV 100 mls/hr DIRECT IVANA Administration Potassium Chloride 10 meq in 100 mls @ 100 mls/hr 02/15/20 09:00 02/15/20 11:43 Kcl 10meq/100ml IV 02/15/20 12:59 100 mls/hr Q1H IVANA Administration Insulin Glargine 20 units 02/15/20 09:00 02/15/20 09:30 Lantus SUB-Q 20 units BIDDIAB IVANA Administration Insulin Human Lispro 0 unit 02/15/20 11:30 02/15/20 11:58 Humalog SUB-Q 3 unit ACHS IVANA Administration Protocol Metoprolol Tartrate 50 mg 02/15/20 22:00 Metoprolol PO BID IVANA Ondansetron HCl 4 mg 02/12/20 22:43 Zofran IV Q8H PRN Nausea And Vomiting Sodium Chloride 10 ml 02/13/20 10:00 02/15/20 09:31 Sodium Chloride Flush Syringe 10 Ml IV 10 ml BID IVANA Administration
[2020-02-15] MEDS: SODIUM CHLORIDE 0.45% 1000 ML 1,000 ML IV SCH (15:43)
[2020-02-15] MEDS: METOPROLOL TARTRATE 50 MG TAB PO SCH (22:12)
[2020-02-16 05:32] LABS: Hematocrit 25.2 % (30.3-42.9); Hemoglobin 8.6 gm/dl (10.1-14.3); Mean Corpuscular HGB Conc 34 % (30-34); Mean Corpuscular Volume 96 fl (79-97); Platelet Count 130 K/mm3 (140-440); Red Blood Count 2.63 M/mm3 (3.65-5.03); Red Cell Distribution Width 14.6 % (13.2-15.2)
[2020-02-16 05:53] LABS: BUN/Creatinine Ratio 27; Blood Urea Nitrogen 24 mg/dL (7-17); Calcium 8.1 mg/dL (8.4-10.2); Hemolysis Index 8
[2020-02-16] MEDS: SODIUM CHLORIDE 0.45% 1000 ML 1,000 ML IV SCH (06:32)
[2020-02-16] MEDS: INSULIN LISPRO 100 UNIT/ML SUB-Q SCH (07:30)
[2020-02-16] MEDS: INSULIN GLARGINE 100 UNITS/ML SUB-Q SCH (08:00)
[2020-02-16] MEDS: DEXTROSE 50% IN WATER (25GM) 50 ML SYRINGE IV PRN (08:02)
--- NOTE | 2020-02-16 09:53 | Progress Note ---
Assessment and Plan Pt maintained NSR overnight. Currently stable cardiac status. Cont present cardiac regimen. Pt may discharge from cardiology standpoint. Recommend follow up in our office with Dr. Garcia within 2 weeks of discharge ([phone]). The patient has been seen in conjunction with Dr. Garcia who agrees with the assessment and plan of care. - Patient Problems (1) Atrial fibrillation with RVR Current Visit: Yes Status: Acute Plan to address problem: paroxysmal (2) DKA (diabetic ketoacidoses) Current Visit: Yes Status: Acute (3) BRITTNEY (acute kidney injury) Current Visit: Yes Status: Acute (4) Anemia Current Visit: Yes Status: Acute (5) COPD (chronic obstructive pulmonary disease) Current Visit: Yes Status: Chronic Subjective Date of service: 02/16/20 Principal diagnosis: DKA; Severe metabolic acidosis; A-fib; BRITTNEY; Ac encephalopathy; HTN; COPD Interval history: pt resting in bed, no current complaints. tele reviewed - pt in NSR overnight. Objective Last Vital Signs Temp 97.7 F 02/16/20 07:56 Pulse 70 02/16/20 07:56 Resp 19 02/16/20 07:56 BP 157/93 02/16/20 07:56 Pulse Ox 99 02/16/20 07:56 - Physical Examination General: No Apparent Distress HEENT: Positive: PERRL Neck: Positive: neck supple, trachea midline Cardiac: Positive: Reg Rate and Rhythm, S1/S2 Lungs: Positive: Decreased Breath Sounds Neuro: Positive: Grossly Intact Abdomen: Negative: Tender Skin: Negative: Rash Musculoskeletal: No Pain Extremities: Absent: edema - Labs and Meds CBC 02/16/20 Range/Units 05:11 WBC 6.4 (4.5-11.0) K/mm3 RBC 2.63 L (3.65-5.03) M/mm3 Hgb 8.6 L (10.1-14.3) gm/dl Hct 25.2 L (30.3-42.9) % Plt Count 130 L (140-440) K/mm3 Comprehensive Metabolic Panel 02/16/20 Range/Units 05:11 Sodium 140 (137-145) mmol/L Potassium 3.3 L (3.6-5.0) mmol/L Chloride 109.5 H (98-107) mmol/L Carbon Dioxide 19 L (22-30) mmol/L BUN 24 H (7-17) mg/dL Creatinine 0.9 (0.7-1.2) mg/dL Glucose 49 L (65-100) mg/dL Calcium 8.1 L (8.4-10.2) mg/dL - Imaging and Cardiology EKG: report reviewed, image reviewed Echo: report reviewed ( EF 60-65%, mild MR, mild TR. ) - Telemetry EKG Rhythm: Sinus Rhythm - Allied health notes Allied health notes reviewed: nursing
[2020-02-16] MEDS ORDERED: POTASSIUM CHLORIDE ER 20 MEQ TAB PO ONE (10:00)
[2020-02-16] MEDS: APIXABAN 5 MG TAB PO SCH (10:09)
[2020-02-16] MEDS: METOPROLOL TARTRATE 50 MG TAB PO SCH (10:09)
[2020-02-16] MEDS: FAMOTIDINE 20 MG/2 ML INJ IV SCH (10:09)
--- NOTE | 2020-02-16 12:04 | Discharge Summary ---
Providers - Providers Date of Admission: 02/12/20 22:15 Attending physician: JUDAH PERDUE MD 02/12/20 22:43 Consult to Dietitian/Nutrition [CONS] Routine Physician Instructions: Reason For Exam: Reason for Consult: Diet education Consult to Physician [CONS] Routine Comment: Consulting Provider: FANI KUMAR Physician Instructions: Reason For Exam: BRITTNEY 02/13/20 08:45 Consult to Physician [CONS] Urgent Comment: Consulting Provider: CRUZ SOTO Physician Instructions: Reason For Exam: critical care management 02/13/20 14:32 Consult to Physician [CONS] Routine Comment: Consulting Provider: TRUDI JORDAN Physician Instructions: Reason For Exam: afib with rvr 02/15/20 09:48 Physical Therapy Evaluation and Treat [CONS] Routine Comment: Reason For Exam: Debility 02/15/20 16:15 Occupational Therapy Evaluate and Treat [CONS] Routine Comment: Reason For Exam: Debility Physical Therapy Evaluation and Treat [CONS] Routine Comment: Reason For Exam: Debility 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 Patient unable to give a very good history as she is confused and most of the history was gotten from the emergency room physician. However patient was able to state that she was feeling very weak and having some abdominal pain. She denies any headache, no chest pain or shortness of breath but has been having some nausea and vomiting. Denies any diarrhea. Denies any hematuria or dysuria. Work-up in the emergency room reveals blood glucose greater than 1000 and patient was apparently in DKA. She was started on IV fluid and also placed on insulin drip. 02/14: DKA, metabolic acidosis resolved, appears on monitor to have reverted to SR. will transfer to telemetry. Discussed with tableman. Will transition to insulin regimen subcu and discontinue insulin drip which has already been done. Will defer to cardiology about discontinuation of heparin drip. 02/15: Patient remains in sinus rhythm blood sugar better controlled following hypoglycemia noted this morning. I did have extensive conversation with the patient who at this point is of sound mind about her management going forward and medication compliance. Home health has been arranged for the patient at this time. Patient will need PT OT evaluation and follow-up with cardiology outpatient. DKA-resolved BRITTNEY with vasomotor nephropathy nonoliguric Metabolic acidosis again secondary to DKA AFib with RVR Hypertensive urgency following initial hypotension COPD Dehydration Leukocytosis Anemia Hypotension Disposition: [id number] HOME UNDER HOME HLTH Time spent for discharge: 35 mins Core Measure Documentation - Palliative Care Palliative Care/ Comfort Measures: Not Applicable - Core Measures Any of the following diagnoses?: none Exam - Physical Exam Narrative exam: General appearance: Present: No distress sitting up at bedside, well-nourished. - EENT Eyes: Present: PERRL, EOM intact ENT: hearing intact, clear oral mucosa, dentition normal - Neck Neck: Present: supple, normal ROM - Respiratory Respiratory effort: normal Respiratory: bilateral: CTA - Cardiovascular Rhythm: regular Heart Sounds: Present: S1 & S2 - Extremities Extremities: no ischemia, pulses intact, pulses symmetrical, No edema, Full ROM Peripheral Pulses: within normal limits - Abdominal General gastrointestinal: Present: soft, non-tender, non-distended, normal bowel sounds - Integumentary Integumentary: Present: clear, warm, dry - Musculoskeletal Musculoskeletal: Moves all extremities - Psychiatric Psychiatric: cooperative, other - Neurologic Neurologic: CNII-XII intact, moves all extremities - Constitutional Vitals: Temp Pulse Resp BP Pulse Ox 97.7 F 70 19 157/93 99 02/16/20 07:56 02/16/20 07:56 02/16/20 07:56 02/16/20 07:56 02/16/20 07:56 Plan Activity: advance as tolerated, fall precautions Diet: low fat, diabetic Special Instructions: record daily weights, record daily BP diary, record blood sugar diary, physical therapy, occupational therapy Follow up with: PRIMARY CARE, [Primary Care Provider] - 3-5 Days DYLAN DODD MD [Staff Physician] - 14 Days Prescriptions: Apixaban [Eliquis] 5 mg PO Q12HR #60 tablet Insulin Glargine [Lantus VIAL] 15 units SUB-Q BIDDIAB #100 units Metoprolol [Lopressor TAB] 50 mg PO BID #60 tablet Famotidine [Pepcid] 20 mg PO DAILY #30 tablet
[2020-02-16 12:53] VITALS: BP 149/82
[2020-02-16] MEDS ORDERED: INSULIN GLARGINE 100 UNITS/ML SUB-Q SCH (17:00)
[2020-02-17] MEDS ORDERED: FAMOTIDINE 20 MG TAB PO SCH (10:00)
== END 2020-02-16 16:56 | disposition home or self-care (01) | DRG 637 ==
LOC: ED 20:10 → CC1 22:15 → 4A 02-15 15:55
PROVIDERS: ADMIT Internal Medicine Geriatric Medicine; ATTEND Internal Medicine
PROC: 3E0234Z Introduction of Serum, Toxoid and Vaccine into Muscle, Percutaneous Approach (ICD-10-PCS; principal; 2020-02-13)
DX: E11.10 Type 2 diabetes mellitus with ketoacidosis without coma (principal); N17.0 Acute kidney failure with tubular necrosis; R65.10 Systemic inflammatory response syndrome (SIRS) of non-infectious origin without acute organ dysfunction; E72.20 Disorder of urea cycle metabolism, unspecified; E86.0 Dehydration; Z23 Encounter for immunization; J44.9 Chronic obstructive pulmonary disease, unspecified; E78.5 Hyperlipidemia, unspecified; Z90.49 Acquired absence of other specified parts of digestive tract; I10 Essential (primary) hypertension; I48.91 Unspecified atrial fibrillation; I95.9 Hypotension, unspecified; D64.9 Anemia, unspecified; D72.829 Elevated white blood cell count, unspecified; E86.9 Volume depletion, unspecified; I16.0 Hypertensive urgency; R10.9 Unspecified abdominal pain; Z79.4 Long term (current) use of insulin
CPT/HCPCS: 36415; 70450; 71045; 74176; 80048; 80053; 80320; 81001; 82140; 82550; 82805; 82947; 82962; 83036; 83735; 84100; 84443; 85014; 85018; 85025; 85027; 85049; 85520; 85610; 85730; 87040; 87086; 90471; 90686; 90732; 93005; 93306; G0378; G0008; G0009; G0480; J0282; J0360; J0696; J1644; J1815; J3480; J7030; J7060

== ENCOUNTER 2020-04-08 18:13 | Inpatient (IN) | payer OTHER ==
[2020-04-08] MEDS ORDERED: INSULIN REGULAR, HUMAN 100 UNITS/1 ML IV ONE (20:37)
[2020-04-08] MEDS ORDERED: DEXTROSE 50% IN WATER (25GM) 50 ML SYRINGE IV PRN (20:37)
[2020-04-08] MEDS ORDERED: SODIUM CHLORIDE 0.9% 1000 ML 1,000 ML IV ONE (20:39)
[2020-04-08] MEDS ORDERED: SODIUM CHLORIDE 0.9% 1000 ML 1,000 ML ONE ×3 (20:41→23:35)
--- NOTE | 2020-04-08 20:54 | XRay Report ---
CHEST 1 VIEW 04/08/2020 8:31 PM INDICATION / CLINICAL INFORMATION: Lightheadedness/Dizziness. COMPARISON: 04/02/2020 FINDINGS: SUPPORT DEVICES: None. HEART / MEDIASTINUM: No significant abnormality. LUNGS / PLEURA: No significant pulmonary or pleural abnormality. No pneumothorax. ADDITIONAL FINDINGS: No significant additional findings. IMPRESSION: 1. No acute findings. Signer Name: Teo Jo MD Signed: 04/08/2020 8:50 PM Workstation Name: [id number]
[2020-04-08 21:02] LABS: INR 1.35 (0.87-1.13)
[2020-04-08 21:15] LABS: Blood Urea Nitrogen TNR mg/dL (7-17)
[2020-04-08 21:16] LABS: Alanine Aminotransferase TNR units/L (7-56); Albumin TNR g/dL (3.9-5); BUN/Creatinine Ratio TNR; Calcium TNR mg/dL (8.4-10.2)
[2020-04-08 21:17] LABS: Hemolysis Index TNR
[2020-04-08 21:18] LABS: Mean Corpuscular HGB Conc 27 % (30-34); Platelet Count 272 K/mm3 (140-440); Red Blood Count 3.13 M/mm3 (3.65-5.03); Red Cell Distribution Width 15.3 % (13.2-15.2)
[2020-04-08 21:24] LABS: Hematocrit 37.4 % (30.3-42.9); Hemoglobin 10.1 gm/dl (10.1-14.3); Mean Corpuscular Volume 119 fl (79-97)
[2020-04-08 21:34] LABS: ABG Base Excess -28.7 mmol/L (-2.0-3.0); ABG Methemoglobin 1.1 % (0.0-1.5); ABG Oxygen Saturation 98.2 % (95.0-99.0); ABG PCO2 10.2 mm Hg; ABG PO2 160.7 mm Hg (80.0-90.0)
[2020-04-08 21:37] LABS: Basophils % (Manual) 0 % (0.0-1.8); Eosinophils % (Manual) 0 % (0.0-4.3); RBC Morphology Normal; Total Cells Counted 100
[2020-04-08 21:37] LABS: Calcium 8.9 mg/dL (8.4-10.2)
[2020-04-08 21:42] LABS: ABG PH 6.911 pH Units (7.350-7.450)
[2020-04-08] MEDS: INSULIN REGULAR, HUMAN 100 UNITS in SODIUM CHLORIDE 0.9% 99 ML IV SCH (21:50)
[2020-04-08] MEDS ORDERED: SODIUM BICARB 8.4% 50 MEQ/50 ML SYRINGE IV ONE ×2 (21:50→21:51)
--- NOTE | 2020-04-08 22:14 | Emergency Department Report ---
ED General Adult HPI - General Chief complaint: Hyperglycemia Stated complaint: HYPERGLYCEMIA Time Seen by Provider: 04/08/20 20:00 Source: EMS Mode of arrival: Stretcher Limitations: Physical Limitation - History of Present Illness Initial comments: 70-year-old -[place] Citizen female presents to ED with generalized weakness, lethargy, high glucose. History of diabetes, type II, noncompliant with medications. Denies any chest pain, shortness of breath, nausea, vomiting. - Related Data Previous Rx's Medication Instructions Recorded Last Taken Type Apixaban [Eliquis] 5 mg PO Q12HR #60 tablet 04/04/20 Unknown Rx Aspirin [Aspirin BABY CHEW TAB] 81 mg PO QDAY #90 04/04/20 Unknown Rx AtorvaSTATin 10 mg PO DAILY #90 tablet 04/04/20 Unknown Rx Famotidine [Pepcid] 20 mg PO DAILY #30 tablet 04/04/20 Unknown Rx Insulin Glargine [Lantus VIAL] 25 units SUB-Q QAM #5 pen 04/04/20 Unknown Rx Janumet 50-500 mg Tablet 500 mg PO BID #60 04/04/20 Unknown Rx Lisinopril 12.5 units PO DAILY #90 04/04/20 Unknown Rx Lispro Insulin [HumaLOG] 5 unit SUB-Q AC #5 pen 04/04/20 Unknown Rx Metoprolol [Lopressor TAB] 50 mg PO BID #60 tablet 04/04/20 Unknown Rx Allergies Allergy/AdvReac Type Severity Reaction Status Date / Time iodine Allergy Rash Verified 04/02/20 16:43 shellfish derived Allergy Rash Verified 04/02/20 16:43 ED Review of Systems ROS: Stated complaint: HYPERGLYCEMIA Other details as noted in HPI Comment: All other systems reviewed and negative Respiratory: denies: cough, orthopnea Cardiovascular: denies: chest pain, palpitations, dyspnea on exertion Gastrointestinal: abdominal pain, nausea Neurological: weakness. denies: numbness ED Past Medical Hx - Past Medical History Previous Medical History?: Yes Hx Hypertension: Yes Hx Diabetes: Yes Additional medical history: Hypercholesterolemia - Surgical History Hx Cholecystectomy: Yes Additional Surgical History: Right side lymph node excision - Social History Smoking Status: Current Some Day Smoker Substance Use Type: None - Medications Home Medications: Home Medications Medication Instructions Recorded Confirmed Last Taken Type Apixaban [Eliquis] 5 mg PO Q12HR #60 tablet 04/04/20 Unknown Rx Aspirin [Aspirin BABY CHEW TAB] 81 mg PO QDAY #90 04/04/20 Unknown Rx AtorvaSTATin 10 mg PO DAILY #90 tablet 04/04/20 Unknown Rx Famotidine [Pepcid] 20 mg PO DAILY #30 tablet 04/04/20 Unknown Rx Insulin Glargine [Lantus VIAL] 25 units SUB-Q QAM #5 pen 04/04/20 Unknown Rx Janumet 50-500 mg Tablet 500 mg PO BID #60 04/04/20 Unknown Rx Lisinopril 12.5 units PO DAILY #90 04/04/20 Unknown Rx Lispro Insulin [HumaLOG] 5 unit SUB-Q AC #5 pen 04/04/20 Unknown Rx Metoprolol [Lopressor TAB] 50 mg PO BID #60 tablet 04/04/20 Unknown Rx ED Physical Exam - General Limitations: Physical Limitation General appearance: anxious, lethargic - Head Head exam: Present: atraumatic, normocephalic - Eye Eye exam: Present: normal appearance, PERRL, EOMI Pupils: Present: normal accommodation - ENT ENT exam: Present: normal exam, normal orophraynx - Neck Neck exam: Present: other (JVD MODERATE) - Cardiovascular Cardiovascular Exam: Present: regular rate, normal rhythm, normal heart sounds - GI/Abdominal GI/Abdominal exam: Present: soft, normal bowel sounds - Extremities Exam Extremities exam: Present: normal inspection - Back Exam Back exam: Present: muscle spasm - Neurological Exam Neurological exam: Present: altered (LETHARGIC) - Skin Skin exam: Present: warm ED Course Vital Signs 04/08/20 04/08/20 19:25 21:37 Temperature 97.6 F 90.2 F L Pulse Rate 77 74 Respiratory 23 21 Rate Blood Pressure 115/51 141/46 [Left] O2 Sat by Pulse 100 100 Oximetry ED Medical Decision Making - Lab Data Result diagrams: 04/08/20 21:05 04/08/20 23:09 - EKG Data -: EKG Interpreted by Me EKG shows normal: sinus rhythm Rate: normal - EKG Data When compared to previous EKG there are: no significant change 04/09/20 01:07 SINUS RHYTHM RATE 74 PROLONG QT INTERVAL - Radiology Data Radiology results: report reviewed - Medical Decision Making 1. HYPERGLYCEMIA: BOLUS 20 UNITS IV INSULIN, START 2L NS, ACIDOTIC, INSULIN DRIP STARTED ADMIT TO CCU 2. ACIDOSIS: DKA, 2 AMP OF BICARB GIVEN D/T BICARB OF 2, IMPROVED, PT RESPIRATORY RATE, ADMIT TO CC 3. DKA: SEE ONE AND 2. ADMIT TO CCU, ON INSULIN DRIP, 2 AMP OF BICARB GIVEN D/T LOW PH, LOW PCO2, ?COMPLIANCE. Critical Care Time: Yes Critical care time in (mins) excluding proc time.: 45 Critical care attestation.: If time is entered above; I have spent that time in minutes in the direct care of this critically ill patient, excluding procedure time. Critical Care Time: 45 DKA: INSULIN DRIP STARTED, NO IV ACCESS, RIGHT EJ PLACED BY ER M.D ED Disposition Clinical Impression: DKA (diabetic ketoacidoses) Qualifiers: Diabetes mellitus type: type 2 Diabetes mellitus complication detail: without coma Qualified Code(s): E11.10 - Type 2 diabetes mellitus with ketoacidosis without coma Disposition: OP ADMIT IP TO THIS HOSP Is pt being admited?: Yes Does the pt Need Aspirin: No Condition: Critical
[2020-04-08] MEDS ORDERED: ONDANSETRON 4 MG/2 ML INJ IV PRN (22:28)
--- NOTE | 2020-04-08 22:37 | History and Physical Report ---
History of Present Illness Date of examination: 04/08/20 Date of admission: 04/08/2020 Chief complaint: Generalized weakness Elevated blood glucose History of present illness: 70-year-old -[place] female with known history of diabetes mellitus, hyperlipidemia and hypertension presenting to the emergency room today complaining of generalized body weakness lethargy and elevated blood glucose. Patient is noncompliant with her medications. She denies any fever or chills, no nausea vomiting, no diarrhea, no abdominal pain, no hematuria or dysuria, no headache or dizziness. Work-up in the emergency room today reveals a blood glucose of 1100. Patient was found to be in DKA. She is subsequently commenced on IV fluid and insulin drip. Patient was quite lethargic and less responsive during this history and physical. She was also found to be hypothermic and placed on a Elisabet hugger. Past History Past Medical History: diabetes, hypertension, hyperlipidemia Past Surgical History: cholecystectomy, Other (Right-sided lymph nodes excision) Social history: smoking (Current daily smoker) Family history: no significant family history Medications and Allergies Allergies Allergy/AdvReac Type Severity Reaction Status Date / Time iodine Allergy Rash Verified 04/02/20 16:43 shellfish derived Allergy Rash Verified 04/02/20 16:43 Home Medications Medication Instructions Recorded Confirmed Last Taken Type Apixaban [Eliquis] 5 mg PO Q12HR #60 tablet 04/04/20 Unknown Rx Aspirin [Aspirin BABY CHEW TAB] 81 mg PO QDAY #90 04/04/20 Unknown Rx AtorvaSTATin 10 mg PO DAILY #90 tablet 04/04/20 Unknown Rx Famotidine [Pepcid] 20 mg PO DAILY #30 tablet 04/04/20 Unknown Rx Insulin Glargine [Lantus VIAL] 25 units SUB-Q QAM #5 pen 04/04/20 Unknown Rx Janumet 50-500 mg Tablet 500 mg PO BID #60 04/04/20 Unknown Rx Lisinopril 12.5 units PO DAILY #90 04/04/20 Unknown Rx Lispro Insulin [HumaLOG] 5 unit SUB-Q AC #5 pen 04/04/20 Unknown Rx Metoprolol [Lopressor TAB] 50 mg PO BID #60 tablet 04/04/20 Unknown Rx Active Meds: Active Medications Dextrose (D50w (25gm) Syringe) 0 ml IV Q30MIN PRN; Protocol PRN Reason: Hypoglycemia Insulin Human Regular 100 (units/ Sodium Chloride) 100 mls @ 1 mls/hr IV TITR IVANA; Protocol Last Admin: 04/08/20 21:50 Dose: 8 units/hr, 8 mls/hr Documented by: Sodium Chloride (Nacl 0.9% 1000 Ml) 1,000 mls @ 150 mls/hr IV DIRECT IVANA Potassium Chloride/Dextrose/Sod Cl (D5w/0.45% Nacl/Kcl 20 Meq) 20 meq in 1,000 mls @ 125 mls/hr IV DIRECT IVANA Ondansetron HCl (Zofran) 4 mg IV Q8H PRN PRN Reason: Nausea And Vomiting Sodium Chloride (Sodium Chloride Flush Syringe 10 Ml) 10 ml IV BID IVANA Sodium Chloride (Sodium Chloride Flush Syringe 10 Ml) 10 ml IV PRN PRN PRN Reason: LINE FLUSH Review of Systems ROS unobtainable: due to mental status Exam - Constitutional Vitals: Temp Pulse Resp BP Pulse Ox 90.2 F L 74 21 141/46 100 04/08/20 21:37 04/08/20 21:37 04/08/20 21:37 04/08/20 21:37 04/08/20 21:37 General appearance: Present: no acute distress, well-nourished - EENT Eyes: Present: PERRL, EOM intact. Absent: scleral icterus ENT: hearing intact, clear oral mucosa, dentition normal - Neck Neck: Present: supple, normal ROM - Respiratory Respiratory effort: normal Respiratory: bilateral: CTA - Cardiovascular Rhythm: regular Heart Sounds: Present: S1 & S2. Absent: gallop, systolic murmur, diastolic murmur, rub - Extremities Extremities: no ischemia, pulses intact, pulses symmetrical, No edema, Full ROM Peripheral Pulses: within normal limits - Abdominal General gastrointestinal: Present: soft, non-tender, non-distended, normal bowel sounds. Absent: mass - Integumentary Integumentary: Present: clear, warm, dry, pale (Mild pallor) - Musculoskeletal Musculoskeletal: strength equal bilaterally - Psychiatric Psychiatric: cooperative, other (Patient appears slightly confused) - Neurologic Neurologic: CNII-XII intact, no focal deficits, moves all extremities HEART Score - HEART Score Troponin: Troponin T TNR 04/08/20 20:07 Results - Labs CBC & Chem 7: 04/09/20 03:27 04/09/20 05:08 Labs: Abnormal lab results 04/08/20 04/08/20 04/08/20 Range/Units 19:37 19:39 20:07 WBC (4.5-11.0) K/mm3 RBC (3.65-5.03) M/mm3 MCV (79-97) fl MCHC (30-34) % RDW (13.2-15.2) % Seg Neuts % (Manual) (40.0-70.0) % Lymphocytes % (Manual) (13.4-35.0) % Monocytes % (Manual) (0.0-7.3) % Seg Neutrophils # Man (1.8-7.7) K/mm3 Monocytes # (Manual) (0.0-0.8) K/mm3 PT 16.4 H (12.2-14.9) Sec. INR 1.35 H (0.87-1.13) ABG pH (7.350-7.450) pH Units ABG pO2 (80.0-90.0) mm Hg ABG HCO3 (20.0-26.0) mmol/L ABG Base Excess (-2.0-3.0) mmol/L ABG Hemoglobin (12.0-16.0) gm/dl Sodium (137-145) mmol/L Potassium (3.6-5.0) mmol/L Chloride (98-107) mmol/L Carbon Dioxide (22-30) mmol/L BUN (7-17) mg/dL Creatinine (0.7-1.2) mg/dL Glucose 1148 H* (65-100) mg/dL POC Glucose > 500 H (70-105) Phosphorus (2.5-4.5) mg/dL Magnesium (1.7-2.3) mg/dL 04/08/20 04/08/20 04/08/20 Range/Units 20:58 20:58 21:05 WBC 14.4 H (4.5-11.0) K/mm3 RBC 3.13 L (3.65-5.03) M/mm3 MCV 119 H (79-97) fl MCHC 27 L (30-34) % RDW 15.3 H (13.2-15.2) % Seg Neuts % (Manual) 77.0 H (40.0-70.0) % Lymphocytes % (Manual) 13.0 L (13.4-35.0) % Monocytes % (Manual) 10.0 H (0.0-7.3) % Seg Neutrophils # Man 11.1 H (1.8-7.7) K/mm3 Monocytes # (Manual) 1.4 H (0.0-0.8) K/mm3 PT (12.2-14.9) Sec. INR (0.87-1.13) ABG pH (7.350-7.450) pH Units ABG pO2 (80.0-90.0) mm Hg ABG HCO3 (20.0-26.0) mmol/L ABG Base Excess (-2.0-3.0) mmol/L ABG Hemoglobin (12.0-16.0) gm/dl Sodium 130 L (137-145) mmol/L Potassium 6.8 H* (3.6-5.0) mmol/L Chloride 91.2 L (98-107) mmol/L Carbon Dioxide 2 L* (22-30) mmol/L BUN 31 H (7-17) mg/dL Creatinine 2.0 H (0.7-1.2) mg/dL Glucose 1269 H* (65-100) mg/dL POC Glucose (70-105) Phosphorus 9.40 H (2.5-4.5) mg/dL Magnesium 2.60 H (1.7-2.3) mg/dL 04/08/20 Range/Units 21:17 WBC (4.5-11.0) K/mm3 RBC (3.65-5.03) M/mm3 MCV (79-97) fl MCHC (30-34) % RDW (13.2-15.2) % Seg Neuts % (Manual) (40.0-70.0) % Lymphocytes % (Manual) (13.4-35.0) % Monocytes % (Manual) (0.0-7.3) % Seg Neutrophils # Man (1.8-7.7) K/mm3 Monocytes # (Manual) (0.0-0.8) K/mm3 PT (12.2-14.9) Sec. INR (0.87-1.13) ABG pH 6.911 L* (7.350-7.450) pH Units ABG pO2 160.7 H (80.0-90.0) mm Hg ABG HCO3 2.0 L (20.0-26.0) mmol/L ABG Base Excess -28.7 L (-2.0-3.0) mmol/L ABG Hemoglobin 9.0 L (12.0-16.0) gm/dl Sodium (137-145) mmol/L Potassium (3.6-5.0) mmol/L Chloride (98-107) mmol/L Carbon Dioxide (22-30) mmol/L BUN (7-17) mg/dL Creatinine (0.7-1.2) mg/dL Glucose (65-100) mg/dL POC Glucose (70-105) Phosphorus (2.5-4.5) mg/dL Magnesium (1.7-2.3) mg/dL Assessment and Plan - Patient Problems (1) DKA (diabetic ketoacidoses) Current Visit: Yes Status: Acute Qualifiers: Diabetes mellitus type: type 2 Diabetes mellitus complication detail: without coma Qualified Code(s): E11.10 - Type 2 diabetes mellitus with ketoacidosis without coma Plan to address problem: Patient placed on insulin drip and IV fluid. Will monitor blood glucose according to protocol. (2) Hyperkalemia Current Visit: No Status: Acute Plan to address problem: We will continue to monitor chemistry while on the insulin drip and IV fluid. (3) BRITTNEY (acute kidney injury) Current Visit: No Status: Acute Plan to address problem: Possibly secondary to volume depletion. We will continue to monitor BUN and creatinine and continue IV fluid. (4) Anemia Current Visit: No Status: Acute Plan to address problem: Probably chronic. Will monitor CBC. (5) Hyponatremia Current Visit: No Status: Acute Plan to address problem: Possibly secondary to DKA. Will monitor chemistry (6) Hyperlipidemia Current Visit: No Status: Chronic Qualifiers: Hyperlipidemia type: mixed hyperlipidemia Qualified Code(s): E78.2 - Mixed hyperlipidemia Plan to address problem: We will resume routine home medications once patient able to tolerate oral intake. Will monitor lipid profile . (7) Hypertension Current Visit: No Status: Chronic Qualifiers: Hypertension type: essential hypertension Qualified Code(s): I10 - Essential (primary) hypertension Plan to address problem: We will monitor vital signs closely. We will resume routine antihypertensive medications. (8) Noncompliance with medication regimen Current Visit: No Status: Chronic Plan to address problem: Counseled on compliance with medications. (9) DVT prophylaxis Current Visit: No Status: Chronic Plan to address problem: We will place patient on subcutaneous heparin. (10) Full code status Current Visit: No Status: Acute
[2020-04-08] MEDS ORDERED: D5W/0.45% NACL/KCL 20 MEQ 20 MEQ/1,000 ML BAG IV SCH (23:00)
[2020-04-08] MEDS ORDERED: SODIUM CHLORIDE 0.9% 1000 ML 1,000 ML IV SCH (23:15)
[2020-04-08 23:28] LABS: Calcium 8.6 mg/dL (8.4-10.2)
[2020-04-09] MEDS: SODIUM CHLORIDE 0.9% 1000 ML 1,000 ML IV SCH ×2 (01:00→08:10)
[2020-04-09 01:58] LABS: Calcium 8.2 mg/dL (8.4-10.2)
[2020-04-09 03:40] LABS: Mean Corpuscular HGB Conc 30 % (30-34); Mean Corpuscular Volume 108 fl (79-97); Platelet Count 231 K/mm3 (140-440); Red Cell Distribution Width 14.7 % (13.2-15.2)
[2020-04-09 03:51] LABS: Hematocrit 33.3 % (30.3-42.9); Hemoglobin 9.9 gm/dl (10.1-14.3)
[2020-04-09 03:53] LABS: INR 1.12 (0.87-1.13)
[2020-04-09] MEDS: INSULIN REGULAR, HUMAN 100 UNITS in SODIUM CHLORIDE 0.9% 99 ML IV SCH (04:00)
[2020-04-09] MEDS ORDERED: SODIUM BICARB 8.4% 50 MEQ/50 ML SYRINGE IV ONE (04:02)
[2020-04-09 04:12] LABS: Calcium 8.5 mg/dL (8.4-10.2)
[2020-04-09 04:38] LABS: Bacteria,Urine 1+ /HPF (Negative); Bilirubin,Urine NEG (Negative); Blood,Urine LG (Negative); Color,Urine Yellow (Yellow); Urobilinogen,Urine < 2.0 mg/dL (<2.0)
[2020-04-09] MEDS ORDERED: SODIUM CHLORIDE 0.9% IV ONE (05:00)
[2020-04-09] MEDS ORDERED: SODIUM BICARBONATE IV ONE (05:00)
[2020-04-09 05:48] LABS: Anisocytosis Few; Basophils % (Manual) 0 % (0.0-1.8); Ovalocytes Rare; Platelet Estimate Consistent w Auto; Total Cells Counted 100
[2020-04-09 06:23] LABS: Calcium 8.6 mg/dL (8.4-10.2)
[2020-04-09] MEDS ORDERED: SODIUM CHLORIDE 0.9% 1000 ML 1,000 ML ONE ×2 (08:06→18:47)
--- NOTE | 2020-04-09 09:09 | Progress Note ---
Assessment and Plan Assessment and plan: -- DKA (diabetic ketoacidoses) Current Visit: Yes Status: Acute DKA pathway initiated ,on insulin drip and IV fluid. Monitor electrolytes and adjust Diabetic education, nutrition education Monitor anion gap and bicarb levels DC insulin drip and transition to long-acting insulin -- Hyperkalemia Current Visit: No Status: Acute Treated, slightly improved Recheck electrolytes --Severe metabolic acidosis; Current Visit: No Status: Acute Bicarb drip, closely monitor bicarb --BRITTNEY (acute kidney injury) Current Visit: No Status: Acute Vasomotor nephropathy and secondary to volume depletion. Closely monitor renal function, avoid nephrotoxins Nephrology consult if no improvement -- Anemia Current Visit: No Status: Acute Probably chronic. Will monitor CBC. --Hyponatremia Current Visit: No Status: Acute Possibly secondary to DKA. Will monitor chemistry --Hyperlipidemia Current Visit: No Status: Chronic Statin, low-cholesterol diet -- Hypertension Current Visit: No Status: Chronic resume routine antihypertensive medications. -- Noncompliance with medication regimen Current Visit: No Status: Chronic Counseled on compliance with medications. --DVT prophylaxis Current Visit: No Status: Chronic We will place patient on subcutaneous heparin. --Full code status Current Visit: No Status: Acute We will monitor closely and adjust management as needed Plan of care reviewed with the patient and nurse History Interval history: I have seen and examined the patient at the bedside Patient's chart medications reviewed Admitted with DKA on insulin drip per DKA protocol Patient is dehydrated and cachectic Vital signs noted Hospitalist Physical - Constitutional Vitals: Temp Pulse Resp BP Pulse Ox 97.8 F 78 20 158/59 99 04/09/20 06:50 04/09/20 08:17 04/09/20 08:17 04/09/20 08:17 04/09/20 08:17 General appearance: Present: mild distress, well-nourished, other (Dehydrated) - EENT Eyes: Present: PERRL, EOM intact - Neck Neck: Present: supple, normal ROM - Respiratory Respiratory effort: normal Respiratory: bilateral: diminished, negative: rales, rhonchi, wheezing - Cardiovascular Rhythm: regular Heart Sounds: Present: S1 & S2 - Extremities Extremities: no ischemia, No edema - Abdominal General gastrointestinal: soft, non-tender, non-distended, normal bowel sounds - Integumentary Integumentary: Present: clear, warm - Psychiatric Psychiatric: appropriate mood/affect, cooperative - Neurologic Neurologic: moves all extremities HEART Score - HEART Score Troponin: Troponin T TNR 04/08/20 20:07 Results - Labs CBC & Chem 7: 04/09/20 03:27 04/09/20 05:08 Labs: Laboratory Last Values WBC 15.0 K/mm3 (4.5-11.0) H 04/09/20 03:27 RBC 3.10 M/mm3 (3.65-5.03) L 04/09/20 03:27 Hgb 9.9 gm/dl (10.1-14.3) L 04/09/20 03:27 Hct 33.3 % (30.3-42.9) 04/09/20 03:27 MCV 108 fl (79-97) H 04/09/20 03:27 MCH 32 pg (28-32) 04/09/20 03:27 MCHC 30 % (30-34) 04/09/20 03:27 RDW 14.7 % (13.2-15.2) 04/09/20 03:27 Plt Count 231 K/mm3 (140-440) 04/09/20 03:27 Lymph % (Auto) Real Estate Specialist 04/08/20 21:05 Chase % (Auto) Real Estate Specialist 04/08/20 21:05 Eos % (Auto) Real Estate Specialist 04/08/20 21:05 Baso % (Auto) Real Estate Specialist 04/08/20 21:05 Lymph # Real Estate Specialist 04/08/20 21:05 Chase # Real Estate Specialist 04/08/20 21:05 Eos # Real Estate Specialist 04/08/20 21:05 Baso # Real Estate Specialist 04/08/20 21:05 Add Manual Diff Complete 04/09/20 03:27 Total Counted 100 04/09/20 03:27 Seg Neutrophils % Real Estate Specialist 04/08/20 21:05 Seg Neuts % (Manual) 89.0 % (40.0-70.0) H 04/09/20 03:27 Band Neutrophils % 0 % 04/09/20 03:27 Lymphocytes % (Manual) 6.0 % (13.4-35.0) L 04/09/20 03:27 Reactive Lymphs % (Man) 0 % 04/09/20 03:27 Monocytes % (Manual) 4.0 % (0.0-7.3) 04/09/20 03:27 Eosinophils % (Manual) 1.0 % (0.0-4.3) 04/09/20 03:27 Basophils % (Manual) 0 % (0.0-1.8) 04/09/20 03:27 Metamyelocytes % 0 % 04/09/20 03:27 Myelocytes % 0 % 04/09/20 03:27 Promyelocytes % 0 % 04/09/20 03:27 Blast Cells % 0 % 04/09/20 03:27 Nucleated RBC % Not Reportable 04/09/20 03:27 Seg Neutrophils # Real Estate Specialist 04/08/20 21:05 Seg Neutrophils # Man 13.4 K/mm3 (1.8-7.7) H 04/09/20 03:27 Band Neutrophils # 0.0 K/mm3 04/09/20 03:27 Lymphocytes # (Manual) 0.9 K/mm3 (1.2-5.4) L 04/09/20 03:27 Abs React Lymphs (Man) 0.0 K/mm3 04/09/20 03:27 Monocytes # (Manual) 0.6 K/mm3 (0.0-0.8) 04/09/20 03:27 Eosinophils # (Manual) 0.2 K/mm3 (0.0-0.4) 04/09/20 03:27 Basophils # (Manual) 0.0 K/mm3 (0.0-0.1) 04/09/20 03:27 Metamyelocytes # 0.0 K/mm3 04/09/20 03:27 Myelocytes # 0.0 K/mm3 04/09/20 03:27 Promyelocytes # 0.0 K/mm3 04/09/20 03:27 Blast Cells # 0.0 K/mm3 04/09/20 03:27 WBC Morphology Not Reportable 04/09/20 03:27 Hypersegmented Neuts Not Reportable 04/09/20 03:27 Hyposegmented Neuts Not Reportable 04/09/20 03:27 Hypogranular Neuts Not Reportable 04/09/20 03:27 Smudge Cells Not Reportable 04/09/20 03:27 Toxic Granulation Not Reportable 04/09/20 03:27 Toxic Vacuolation Not Reportable 04/09/20 03:27 Dohle Bodies Not Reportable 04/09/20 03:27 Pelger-Huet Anomaly Not Reportable 04/09/20 03:27 Nadine Rods Not Reportable 04/09/20 03:27 Platelet Estimate Consistent w auto 04/09/20 03:27 Clumped Platelets Not Reportable 04/09/20 03:27 Plt Clumps, EDTA Not Reportable 04/09/20 03:27 Large Platelets Not Reportable 04/09/20 03:27 Giant Platelets Not Reportable 04/09/20 03:27 Platelet Satelliting Not Reportable 04/09/20 03:27 Plt Morphology Comment Not Reportable 04/09/20 03:27 RBC Morphology Not Reportable 04/09/20 03:27 Dimorphic RBCs Not Reportable 04/09/20 03:27 Polychromasia Not Reportable 04/09/20 03:27 Hypochromasia Not Reportable 04/09/20 03:27 Poikilocytosis Not Reportable 04/09/20 03:27 Anisocytosis Few 04/09/20 03:27 Microcytosis Not Reportable 04/09/20 03:27 Macrocytosis Not Reportable 04/09/20 03:27 Spherocytes Not Reportable 04/09/20 03:27 Pappenheimer Bodies Not Reportable 04/09/20 03:27 Sickle Cells Not Reportable 04/09/20 03:27 Target Cells Not Reportable 04/09/20 03:27 Tear Drop Cells Not Reportable 04/09/20 03:27 Ovalocytes Rare 04/09/20 03:27 Helmet Cells Not Reportable 04/09/20 03:27 Grossman-Morland Bodies Not Reportable 04/09/20 03:27 [place] Rings Not Reportable 04/09/20 03:27 Mandie Cells Not Reportable 04/09/20 03:27 Bite Cells Not Reportable 04/09/20 03:27 Crenated Cell Not Reportable 04/09/20 03:27 Elliptocytes Not Reportable 04/09/20 03:27 Acanthocytes (Spur) Not Reportable 04/09/20 03:27 Rouleaux Not Reportable 04/09/20 03:27 Hemoglobin C Crystals Not Reportable 04/09/20 03:27 Schistocytes Not Reportable 04/09/20 03:27 Malaria parasites Not Reportable 04/09/20 03:27 Stanton Bodies Not Reportable 04/09/20 03:27 Hem Pathologist Commnt No 04/09/20 03:27 PT 14.2 Sec. (12.2-14.9) 04/09/20 03:27 INR 1.12 (0.87-1.13) 04/09/20 03:27 ABG pH 6.911 pH Units (7.350-7.450) L* 04/08/20 21:17 ABG pCO2 10.2 mm Hg 04/08/20 21:17 ABG pO2 160.7 mm Hg (80.0-90.0) H 04/08/20 21:17 ABG HCO3 2.0 mmol/L (20.0-26.0) L 04/08/20 21:17 ABG O2 Saturation 98.2 % (95.0-99.0) 04/08/20 21:17 ABG O2 Content 12.5 (0.0-44) 04/08/20 21:17 ABG Base Excess -28.7 mmol/L (-2.0-3.0) L 04/08/20 21:17 ABG Hemoglobin 9.0 gm/dl (12.0-16.0) L 04/08/20 21:17 ABG Carboxyhemoglobin 1.6 % (0.0-5.0) 04/08/20 21:17 ABG Methemoglobin 1.1 % (0.0-1.5) 04/08/20 21:17 Oxyhemoglobin 95.6 % (95.0-99.0) 04/08/20 21:17 FiO2 28 % 04/08/20 21:17 Sodium 147 mmol/L (137-145) H 04/09/20 05:08 Potassium 3.2 mmol/L (3.6-5.0) L 04/09/20 05:08 Chloride 109.4 mmol/L (98-107) H 04/09/20 05:08 Carbon Dioxide 9 mmol/L (22-30) L* 04/09/20 05:08 Anion Gap 32 mmol/L 04/09/20 05:08 BUN 27 mg/dL (7-17) H 04/09/20 05:08 Creatinine 1.9 mg/dL (0.7-1.2) H 04/09/20 05:08 Estimated GFR 32 ml/min 04/09/20 05:08 BUN/Creatinine Ratio 14 % 04/09/20 05:08 Glucose 587 mg/dL (65-100) H* 04/09/20 05:08 Glucose 614 mg/dL (65-100) H* 04/09/20 05:08 POC Glucose 354 (70-105) H 04/09/20 08:13 Hemoglobin A1c 10.4 % (4-6) H 04/08/20 23:09 Calcium 8.6 mg/dL (8.4-10.2) 04/09/20 05:08 Phosphorus 8.60 mg/dL (2.5-4.5) H 04/08/20 23:09 Magnesium 2.60 mg/dL (1.7-2.3) H 04/08/20 23:09 Total Bilirubin TNR 04/08/20 20:07 AST TNR 04/08/20 20:07 ALT TNR 04/08/20 20:07 Alkaline Phosphatase TNR 04/08/20 20:07 Troponin T TNR 04/08/20 20:07 Total Protein TNR 04/08/20 20:07 Albumin TNR 04/08/20 20:07 Albumin/Globulin Ratio TNR 04/08/20 20:07 Urine Color Yellow (Yellow) 04/09/20 03:53 Urine Turbidity Clear (Clear) 04/09/20 03:53 Urine pH 5.0 (5.0-7.0) 04/09/20 03:53 Ur Specific [place] 1.022 (1.003-1.030) 04/09/20 03:53 Urine Protein 100 mg/dl mg/dL (Negative) 04/09/20 03:53 Urine Glucose (UA) >=500 mg/dL (Negative) 04/09/20 03:53 Urine Ketones 80 mg/dL (Negative) 04/09/20 03:53 Urine Blood Lg (Negative) 04/09/20 03:53 Urine Nitrite Neg (Negative) 04/09/20 03:53 Urine Bilirubin Neg (Negative) 04/09/20 03:53 Urine Urobilinogen < 2.0 mg/dL (<2.0) 04/09/20 03:53 Ur Leukocyte Esterase Neg (Negative) 04/09/20 03:53 Urine WBC (Auto) 5.0 /HPF (0.0-6.0) 04/09/20 03:53 Urine RBC (Auto) 2.0 /HPF (0.0-6.0) 04/09/20 03:53 U Epithel Cells (Auto) 2.0 /HPF (0-13.0) 04/09/20 03:53 Urine Bacteria (Auto) 1+ /HPF (Negative) 04/09/20 03:53 Montero/IV: IV Catheter Type [Left INT / Saline Lock External Jugular] IV Catheter Type [Left INT / Saline Lock Antecubital] Active Medications - Current Medications Current Medications: Generic Name Dose Route Start Last Admin Trade Name Freq PRN Reason Stop Dose Admin Dextrose 0 ml 04/08/20 20:37 D50w (25gm) Syringe IV Q30MIN PRN Hypoglycemia Protocol Heparin Sodium (Porcine) 5,000 unit 04/09/20 14:00 Heparin SUB-Q Q8HR IVANA Insulin Human Regular 100 100 mls @ 1 mls/hr 04/08/20 21:00 04/09/20 08:12 units/ Sodium Chloride IV 7 units/hr TITR IVANA 7 mls/hr Titration Protocol 1 UNITS/HR Sodium Chloride 1,000 mls @ 150 mls/hr 04/08/20 22:30 04/09/20 08:10 Nacl 0.9% 1000 Ml IV 150 mls/hr DIRECT IVANA Administration Potassium Chloride/Dextrose/Sod Cl 20 meq in 1,000 mls @ 125 mls/hr 04/08/20 23:00 D5w/0.45% Nacl/Kcl 20 Meq IV DIRECT IVANA Sodium Chloride 1,000 mls @ 0 mls/hr 04/08/20 23:15 04/08/20 23:31 Nacl 0.9% 1000 Ml IV 04/09/20 23:16 999 mls/hr ONCE IVANA Administration As Directed Sodium Bicarbonate 100 meq/ 1,100 mls @ 100 mls/hr 04/09/20 05:00 04/09/20 05:50 Sodium Chloride IV 04/09/20 15:59 100 mls/hr ONCE ONE Administration Ondansetron HCl 4 mg 04/08/20 22:28 Zofran IV Q8H PRN Nausea And Vomiting Sodium Chloride 10 ml 04/09/20 10:00 Sodium Chloride Flush Syringe 10 Ml IV BID IVANA Sodium Chloride 10 ml 04/08/20 22:28 Sodium Chloride Flush Syringe 10 Ml IV PRN PRN LINE FLUSH Nutrition/Malnutrition Assess - Dietary Evaluation Nutrition/Malnutrition Findings: Nutrition Notes Start: 04/09/20 08:52 Freq: Status: Active Protocol: Document 04/09/20 08:52 LM (Rec: 04/09/20 08:54 LM [email or web address]) Nutrition Notes Need for Assessment generated from: MD Order Initial or Follow up Brief Note Current Diagnosis Acute Kidney Injury,Diabetes, Hypertension,Hyperlipidemia Other Pertinent Diagnosis DKA Labs/Tests BG 614 A1C 10.4 Subjective/Other Information MD consult for DM education. Pt in ED Nutrition Intervention Follow-Up By: 04/10/20 Additional Comments F/U for diet education
[2020-04-09] MEDS ORDERED: D5W/0.45% NACL/KCL 20 MEQ 20 MEQ/1,000 ML BAG IV ONE (11:33)
--- NOTE | 2020-04-09 11:49 | Consultation ---
History of Present Illness Consult date: 04/09/20 Requesting physician: CLIFTON MURILLO Reason for consult: other (DKA) History of present illness: PULMONARY/CCM CONSULT NOTE (Full dictation # ) Please see dictated notes for full details Past History Past Medical History: diabetes, hypertension, hyperlipidemia Past Surgical History: cholecystectomy, Other (Right-sided lymph nodes excision) Social history: smoking (Current daily smoker) Family history: no significant family history Medications and Allergies Allergies Allergy/AdvReac Type Severity Reaction Status Date / Time iodine Allergy Rash Verified 04/02/20 16:43 shellfish derived Allergy Rash Verified 04/02/20 16:43 Home Medications Medication Instructions Recorded Confirmed Last Taken Type Apixaban [Eliquis] 5 mg PO Q12HR #60 tablet 04/04/20 Unknown Rx Aspirin [Aspirin BABY CHEW TAB] 81 mg PO QDAY #90 04/04/20 Unknown Rx AtorvaSTATin 10 mg PO DAILY #90 tablet 04/04/20 Unknown Rx Famotidine [Pepcid] 20 mg PO DAILY #30 tablet 04/04/20 Unknown Rx Insulin Glargine [Lantus VIAL] 25 units SUB-Q QAM #5 pen 04/04/20 Unknown Rx Janumet 50-500 mg Tablet 500 mg PO BID #60 04/04/20 Unknown Rx Lisinopril 12.5 units PO DAILY #90 04/04/20 Unknown Rx Lispro Insulin [HumaLOG] 5 unit SUB-Q AC #5 pen 04/04/20 Unknown Rx Metoprolol [Lopressor TAB] 50 mg PO BID #60 tablet 04/04/20 Unknown Rx Active Meds: Active Medications Dextrose (D50w (25gm) Syringe) 0 ml IV Q30MIN PRN; Protocol PRN Reason: Hypoglycemia Heparin Sodium (Porcine) (Heparin) 5,000 unit SUB-Q Q8HR IVANA Insulin Human Regular 100 (units/ Sodium Chloride) 100 mls @ 1 mls/hr IV TITR IVANA; Protocol Last Titration: 04/09/20 11:16 Dose: 4 units/hr, 4 mls/hr Documented by: Sodium Chloride (Nacl 0.9% 1000 Ml) 1,000 mls @ 150 mls/hr IV DIRECT IVANA Last Admin: 04/09/20 08:10 Dose: 150 mls/hr Documented by: Potassium Chloride/Dextrose/Sod Cl (D5w/0.45% Nacl/Kcl 20 Meq) 20 meq in 1,000 mls @ 125 mls/hr IV DIRECT IVNAA Last Admin: 04/09/20 11:33 Dose: 125 mls/hr Documented by: Sodium Chloride (Nacl 0.9% 1000 Ml) 1,000 mls @ 0 mls/hr IV ONCE IVANA Stop: 04/09/20 23:16 Last Admin: 04/08/20 23:31 Dose: 999 mls/hr Documented by: Sodium Bicarbonate 100 meq/ (Sodium Chloride) 1,100 mls @ 100 mls/hr IV ONCE ONE Stop: 04/09/20 15:59 Last Admin: 04/09/20 05:50 Dose: 100 mls/hr Documented by: Ondansetron HCl (Zofran) 4 mg IV Q8H PRN PRN Reason: Nausea And Vomiting Sodium Chloride (Sodium Chloride Flush Syringe 10 Ml) 10 ml IV BID IVANA Sodium Chloride (Sodium Chloride Flush Syringe 10 Ml) 10 ml IV PRN PRN PRN Reason: LINE FLUSH Physical Examination Vital signs: Vital Signs Temp Pulse Resp BP Pulse Ox 97.6 F 77 23 115/51 100 04/08/20 19:25 04/08/20 19:25 04/08/20 19:25 04/08/20 19:25 04/08/20 19:25 Results - Laboratory Findings CBC and BMP: 04/09/20 03:27 04/09/20 05:08 ABG ABG pH 6.911 pH Units (7.350-7.450) L* 04/08/20 21:17 ABG pCO2 10.2 mm Hg 04/08/20 21:17 ABG pO2 160.7 mm Hg (80.0-90.0) H 04/08/20 21:17 ABG O2 Saturation 98.2 % (95.0-99.0) 04/08/20 21:17 PT/INR, D-dimer PT 14.2 Sec. (12.2-14.9) 04/09/20 03:27 INR 1.12 (0.87-1.13) 04/09/20 03:27 Abnormal lab findings: Abnormal Labs 04/08/20 04/08/20 04/08/20 19:37 19:39 20:07 WBC RBC Hgb MCV MCHC RDW Seg Neuts % (Manual) Lymphocytes % (Manual) Monocytes % (Manual) Seg Neutrophils # Man Lymphocytes # (Manual) Monocytes # (Manual) PT 16.4 H INR 1.35 H ABG pH ABG pO2 ABG HCO3 ABG Base Excess ABG Hemoglobin Sodium Potassium Chloride Carbon Dioxide BUN Creatinine Glucose 1148 H* POC Glucose > 500 H Hemoglobin A1c Calcium Phosphorus Magnesium 04/08/20 04/08/20 04/08/20 20:58 20:58 21:05 WBC 14.4 H RBC 3.13 L Hgb MCV 119 H MCHC 27 L RDW 15.3 H Seg Neuts % (Manual) 77.0 H Lymphocytes % (Manual) 13.0 L Monocytes % (Manual) 10.0 H Seg Neutrophils # Man 11.1 H Lymphocytes # (Manual) Monocytes # (Manual) 1.4 H PT INR ABG pH ABG pO2 ABG HCO3 ABG Base Excess ABG Hemoglobin Sodium 130 L Potassium 6.8 H* Chloride 91.2 L Carbon Dioxide 2 L* BUN 31 H Creatinine 2.0 H Glucose 1269 H* POC Glucose Hemoglobin A1c Calcium Phosphorus 9.40 H Magnesium 2.60 H 04/08/20 04/08/20 04/08/20 21:17 23:09 23:09 WBC RBC Hgb MCV MCHC RDW Seg Neuts % (Manual) Lymphocytes % (Manual) Monocytes % (Manual) Seg Neutrophils # Man Lymphocytes # (Manual) Monocytes # (Manual) PT INR ABG pH 6.911 L* ABG pO2 160.7 H ABG HCO3 2.0 L ABG Base Excess -28.7 L ABG Hemoglobin 9.0 L Sodium 136 L Potassium 5.1 H D Chloride 95.1 L Carbon Dioxide 3 L* BUN 31 H Creatinine 2.0 H Glucose 1139 H* POC Glucose Hemoglobin A1c 10.4 H Calcium Phosphorus Magnesium 04/08/20 04/09/20 04/09/20 23:09 01:07 01:07 WBC RBC Hgb MCV MCHC RDW Seg Neuts % (Manual) Lymphocytes % (Manual) Monocytes % (Manual) Seg Neutrophils # Man Lymphocytes # (Manual) Monocytes # (Manual) PT INR ABG pH ABG pO2 ABG HCO3 ABG Base Excess ABG Hemoglobin Sodium Potassium Chloride Carbon Dioxide 5 L* BUN 29 H Creatinine 2.0 H Glucose 969 H* 910 H* POC Glucose Hemoglobin A1c Calcium 8.2 L Phosphorus 8.60 H Magnesium 2.60 H 04/09/20 04/09/20 04/09/20 01:14 02:23 03:03 WBC RBC Hgb MCV MCHC RDW Seg Neuts % (Manual) Lymphocytes % (Manual) Monocytes % (Manual) Seg Neutrophils # Man Lymphocytes # (Manual) Monocytes # (Manual) PT INR ABG pH ABG pO2 ABG HCO3 ABG Base Excess ABG Hemoglobin Sodium Potassium Chloride Carbon Dioxide BUN Creatinine Glucose POC Glucose > 500 H > 500 H > 500 H Hemoglobin A1c Calcium Phosphorus Magnesium 04/09/20 04/09/20 04/09/20 03:27 03:27 03:27 WBC 15.0 H RBC 3.10 L Hgb 9.9 L MCV 108 H MCHC RDW Seg Neuts % (Manual) 89.0 H Lymphocytes % (Manual) 6.0 L Monocytes % (Manual) Seg Neutrophils # Man 13.4 H Lymphocytes # (Manual) 0.9 L Monocytes # (Manual) PT INR ABG pH ABG pO2 ABG HCO3 ABG Base Excess ABG Hemoglobin Sodium Potassium 3.3 L D Chloride Carbon Dioxide 7 L* BUN 28 H Creatinine 1.9 H Glucose 746 H* 748 H* POC Glucose Hemoglobin A1c Calcium Phosphorus Magnesium 04/09/20 04/09/20 04/09/20 04:11 05:08 05:08 WBC RBC Hgb MCV MCHC RDW Seg Neuts % (Manual) Lymphocytes % (Manual) Monocytes % (Manual) Seg Neutrophils # Man Lymphocytes # (Manual) Monocytes # (Manual) PT INR ABG pH ABG pO2 ABG HCO3 ABG Base Excess ABG Hemoglobin Sodium 147 H Potassium 3.2 L Chloride 109.4 H Carbon Dioxide 9 L* BUN 27 H Creatinine 1.9 H Glucose 614 H* 587 H* POC Glucose > 500 H Hemoglobin A1c Calcium Phosphorus Magnesium 04/09/20 04/09/20 04/09/20 05:17 06:24 07:11 WBC RBC Hgb MCV MCHC RDW Seg Neuts % (Manual) Lymphocytes % (Manual) Monocytes % (Manual) Seg Neutrophils # Man Lymphocytes # (Manual) Monocytes # (Manual) PT INR ABG pH ABG pO2 ABG HCO3 ABG Base Excess ABG Hemoglobin Sodium Potassium Chloride Carbon Dioxide BUN Creatinine Glucose POC Glucose > 500 H > 500 H 459 H Hemoglobin A1c Calcium Phosphorus Magnesium 04/09/20 04/09/20 04/09/20 08:13 09:21 10:36 WBC RBC Hgb MCV MCHC RDW Seg Neuts % (Manual) Lymphocytes % (Manual) Monocytes % (Manual) Seg Neutrophils # Man Lymphocytes # (Manual) Monocytes # (Manual) PT INR ABG pH ABG pO2 ABG HCO3 ABG Base Excess ABG Hemoglobin Sodium Potassium Chloride Carbon Dioxide BUN Creatinine Glucose POC Glucose 354 H 349 H 337 H Hemoglobin A1c Calcium Phosphorus Magnesium 04/09/20 11:24 WBC RBC Hgb MCV MCHC RDW Seg Neuts % (Manual) Lymphocytes % (Manual) Monocytes % (Manual) Seg Neutrophils # Man Lymphocytes # (Manual) Monocytes # (Manual) PT INR ABG pH ABG pO2 ABG HCO3 ABG Base Excess ABG Hemoglobin Sodium Potassium Chloride Carbon Dioxide BUN Creatinine Glucose POC Glucose 219 H Hemoglobin A1c Calcium Phosphorus Magnesium
[2020-04-09] MEDS ORDERED: SODIUM CHLORIDE 0.9% 1000 ML 1,000 ML IV ONE (18:24)
[2020-04-09] MEDS ORDERED: HEPARIN 5,000 UNIT/1 ML VIAL ONE (18:47)
[2020-04-09] MEDS: HEPARIN 5,000 UNIT/1 ML VIAL SUB-Q SCH (18:53)
--- NOTE | 2020-04-09 19:09 | Event Note ---
Date: 04/09/20 Patient blood sugars are reasonable level on insulin drip,, patient denies any nausea vomiting or abdominal pain We will get Stat BMP, and check bicarb, anion gap potassium levels, and adjust management as needed We will start clear liquids as tolerated. Stat BMP has been ordered and pending report Patient was a poor stick could not get blood samples, BMP done this evening, mild hyponatremia Sodium bicarb improved to 7- 16 Anion gap closed Creatinine from 1.9-1.4 Blood sugars reasonable A1c 10.5 We will start ADA diet Change Accu-Cheks to q. before meals at bedtime Sliding scale coverage Change IV fluids to half-normal saline Transition to long-acting 70/30 insulin DC insulin drip Diabetic education Nutrition education Downgrade the patient from ICU to telemetry/MedSurg Plan of care reviewed with the patient and ER charge nurse . Critical care total time additional 30 minutes
[2020-04-09 19:23] LABS: Calcium 8.6 mg/dL (8.4-10.2)
[2020-04-09] MEDS ORDERED: INSULIN NPH/REGULAR 70/30 INJ SUB-Q ONE (21:01)
[2020-04-09 23:51] LABS: Calcium 8.1 mg/dL (8.4-10.2)
[2020-04-10] MEDS: HEPARIN 5,000 UNIT/1 ML VIAL SUB-Q SCH ×2 (00:10→06:34)
[2020-04-10] MEDS: METOPROLOL TARTRATE 50 MG TAB PO SCH ×3 (00:10→21:33)
[2020-04-10] MEDS: APIXABAN 5 MG TAB PO SCH ×3 (00:11→21:33)
[2020-04-10] MEDS: SODIUM CHLORIDE 0.45% 1000 ML 1,000 ML IV SCH ×2 (00:12→12:02)
[2020-04-10] MEDS: INSULIN LISPRO 100 UNIT/ML SUB-Q SCH ×4 (00:57→17:20)
[2020-04-10 06:32] LABS: Basophils % (Auto) 0.1 % (0.0-1.8); Hematocrit 29.3 % (30.3-42.9); Hemoglobin 9.6 gm/dl (10.1-14.3); Lymphocytes # (Auto) 0.9 K/mm3 (1.2-5.4); Lymphocytes % (Auto) 6.9 % (13.4-35.0); Mean Corpuscular HGB Conc 33 % (30-34); Mean Corpuscular Volume 98 fl (79-97); Monocytes # (Auto) 1.2 K/mm3 (0.0-0.8); Monocytes % (Auto) 9.3 % (0.0-7.3); Platelet Count 196 K/mm3 (140-440); Red Cell Distribution Width 13.8 % (13.2-15.2)
[2020-04-10 06:43] LABS: Albumin 3.2 g/dL (3.9-5); Calcium 8.6 mg/dL (8.4-10.2)
[2020-04-10] MEDS: INSULIN NPH/REGULAR 70/30 INJ SUB-Q SCH ×2 (08:48→17:20)
[2020-04-10] MEDS: LISINOPRIL 5 MG TAB PO SCH (09:53)
[2020-04-10] MEDS: FAMOTIDINE 20 MG TAB PO SCH (09:55)
[2020-04-10] MEDS: ASPIRIN 81 MG TAB CHEW PO SCH (09:56)
[2020-04-10] MEDS ORDERED: LISINOPRIL PO SCH (10:00)
--- NOTE | 2020-04-10 12:52 | Progress Note ---
Assessment and Plan Patient resting on room air. Patient is sleepy. No acute respiratory distress. O2 saturation 100%. - Patient Problems (1) DKA (diabetic ketoacidoses) Current Visit: Yes Status: Acute Qualifiers: Diabetes mellitus type: type 2 Diabetes mellitus complication detail: without coma Qualified Code(s): E11.10 - Type 2 diabetes mellitus with ketoacidosis without coma Plan to address problem: Anion gap improved. Management as primary care. (2) BRITTNEY (acute kidney injury) Current Visit: No Status: Acute Plan to address problem: Management as per nephrology. (3) AMS (altered mental status) Current Visit: No Status: Acute Plan to address problem: Likely from diabetic keto acidosis. Mental status slowly improving. Management as per primary care. (4) Anemia Current Visit: No Status: Acute Plan to address problem: Likely anemia of chronic disease. Management as per primary care. Subjective Date of service: 04/10/20 Interval history: Patient resting on room air. Patient is sleepy. No acute respiratory distress. O2 saturation 100%. Objective Vital Signs - 12hr 04/10/20 04/10/20 04/10/20 02:02 03:48 08:15 Temperature 97.6 F 98.6 F Pulse Rate 68 68 Respiratory 18 20 Rate Blood Pressure 136/75 198/72 O2 Sat by Pulse 97 98 99 Oximetry 04/10/20 04/10/20 04/10/20 09:53 09:55 11:15 Temperature 97.8 F Pulse Rate 69 Respiratory 18 Rate Blood Pressure 198/72 198/72 198/82 O2 Sat by Pulse 100 Oximetry Constitutional: no acute distress, other (Sleepy.) Eyes: non-icteric ENT: oropharynx moist Effort: normal Ascultation: Bilateral: clear Cardiovascular: regular rate and rhythm Gastrointestinal: normoactive bowel sounds, soft, non-tender Integumentary: normal Extremities: no cyanosis, no edema Neurologic: unable to assess Psychiatric: other (Unable to assess. Patient is sleepy.) CBC and BMP: 04/10/20 05:28 04/10/20 05:28 ABG, PT/INR, D-dimer: ABG ABG pH 6.911 pH Units (7.350-7.450) L* 04/08/20 21:17 ABG pCO2 10.2 mm Hg 04/08/20 21:17 ABG pO2 160.7 mm Hg (80.0-90.0) H 04/08/20 21:17 ABG O2 Saturation 98.2 % (95.0-99.0) 04/08/20 21:17 PT/INR, D-dimer PT 14.2 Sec. (12.2-14.9) 04/09/20 03:27 INR 1.12 (0.87-1.13) 04/09/20 03:27 Abnormal lab findings: Abnormal Labs 04/08/20 04/08/20 04/08/20 19:37 19:39 20:07 WBC RBC Hgb Hct MCV MCHC RDW Lymph % (Auto) [place] % (Auto) Lymph # [place] # Seg Neutrophils % Seg Neuts % (Manual) Lymphocytes % (Manual) Monocytes % (Manual) Seg Neutrophils # Seg Neutrophils # Man Lymphocytes # (Manual) Monocytes # (Manual) PT 16.4 H INR 1.35 H ABG pH ABG pO2 ABG HCO3 ABG Base Excess ABG Hemoglobin Sodium Potassium Chloride Carbon Dioxide BUN Creatinine Glucose 1148 H* POC Glucose > 500 H Hemoglobin A1c Calcium Phosphorus Magnesium Total Protein Albumin 04/08/20 04/08/20 04/08/20 20:58 20:58 21:05 WBC 14.4 H RBC 3.13 L Hgb Hct MCV 119 H MCHC 27 L RDW 15.3 H Lymph % (Auto) [place] % (Auto) Lymph # [place] # Seg Neutrophils % Seg Neuts % (Manual) 77.0 H Lymphocytes % (Manual) 13.0 L Monocytes % (Manual) 10.0 H Seg Neutrophils # Seg Neutrophils # Man 11.1 H Lymphocytes # (Manual) Monocytes # (Manual) 1.4 H PT INR ABG pH ABG pO2 ABG HCO3 ABG Base Excess ABG Hemoglobin Sodium 130 L Potassium 6.8 H* Chloride 91.2 L Carbon Dioxide 2 L* BUN 31 H Creatinine 2.0 H Glucose 1269 H* POC Glucose Hemoglobin A1c Calcium Phosphorus 9.40 H Magnesium 2.60 H Total Protein Albumin 04/08/20 04/08/20 04/08/20 21:17 23:09 23:09 WBC RBC Hgb Hct MCV MCHC RDW Lymph % (Auto) [place] % (Auto) Lymph # [place] # Seg Neutrophils % Seg Neuts % (Manual) Lymphocytes % (Manual) Monocytes % (Manual) Seg Neutrophils # Seg Neutrophils # Man Lymphocytes # (Manual) Monocytes # (Manual) PT INR ABG pH 6.911 L* ABG pO2 160.7 H ABG HCO3 2.0 L ABG Base Excess -28.7 L ABG Hemoglobin 9.0 L Sodium 136 L Potassium 5.1 H D Chloride 95.1 L Carbon Dioxide 3 L* BUN 31 H Creatinine 2.0 H Glucose 1139 H* POC Glucose Hemoglobin A1c 10.4 H Calcium Phosphorus Magnesium Total Protein Albumin 04/08/20 04/09/20 04/09/20 23:09 01:07 01:07 WBC RBC Hgb Hct MCV MCHC RDW Lymph % (Auto) [place] % (Auto) Lymph # [place] # Seg Neutrophils % Seg Neuts % (Manual) Lymphocytes % (Manual) Monocytes % (Manual) Seg Neutrophils # Seg Neutrophils # Man Lymphocytes # (Manual) Monocytes # (Manual) PT INR ABG pH ABG pO2 ABG HCO3 ABG Base Excess ABG Hemoglobin Sodium Potassium Chloride Carbon Dioxide 5 L* BUN 29 H Creatinine 2.0 H Glucose 969 H* 910 H* POC Glucose Hemoglobin A1c Calcium 8.2 L Phosphorus 8.60 H Magnesium 2.60 H Total Protein Albumin 04/09/20 04/09/20 04/09/20 01:14 02:23 03:03 WBC RBC Hgb Hct MCV MCHC RDW Lymph % (Auto) [place] % (Auto) Lymph # [place] # Seg Neutrophils % Seg Neuts % (Manual) Lymphocytes % (Manual) Monocytes % (Manual) Seg Neutrophils # Seg Neutrophils # Man Lymphocytes # (Manual) Monocytes # (Manual) PT INR ABG pH ABG pO2 ABG HCO3 ABG Base Excess ABG Hemoglobin Sodium Potassium Chloride Carbon Dioxide BUN Creatinine Glucose POC Glucose > 500 H > 500 H > 500 H Hemoglobin A1c Calcium Phosphorus Magnesium Total Protein Albumin 04/09/20 04/09/20 04/09/20 03:27 03:27 03:27 WBC 15.0 H RBC 3.10 L Hgb 9.9 L Hct MCV 108 H MCHC RDW Lymph % (Auto) [place] % (Auto) Lymph # [place] # Seg Neutrophils % Seg Neuts % (Manual) 89.0 H Lymphocytes % (Manual) 6.0 L Monocytes % (Manual) Seg Neutrophils # Seg Neutrophils # Man 13.4 H Lymphocytes # (Manual) 0.9 L Monocytes # (Manual) PT INR ABG pH ABG pO2 ABG HCO3 ABG Base Excess ABG Hemoglobin Sodium Potassium 3.3 L D Chloride Carbon Dioxide 7 L* BUN 28 H Creatinine 1.9 H Glucose 746 H* 748 H* POC Glucose Hemoglobin A1c Calcium Phosphorus Magnesium Total Protein Albumin 04/09/20 04/09/20 04/09/20 04:11 05:08 05:08 WBC RBC Hgb Hct MCV MCHC RDW Lymph % (Auto) [place] % (Auto) Lymph # [place] # Seg Neutrophils % Seg Neuts % (Manual) Lymphocytes % (Manual) Monocytes % (Manual) Seg Neutrophils # Seg Neutrophils # Man Lymphocytes # (Manual) Monocytes # (Manual) PT INR ABG pH ABG pO2 ABG HCO3 ABG Base Excess ABG Hemoglobin Sodium 147 H Potassium 3.2 L Chloride 109.4 H Carbon Dioxide 9 L* BUN 27 H Creatinine 1.9 H Glucose 614 H* 587 H* POC Glucose > 500 H Hemoglobin A1c Calcium Phosphorus Magnesium Total Protein Albumin 04/09/20 04/09/20 04/09/20 05:17 06:24 07:11 WBC RBC Hgb Hct MCV MCHC RDW Lymph % (Auto) [place] % (Auto) Lymph # [place] # Seg Neutrophils % Seg Neuts % (Manual) Lymphocytes % (Manual) Monocytes % (Manual) Seg Neutrophils # Seg Neutrophils # Man Lymphocytes # (Manual) Monocytes # (Manual) PT INR ABG pH ABG pO2 ABG HCO3 ABG Base Excess ABG Hemoglobin Sodium Potassium Chloride Carbon Dioxide BUN Creatinine Glucose POC Glucose > 500 H > 500 H 459 H Hemoglobin A1c Calcium Phosphorus Magnesium Total Protein Albumin 04/09/20 04/09/20 04/09/20 08:13 09:21 10:36 WBC RBC Hgb Hct MCV MCHC RDW Lymph % (Auto) [place] % (Auto) Lymph # [place] # Seg Neutrophils % Seg Neuts % (Manual) Lymphocytes % (Manual) Monocytes % (Manual) Seg Neutrophils # Seg Neutrophils # Man Lymphocytes # (Manual) Monocytes # (Manual) PT INR ABG pH ABG pO2 ABG HCO3 ABG Base Excess ABG Hemoglobin Sodium Potassium Chloride Carbon Dioxide BUN Creatinine Glucose POC Glucose 354 H 349 H 337 H Hemoglobin A1c Calcium Phosphorus Magnesium Total Protein Albumin 04/09/20 04/09/20 04/09/20 11:24 12:29 13:22 WBC RBC Hgb Hct MCV MCHC RDW Lymph % (Auto) [place] % (Auto) Lymph # [place] # Seg Neutrophils % Seg Neuts % (Manual) Lymphocytes % (Manual) Monocytes % (Manual) Seg Neutrophils # Seg Neutrophils # Man Lymphocytes # (Manual) Monocytes # (Manual) PT INR ABG pH ABG pO2 ABG HCO3 ABG Base Excess ABG Hemoglobin Sodium Potassium Chloride Carbon Dioxide BUN Creatinine Glucose POC Glucose 219 H 235 H 213 H Hemoglobin A1c Calcium Phosphorus Magnesium Total Protein Albumin 04/09/20 04/09/20 04/09/20 14:26 15:22 16:31 WBC RBC Hgb Hct MCV MCHC RDW Lymph % (Auto) [place] % (Auto) Lymph # [place] # Seg Neutrophils % Seg Neuts % (Manual) Lymphocytes % (Manual) Monocytes % (Manual) Seg Neutrophils # Seg Neutrophils # Man Lymphocytes # (Manual) Monocytes # (Manual) PT INR ABG pH ABG pO2 ABG HCO3 ABG Base Excess ABG Hemoglobin Sodium Potassium Chloride Carbon Dioxide BUN Creatinine Glucose POC Glucose 205 H 158 H 119 H Hemoglobin A1c Calcium Phosphorus Magnesium Total Protein Albumin 04/09/20 04/09/20 04/09/20 17:33 18:26 18:39 WBC RBC Hgb Hct MCV MCHC RDW Lymph % (Auto) [place] % (Auto) Lymph # [place] # Seg Neutrophils % Seg Neuts % (Manual) Lymphocytes % (Manual) Monocytes % (Manual) Seg Neutrophils # Seg Neutrophils # Man Lymphocytes # (Manual) Monocytes # (Manual) PT INR ABG pH ABG pO2 ABG HCO3 ABG Base Excess ABG Hemoglobin Sodium 152 H Potassium Chloride 117.5 H Carbon Dioxide 16 L D BUN 25 H Creatinine 1.4 H Glucose 164 H POC Glucose 138 H 155 H Hemoglobin A1c Calcium Phosphorus Magnesium Total Protein Albumin 04/09/20 04/09/20 04/09/20 21:06 22:51 23:09 WBC RBC Hgb Hct MCV MCHC RDW Lymph % (Auto) [place] % (Auto) Lymph # [place] # Seg Neutrophils % Seg Neuts % (Manual) Lymphocytes % (Manual) Monocytes % (Manual) Seg Neutrophils # Seg Neutrophils # Man Lymphocytes # (Manual) Monocytes # (Manual) PT INR ABG pH ABG pO2 ABG HCO3 ABG Base Excess ABG Hemoglobin Sodium 147 H Potassium 3.5 L D Chloride 113.1 H Carbon Dioxide 13 L BUN 22 H Creatinine 1.3 H Glucose 341 H POC Glucose 174 H 324 H Hemoglobin A1c Calcium 8.1 L Phosphorus Magnesium Total Protein Albumin 04/10/20 04/10/20 04/10/20 05:28 05:28 08:19 WBC 12.6 H RBC 3.00 L Hgb 9.6 L Hct 29.3 L MCV 98 H MCHC RDW Lymph % (Auto) 6.9 L [place] % (Auto) 9.3 H Lymph # 0.9 L [place] # 1.2 H Seg Neutrophils % 83.7 H Seg Neuts % (Manual) Lymphocytes % (Manual) Monocytes % (Manual) Seg Neutrophils # 10.5 H Seg Neutrophils # Man Lymphocytes # (Manual) Monocytes # (Manual) PT INR ABG pH ABG pO2 ABG HCO3 ABG Base Excess ABG Hemoglobin Sodium 150 H Potassium Chloride 113.1 H Carbon Dioxide 18 L BUN 22 H Creatinine 1.3 H Glucose 396 H POC Glucose 480 H Hemoglobin A1c Calcium Phosphorus 2.40 L D Magnesium Total Protein 5.2 L Albumin 3.2 L 04/10/20 11:30 WBC RBC Hgb Hct MCV MCHC RDW Lymph % (Auto) [place] % (Auto) Lymph # [place] # Seg Neutrophils % Seg Neuts % (Manual) Lymphocytes % (Manual) Monocytes % (Manual) Seg Neutrophils # Seg Neutrophils # Man Lymphocytes # (Manual) Monocytes # (Manual) PT INR ABG pH ABG pO2 ABG HCO3 ABG Base Excess ABG Hemoglobin Sodium Potassium Chloride Carbon Dioxide BUN Creatinine Glucose POC Glucose 363 H Hemoglobin A1c Calcium Phosphorus Magnesium Total Protein Albumin Chest x-ray: report reviewed, image reviewed Additional Studies: CHEST 1 VIEW 04/08/2020 8:31 PM INDICATION / CLINICAL INFORMATION: Lightheadedness/Dizziness. COMPARISON: 04/02/2020 FINDINGS: SUPPORT DEVICES: None. HEART / MEDIASTINUM: No significant abnormality. LUNGS / PLEURA: No significant pulmonary or pleural abnormality. No pneumothorax. ADDITIONAL FINDINGS: No significant additional findings. IMPRESSION: 1. No acute findings.
--- NOTE | 2020-04-10 20:01 | Progress Note ---
Assessment and Plan Assessment and plan: -- DKA (diabetic ketoacidoses) resolved Current Visit: Yes Status: Acute Patient is on long-acting insulin Moderate control --Type 2 diabetes mellitus; moderate control Current Visit: No Status: Acute Accu-Chek sliding scale coverage ADA diet Adjust 70/30 insulin dose, A1c 10.4 -- Hyperkalemia/present on admission Current Visit: No Status: Acute resolved, monitor electrolytes --Severe metabolic acidosis; Current Visit: No Status: Acute Replacement therapy, IV fluids Significantly improved --BRITTNEY (acute kidney injury) Current Visit: No Status: Acute Vasomotor nephropathy and secondary to volume depletion. Renal function back to baseline --Chronic anemia Current Visit: No Status: Acute Probably chronic. H&H low stable --Hyponatremia Current Visit: No Status: Acute Possibly secondary to DKA. Will monitor chemistry Advise free water, closely monitor electrolytes --Hyperlipidemia Current Visit: No Status: Chronic Statin, low-cholesterol diet -- Hypertension Current Visit: No Status: Chronic resume routine antihypertensive medications. -- Noncompliance with medication regimen Current Visit: No Status: Chronic Counseled on compliance with medications. --DVT prophylaxis Current Visit: No Status: Chronic We will place patient on subcutaneous heparin. --Full code status Current Visit: No Status: Acute DC planning per case management; home with home health and home health nurse for disease monitoring Versus placement We will monitor closely and adjust management as needed Plan of care reviewed with the patient and nurse 04/10/20; blood sugars moderate control, increase 70/30 Novolin insulin Monitor electrolytes, possible discharge in 1 to 2 days Home with home health nurse for disease monitoring at DC History Interval history: Patient seen and examined this afternoon at the bedside Patient's chart and medications reviewed Patient sugars significantly improved however still uncontrolled Patient is minimally communicative Vital signs reviewed Hospitalist Physical - Constitutional Vitals: Temp Pulse Resp BP Pulse Ox 98.9 F 63 20 199/74 98 04/10/20 16:17 04/10/20 16:17 04/10/20 16:17 04/10/20 16:17 04/10/20 16:17 General appearance: Present: no acute distress, well-nourished, other (Looks weak and tired) - EENT Eyes: Present: PERRL, EOM intact - Neck Neck: Present: supple, normal ROM - Respiratory Respiratory effort: normal Respiratory: bilateral: diminished, negative: rales, rhonchi, wheezing - Cardiovascular Rhythm: regular Heart Sounds: Present: S1 & S2 - Extremities Extremities: no ischemia, No edema - Abdominal General gastrointestinal: soft, non-tender, non-distended, normal bowel sounds - Integumentary Integumentary: Present: clear, warm - Psychiatric Psychiatric: appropriate mood/affect - Neurologic Neurologic: CNII-XII intact, moves all extremities HEART Score - HEART Score Troponin: Troponin T TNR 04/08/20 20:07 Results - Labs CBC & Chem 7: 04/10/20 05:28 04/10/20 05:28 Labs: Laboratory Last Values WBC 12.6 K/mm3 (4.5-11.0) H 04/10/20 05:28 RBC 3.00 M/mm3 (3.65-5.03) L 04/10/20 05:28 Hgb 9.6 gm/dl (10.1-14.3) L 04/10/20 05:28 Hct 29.3 % (30.3-42.9) L 04/10/20 05:28 MCV 98 fl (79-97) H 04/10/20 05:28 MCH 32 pg (28-32) 04/10/20 05:28 MCHC 33 % (30-34) 04/10/20 05:28 RDW 13.8 % (13.2-15.2) 04/10/20 05:28 Plt Count 196 K/mm3 (140-440) 04/10/20 05:28 Lymph % (Auto) 6.9 % (13.4-35.0) L 04/10/20 05:28 [place] % (Auto) 9.3 % (0.0-7.3) H 04/10/20 05:28 Eos % (Auto) 0.0 % (0.0-4.3) 04/10/20 05:28 Baso % (Auto) 0.1 % (0.0-1.8) 04/10/20 05:28 Lymph # 0.9 K/mm3 (1.2-5.4) L 04/10/20 05:28 [place] # 1.2 K/mm3 (0.0-0.8) H 04/10/20 05:28 Eos # 0.0 K/mm3 (0.0-0.4) 04/10/20 05:28 Baso # 0.0 K/mm3 (0.0-0.1) 04/10/20 05:28 Add Manual Diff Complete 04/09/20 03:27 Total Counted 100 04/09/20 03:27 Seg Neutrophils % 83.7 % (40.0-70.0) H 04/10/20 05:28 Seg Neuts % (Manual) 89.0 % (40.0-70.0) H 04/09/20 03:27 Band Neutrophils % 0 % 04/09/20 03:27 Lymphocytes % (Manual) 6.0 % (13.4-35.0) L 04/09/20 03:27 Reactive Lymphs % (Man) 0 % 04/09/20 03:27 Monocytes % (Manual) 4.0 % (0.0-7.3) 04/09/20 03:27 Eosinophils % (Manual) 1.0 % (0.0-4.3) 04/09/20 03:27 Basophils % (Manual) 0 % (0.0-1.8) 04/09/20 03:27 Metamyelocytes % 0 % 04/09/20 03:27 Myelocytes % 0 % 04/09/20 03:27 Promyelocytes % 0 % 04/09/20 03:27 Blast Cells % 0 % 04/09/20 03:27 Nucleated RBC % Not Reportable 04/09/20 03:27 Seg Neutrophils # 10.5 K/mm3 (1.8-7.7) H 04/10/20 05:28 Seg Neutrophils # Man 13.4 K/mm3 (1.8-7.7) H 04/09/20 03:27 Band Neutrophils # 0.0 K/mm3 04/09/20 03:27 Lymphocytes # (Manual) 0.9 K/mm3 (1.2-5.4) L 04/09/20 03:27 Abs React Lymphs (Man) 0.0 K/mm3 04/09/20 03:27 Monocytes # (Manual) 0.6 K/mm3 (0.0-0.8) 04/09/20 03:27 Eosinophils # (Manual) 0.2 K/mm3 (0.0-0.4) 04/09/20 03:27 Basophils # (Manual) 0.0 K/mm3 (0.0-0.1) 04/09/20 03:27 Metamyelocytes # 0.0 K/mm3 04/09/20 03:27 Myelocytes # 0.0 K/mm3 04/09/20 03:27 Promyelocytes # 0.0 K/mm3 04/09/20 03:27 Blast Cells # 0.0 K/mm3 04/09/20 03:27 WBC Morphology Not Reportable 04/09/20 03:27 Hypersegmented Neuts Not Reportable 04/09/20 03:27 Hyposegmented Neuts Not Reportable 04/09/20 03:27 Hypogranular Neuts Not Reportable 04/09/20 03:27 Smudge Cells Not Reportable 04/09/20 03:27 Toxic Granulation Not Reportable 04/09/20 03:27 Toxic Vacuolation Not Reportable 04/09/20 03:27 Dohle Bodies Not Reportable 04/09/20 03:27 Pelger-Huet Anomaly Not Reportable 04/09/20 03:27 Nadine Rods Not Reportable 04/09/20 03:27 Platelet Estimate Consistent w auto 04/09/20 03:27 Clumped Platelets Not Reportable 04/09/20 03:27 Plt Clumps, EDTA Not Reportable 04/09/20 03:27 Large Platelets Not Reportable 04/09/20 03:27 Giant Platelets Not Reportable 04/09/20 03:27 Platelet Satelliting Not Reportable 04/09/20 03:27 Plt Morphology Comment Not Reportable 04/09/20 03:27 RBC Morphology Not Reportable 04/09/20 03:27 Dimorphic RBCs Not Reportable 04/09/20 03:27 Polychromasia Not Reportable 04/09/20 03:27 Hypochromasia Not Reportable 04/09/20 03:27 Poikilocytosis Not Reportable 04/09/20 03:27 Anisocytosis Few 04/09/20 03:27 Microcytosis Not Reportable 04/09/20 03:27 Macrocytosis Not Reportable 04/09/20 03:27 Spherocytes Not Reportable 04/09/20 03:27 Pappenheimer Bodies Not Reportable 04/09/20 03:27 Sickle Cells Not Reportable 04/09/20 03:27 Target Cells Not Reportable 04/09/20 03:27 Tear Drop Cells Not Reportable 04/09/20 03:27 Ovalocytes Rare 04/09/20 03:27 Helmet Cells Not Reportable 04/09/20 03:27 [place] Bodies Not Reportable 04/09/20 03:27 [place] Rings Not Reportable 04/09/20 03:27 Mandie Cells Not Reportable 04/09/20 03:27 Bite Cells Not Reportable 04/09/20 03:27 Crenated Cell Not Reportable 04/09/20 03:27 Elliptocytes Not Reportable 04/09/20 03:27 Acanthocytes (Spur) Not Reportable 04/09/20 03:27 Rouleaux Not Reportable 04/09/20 03:27 Hemoglobin C Crystals Not Reportable 04/09/20 03:27 Schistocytes Not Reportable 04/09/20 03:27 Malaria parasites Not Reportable 04/09/20 03:27 [place] Bodies Not Reportable 04/09/20 03:27 Hem Pathologist Commnt No 04/09/20 03:27 PT 14.2 Sec. (12.2-14.9) 04/09/20 03:27 INR 1.12 (0.87-1.13) 04/09/20 03:27 ABG pH 6.911 pH Units (7.350-7.450) L* 04/08/20 21:17 ABG pCO2 10.2 mm Hg 04/08/20 21:17 ABG pO2 160.7 mm Hg (80.0-90.0) H 04/08/20 21:17 ABG HCO3 2.0 mmol/L (20.0-26.0) L 04/08/20 21:17 ABG O2 Saturation 98.2 % (95.0-99.0) 04/08/20 21:17 ABG O2 Content 12.5 (0.0-44) 04/08/20 21:17 ABG Base Excess -28.7 mmol/L (-2.0-3.0) L 04/08/20 21:17 ABG Hemoglobin 9.0 gm/dl (12.0-16.0) L 04/08/20 21:17 ABG Carboxyhemoglobin 1.6 % (0.0-5.0) 04/08/20 21:17 ABG Methemoglobin 1.1 % (0.0-1.5) 04/08/20 21:17 Oxyhemoglobin 95.6 % (95.0-99.0) 04/08/20 21:17 FiO2 28 % 04/08/20 21:17 Sodium 150 mmol/L (137-145) H 04/10/20 05:28 Potassium 4.4 mmol/L (3.6-5.0) D 04/10/20 05:28 Chloride 113.1 mmol/L (98-107) H 04/10/20 05:28 Carbon Dioxide 18 mmol/L (22-30) L 04/10/20 05:28 Anion Gap 23 mmol/L 04/10/20 05:28 BUN 22 mg/dL (7-17) H 04/10/20 05:28 Creatinine 1.3 mg/dL (0.7-1.2) H 04/10/20 05:28 Estimated GFR 49 ml/min 04/10/20 05:28 BUN/Creatinine Ratio 17 % 04/10/20 05:28 Glucose 396 mg/dL (65-100) H 04/10/20 05:28 POC Glucose 299 (70-105) H 04/10/20 16:33 Hemoglobin A1c 10.4 % (4-6) H 04/08/20 23:09 Calcium 8.6 mg/dL (8.4-10.2) 04/10/20 05:28 Phosphorus 2.40 mg/dL (2.5-4.5) L D 04/10/20 05:28 Magnesium 1.90 mg/dL (1.7-2.3) 04/10/20 05:28 Total Bilirubin 0.30 mg/dL (0.1-1.2) 04/10/20 05:28 AST 30 units/L (5-40) 04/10/20 05:28 ALT 26 units/L (7-56) 04/10/20 05:28 Alkaline Phosphatase 102 units/L (35-129) 04/10/20 05:28 Troponin T TNR 04/08/20 20:07 Total Protein 5.2 g/dL (6.3-8.2) L 04/10/20 05:28 Albumin 3.2 g/dL (3.9-5) L 04/10/20 05:28 Albumin/Globulin Ratio 1.6 % 04/10/20 05:28 Urine Color Yellow (Yellow) 04/09/20 03:53 Urine Turbidity Clear (Clear) 04/09/20 03:53 Urine pH 5.0 (5.0-7.0) 04/09/20 03:53 Ur Specific [place] 1.022 (1.003-1.030) 04/09/20 03:53 Urine Protein 100 mg/dl mg/dL (Negative) 04/09/20 03:53 Urine Glucose (UA) >=500 mg/dL (Negative) 04/09/20 03:53 Urine Ketones 80 mg/dL (Negative) 04/09/20 03:53 Urine Blood Lg (Negative) 04/09/20 03:53 Urine Nitrite Neg (Negative) 04/09/20 03:53 Urine Bilirubin Neg (Negative) 04/09/20 03:53 Urine Urobilinogen < 2.0 mg/dL (<2.0) 04/09/20 03:53 Ur Leukocyte Esterase Neg (Negative) 04/09/20 03:53 Urine WBC (Auto) 5.0 /HPF (0.0-6.0) 04/09/20 03:53 Urine RBC (Auto) 2.0 /HPF (0.0-6.0) 04/09/20 03:53 U Epithel Cells (Auto) 2.0 /HPF (0-13.0) 04/09/20 03:53 Urine Bacteria (Auto) 1+ /HPF (Negative) 04/09/20 03:53 Monter[place]/IV: Voiding Method External Female Catheter IV Catheter Type [Left INT / Saline Lock External Jugular] IV Catheter Type [Left INT / Saline Lock Antecubital] Active Medications - Current Medications Current Medications: Generic Name Dose Route Start Last Admin Trade Name Freq PRN Reason Stop Dose Admin Apixaban 5 mg 04/09/20 22:00 04/10/20 09:55 Eliquis PO 5 mg Q12HR IVANA Administration Protocol Aspirin 81 mg 04/10/20 10:00 04/10/20 09:56 Baby Aspirin PO 81 mg QDAY IVANA Administration Atorvastatin Calcium 10 mg 04/09/20 22:00 04/10/20 00:11 Atorvastatin PO 10 mg HS IVANA Administration Dextrose 0 ml 04/08/20 20:37 D50w (25gm) Syringe IV Q30MIN PRN Hypoglycemia Protocol Famotidine 20 mg 04/10/20 10:00 04/10/20 09:55 Pepcid PO 20 mg DAILY IVANA Administration Sodium Chloride 1,000 mls @ 100 mls/hr 04/09/20 20:00 04/10/20 12:02 Nacl 0.45% 1000 Ml IV 100 mls/hr DIRECT IVANA Administration Insulin Human Isoph/Insulin Regular 8 unit 04/10/20 08:00 04/10/20 17:20 Humulin 70/30 SUB-Q 8 unit BIDDIAB IVANA Administration Insulin Human Lispro 0 unit 04/09/20 22:00 04/10/20 17:20 Humalog SUB-Q 3 unit ACHS IVANA Administration Protocol Lisinopril 12.5 mg 04/10/20 10:00 04/10/20 09:53 Zestril PO 12.5 mg QDAY IVANA Administration Metoprolol Tartrate 50 mg 04/09/20 22:00 04/10/20 09:55 Metoprolol PO 50 mg BID IVANA Administration Ondansetron HCl 4 mg 04/08/20 22:28 Zofran IV Q8H PRN Nausea And Vomiting Sodium Chloride 10 ml 04/09/20 10:00 04/10/20 17:25 Sodium Chloride Flush Syringe 10 Ml IV 10 ml BID IVANA Administration Sodium Chloride 10 ml 04/08/20 22:28 Sodium Chloride Flush Syringe 10 Ml IV PRN PRN LINE FLUSH Nutrition/Malnutrition Assess - Dietary Evaluation Nutrition/Malnutrition Findings: Nutrition Notes Start: 04/09/20 08:52 Freq: Status: Active Protocol: Document 04/10/20 12:35 LP (Rec: 04/10/20 12:36 LP [id number]) Nutrition Notes Initial or Follow up Brief Note Subjective/Other Information Pt not appropriate for diet education. Pt eating well. Nutrition Intervention Revisit per MD consult or patient Sign Off request:
[2020-04-11] MEDS: INSULIN LISPRO 100 UNIT/ML SUB-Q SCH ×4 (00:01→16:36)
[2020-04-11] MEDS: hydrALAZINE 20 MG/1 ML INJ IV PRN ×3 (05:33→17:17)
[2020-04-11] MEDS: SODIUM CHLORIDE 0.45% 1000 ML 1,000 ML IV SCH (05:33)
[2020-04-11] MEDS: INSULIN NPH/REGULAR 70/30 INJ SUB-Q SCH ×3 (08:46→16:36)
[2020-04-11] MEDS: ASPIRIN 81 MG TAB CHEW PO SCH (09:29)
[2020-04-11] MEDS: APIXABAN 5 MG TAB PO SCH (09:29)
[2020-04-11] MEDS: FAMOTIDINE 20 MG TAB PO SCH (09:29)
[2020-04-11] MEDS: LISINOPRIL 5 MG TAB PO SCH (09:29)
[2020-04-11] MEDS: METOPROLOL TARTRATE 50 MG TAB PO SCH (09:29)
[2020-04-11 14:28] LABS: Calcium 8.5 mg/dL (8.4-10.2)
[2020-04-11] MEDS ORDERED: POTASSIUM CHLORIDE ER 10 MEQ TAB PO ONE (16:56)
--- NOTE | 2020-04-11 17:03 | Discharge Summary ---
Providers - Providers Date of Admission: 04/08/20 22:12 Date of discharge: 04/11/20 Attending physician: HILLARY JORGE 04/08/20 20:37 Consult to Dietitian/Nutrition [CONS] Routine Physician Instructions: Reason For Exam: DKA Reason for Consult: Nutrition Recommendations Reason for Consult: Diet education 04/08/20 22:29 Consult to Dietitian/Nutrition [CONS] Routine Physician Instructions: Reason For Exam: Reason for Consult: Diet education Consult to Physician [CONS] Routine Comment: Spoke with Dr. Soto @ [id number] Consulting Provider: CRUZ SOTO Physician Instructions: Reason For Exam: DIABETIC KETOACIDOSIS 04/10/20 20:09 Physical Therapy Evaluation and Treat [CONS] Routine Comment: Reason For Exam: General debility, evaluate and treat/DC needs Primary care physician: [employer] Hospitalization Condition: Critical Hospital course: -- DKA (diabetic ketoacidoses) resolved Current Visit: Yes Status: Acute Patient is on long-acting insulin Moderate control --Type 2 diabetes mellitus; moderate control Current Visit: No Status: Acute Accu-Chek sliding scale coverage ADA diet Adjust 70/30 insulin dose, A1c 10.4 -- Hyperkalemia/present on admission Current Visit: No Status: Acute resolved, monitor electrolytes --Severe metabolic acidosis; Current Visit: No Status: Acute Replacement therapy, IV fluids Significantly improved --BRITTNEY (acute kidney injury) Current Visit: No Status: Acute Vasomotor nephropathy and secondary to volume depletion. Renal function back to baseline --Chronic anemia Current Visit: No Status: Acute Probably chronic. H&H low stable --Hyponatremia Current Visit: No Status: Acute Possibly secondary to DKA. Will monitor chemistry Advise free water, closely monitor electrolytes --Hyperlipidemia Current Visit: No Status: Chronic Statin, low-cholesterol diet -- Hypertension Current Visit: No Status: Chronic resume routine antihypertensive medications. -- Noncompliance with medication regimen Current Visit: No Status: Chronic Counseled on compliance with medications. --DVT prophylaxis Current Visit: No Status: Chronic We will place patient on subcutaneous heparin. --Full code status Current Visit: No Status: Acute Disposition: DC-01 TO HOME OR SELFCARE Time spent for discharge: 32 min Core Measure Documentation - Palliative Care Palliative Care/ Comfort Measures: Not Applicable - Core Measures Any of the following diagnoses?: none Exam - Constitutional Vitals: Temp Pulse Resp BP Pulse Ox 98.0 F 74 18 181/72 99 04/11/20 03:19 04/11/20 03:19 04/11/20 03:04/11/20 03:04/11/20 10:00 General appearance: Present: no acute distress, well-nourished - EENT Eyes: Present: PERRL, EOM intact - Neck Neck: Present: supple, normal ROM - Respiratory Respiratory effort: normal - Cardiovascular Rhythm: regular Heart Sounds: Present: S1 & S2 - Extremities Extremities: no ischemia, No edema - Abdominal General gastrointestinal: Present: soft, non-tender, non-distended, normal bowel sounds - Integumentary Integumentary: Present: clear, warm - Musculoskeletal Musculoskeletal: strength equal bilaterally - Psychiatric Psychiatric: appropriate mood/affect, cooperative - Neurologic Neurologic: CNII-XII intact, moves all extremities Plan Activity: advance as tolerated, fall precautions Diet: diabetic Additional Instructions: Fall precautions. If you have worsening symptoms contact MD or go to emergency room Follow up with: PRIMARY CARE,MD [Primary Care Provider] - 3-5 Days Prescriptions: hydrALAZINE [Apresoline TAB] 10 mg PO Q8H #90 tablet Insulin NPH/Regular [NovoLIN 70/30] 20 unit SUB-Q BIDDIAB #1 vial
[2020-04-11 17:52] VITALS: BP 126/53
[2020-04-11] MEDS ORDERED: hydrALAZINE 25 MG TAB PO SCH ×2 (22:00)
== END 2020-04-11 20:11 | disposition home or self-care (01) | DRG 637 ==
LOC: ED 18:13 → CC1 22:12 → 4A 04-09 20:42
PROVIDERS: ADMIT Internal Medicine Geriatric Medicine; ATTEND Internal Medicine
PROC: 4A033R1 Measurement of Arterial Saturation, Peripheral, Percutaneous Approach (ICD-10-PCS; principal; 2020-04-08)
DX: E11.10 Type 2 diabetes mellitus with ketoacidosis without coma (principal); N17.0 Acute kidney failure with tubular necrosis; E87.1 Hypo-osmolality and hyponatremia; E87.5 Hyperkalemia; I10 Essential (primary) hypertension; E78.00 Pure hypercholesterolemia, unspecified; F17.210 Nicotine dependence, cigarettes, uncomplicated; D64.9 Anemia, unspecified; E78.2 Mixed hyperlipidemia; Z90.49 Acquired absence of other specified parts of digestive tract; Z91.14 Patient's other noncompliance with medication regimen; Z91.013 Allergy to seafood; Z79.4 Long term (current) use of insulin
CPT/HCPCS: 36415; 36600; 71045; 80048; 80053; 81001; 82803; 82947; 82962; 83036; 83735; 84100; 85007; 85025; 85610; 93005; G0378; A9270-GY; J0360; J1644; J1815; J7030